=== PATIENT | male | born 1945 | race Caucasian/White ===

== ENCOUNTER → 2018-03-16 14:08 | Outpatient (REF) | payer MEDICARE, MEDICAID, SELFPAY ==
[2018-03-16 20:36] LABS: Abs Immature Grans 0.02 k/cumm (0.0-0.09); Absolute Basophil Count 0.02 k/cumm (0.0-0.2); Absolute Eosinophil Count 0.28 k/cumm (0.0-0.7); Absolute Lymphocyte Count 2.43 k/cumm (1.2-3.4); Absolute Monocyte Count 0.88 k/cumm (0.11-0.7); Absolute Neutrophil Count 4.85 k/cumm (1.2-6.7); Basophils % 0.2; Eosinophils % 3.3; HCT 40.8 % (40.0-50.0); HGB 13.4 g/dL (13.5-17.5); Immature Grans % 0.2; Lymphocytes % 28.7; Mean Corp. HGB Concentration 32.8 g/dL (32.0-36.0); Mean Corpuscular Hemoglobin 30.2 pg (27.0-33.0); Mean Corpuscular Volume 92.1 fL (80-95); Mean Platelet Volume 10.5 fL (8.0-11.0); Monocytes % 10.4; Neutrophils % 57.2; Platelet Count 178 x1000/uL (130-400); RBC 4.43 m/cumm (4.50-6.00); RBC Distribution Width 13.7 % (11.8-14.1); White Blood Cell Count 8.48 k/cumm (4.4-10.8)
[2018-03-16 20:41] LABS: Anion Gap 7.9 mmol/L (3-11); BUN 19 mg/dL (7-18); CO2 28.1 mmol/L (21.0-32.0); CREATININE 0.93 mg/dL (0.70-1.30); Calcium 8.6 mg/dL (8.5-10.1); Chloride 103 mmol/L (98-107); Glucose 176 mg/dL (70-100); Potassium 4.7 mmol/L (3.5-5.1); Sodium 139 mmol/L (136-145)
[2018-03-16 21:13] LABS: Hemoglobin A1C 7.6 % (4.5-6.2)
== END ==
LOC: NCHCN 14:08
PROVIDERS: PCP Nurse Practitioner Family; Visit Provider Physician Assistant Medical
DX: E11.9 Type 2 diabetes mellitus without complications (principal); I48.91 Unspecified atrial fibrillation; I10 Essential (primary) hypertension; R25.2 Cramp and spasm; E66.01 Morbid (severe) obesity due to excess calories
CPT/HCPCS: 80048; 83036; 85025

== ENCOUNTER 2018-03-19 06:58 | Emergency (ER) | payer MEDICARE, MEDICAID, SELFPAY ==
[2018-03-19] VITALS (90 sets, daily range): BP systolic 102–176; BP diastolic 51–106; PULSE 55–72; RESP 13–25; TEMP 36.7–36.9; O2SAT 83–98
--- NOTE | 2018-03-19 07:12 | ED.GENADUL ---
Disposition Disposition: STILL A PATIENT Condition: Stable Medical Decision Making - EKG Data -: EKG Interpreted by Me EKG shows normal: sinus rhythm, axis, intervals Rate: normal Interpretation: no acute changes - Radiology Data Radiology results: pending - Medical Decision Making 72-year-old male with history of hypertension, hyperlipidemia, diabetes who is presenting with back pain, chest pressure, shortness of breath. Differential includes ACS, PE, dissection though less likely because of the localized back pain. He has taken full dose aspirin at home. He did take nitroglycerin with some relief at home. His EKG is sinus rhythm at a rate of 63. There are no acute ST changes noted. IV established and LR started. Will try some nitroglycerin again here. Will check laboratory studies including troponin. CT scan of the chest ordered to evaluate for dissection and PE. He has no abdominal pain or low back pain; it is all centralized between the shoulder blades. Case will be signed out to oncoming physician, Dr. Almonte. History of Present Illness - General Chief complaint: Chest Pain Stated complaint: SOB ,SHOULDER BLADE Time Seen by Provider: 03/19/18 07:07 Source: patient, RN notes reviewed, old records reviewed Mode of arrival: ambulatory Limitations: no limitations - History of Present Illness Initial comments: Patient presents to the ED with complaints of back pain, chest pain, shortness of breath. Patient was awake when he noticed back pain in the center of his scapula that he states felt like somebody hit him with a ball-peen hammer. Subsequently developed chest pressure and shortness of breath. [place] that his arms were heavy and somewhat painful bilaterally. No radiation of discomfort into the neck or jaw. [place] a little warm all over and a little weak. Has no nausea or vomiting. He did take a nitroglycerin which seemed to help but then the symptoms started to come back. He also took full dose aspirin at home. The back pain does not go up and down his back; it is fairly localized between the scapula. The chest pain is more of a pressure feeling. Shortness of breath has not really resolved. He subsequently came in for evaluation. He does have a history of atrial fibrillation but is not on blood thinners because of hematuria. He has a history of catheterization in the distant past which did not show blockage but did show vasospasm. He is a former smoker stopping many years ago. He does have history of diabetes, high cholesterol, hypertension. He did have an echo earlier this year with an EF of 50-60%. - Related Data Atorvastatin [Lipitor] 40 mg PO DAILY 09/05/15 Furosemide [Lasix] 20 mg PO DAILY 09/05/15 MetFORMIN CR [Glucophage Xr] 750 mg PO BID 09/05/15 Sennosides/Docusate Sodium [Senokot-S Tablet] 1 tab PO BID 11/25/16 Acetaminophen/Diphenhydramine [Acetaminophen Pm Geltab] 1 each PO HS PRN PRN 08/19/17 Acetaminophen [Pain Relief] 1,000 mg PO Q4H PRN PRN #0 08/20/17 Allopurinol 100 mg PO BID #0 08/20/17 Gabapentin 300 mg PO BID #0 08/20/17 Metoprolol Succinate [Toprol Xl] 25 mg PO DAILY #30 tab.er.24h 08/20/17 Nitroglycerin [Nitrostat] 0.4 mg SL Q5 MIN PRN X3 PRN #100 tab 08/20/17 Aspirin 325 mg PO DAILY AM 08/25/17 Ibuprofen 800 mg PO PRN PRN 08/25/17 Allergies Allergy/AdvReac Type Severity Reaction Status Date / Time No Known Allergies Allergy Unverified 03/19/18 07:11 Review of Systems Constitutional: denies: chills, diaphoresis, fever Eyes: denies: eye pain, vision change ENT: denies: ear pain, throat pain, congestion Respiratory: shortness of breath. denies: cough Cardiovascular: chest pain. denies: palpitations, syncope Gastrointestinal: denies: abdominal pain, nausea, vomiting, diarrhea Genitourinary: denies: dysuria Musculoskeletal: back pain Skin: denies: rash Neurological: denies: headache, weakness, numbness Past Medical History - Past Medical History Medical history: AFIB, CAD, cancer (bladder), diabetes, GERD, hyperlipidemia, hypertension migraines, ANIVAL Surgical history: cancer surgery, herniorraphy, other (B TKR) - Social History Smoking status: former smoker Alcohol use: none Drug use: none General Exam - General Limitations: no limitations General appearance: alert, in no apparent distress, obese - Head Head exam: Present: atraumatic, normocephalic - Eye Eye exam: Present: normal apperance - Neck Neck exam: Present: normal inspection, full ROM - Respiratory Respiratory exam: Present: normal lung sounds bilaterally. Absent: respiratory distress, chest wall tenderness - Cardiovascular Cardiovascular Exam: Present: regular rate, normal rhythm, normal heart sounds, other (distal pulses in tact) - GI/Abdominal GI/Abdominal exam: Present: soft. Absent: distended, tenderness, guarding - Extremities Exam Extremities exam: Present: pedal edema (baseline/chronic). Absent: calf tenderness - Back Exam Back exam: Absent: tenderness, vertebral tenderness - Neurological Exam Neurological exam: Present: alert, oriented X3, CN II-XII intact - Psychiatric Psychiatric exam: Present: normal affect, normal mood - Skin Skin exam: Present: warm, dry, intact Course Vital Signs - 24 hr 08/25/18 07:05 Temperature 98.1 F Pulse 64 Respiratory 23 Rate Blood Pressure 132/67 Pulse Oximetry 97
[2018-03-19] MEDS: Lactated Ringers 500 ML IV (07:27)
[2018-03-19 07:33] LABS: Abs Immature Grans 0.02 k/cumm (0.0-0.09); Absolute Basophil Count 0.02 k/cumm (0.0-0.2); Absolute Eosinophil Count 0.21 k/cumm (0.0-0.7); Absolute Monocyte Count 0.76 k/cumm (0.11-0.7); Absolute Neutrophil Count 5.27 k/cumm (1.2-6.7); Basophils % 0.3; Eosinophils % 2.6; HCT 39.9 % (40.0-50.0); Immature Grans % 0.3; Lymphocytes % 21.3; Mean Corp. HGB Concentration 32.6 g/dL (32.0-36.0); Mean Corpuscular Volume 91.9 fL (80-95); Mean Platelet Volume 9.9 fL (8.0-11.0); Monocytes % 9.5; Platelet Count 166 x1000/uL (130-400); RBC 4.34 m/cumm (4.50-6.00); RBC Distribution Width 13.8 % (11.8-14.1); White Blood Cell Count 7.98 k/cumm (4.4-10.8)
[2018-03-19 07:48] LABS: Prothrombin Time 9.7 sec (9.3-10.8)
[2018-03-19 07:49] LABS: ALT 31 U/L (12-78); AST 17 U/L (15-37); Albumin 3.4 g/dL (3.4-5.0); Alkaline Phosphatase 145 U/L (46-116); Anion Gap 5.6 mmol/L (3-11); BUN 16 mg/dL (7-18); Bilirubin, Total 0.8 mg/dL (0.2-1.0); CO2 28.4 mmol/L (21.0-32.0); CREATININE 0.81 mg/dL (0.70-1.30); Calcium 8.6 mg/dL (8.5-10.1); Chloride 103 mmol/L (98-107); Glucose 236 mg/dL (70-100); Magnesium 1.6 mg/dL (1.8-2.4); Potassium 4.2 mmol/L (3.5-5.1); Sodium 137 mmol/L (136-145); Total Protein 7.1 g/dL (6.4-8.2); Troponin I < 0.02 ng/mL (0.00-0.06)
--- NOTE | 2018-03-19 08:30 | DI.RPTCT_ITS ---
SYMPTOM/DIAGNOSIS: CHEST AND BACK PAIN, ? PE OR DISSECTION CTA OF THORAX: CT angiography was performed with multi slice acquisition and multi planar and 3D reconstruction. Routine CTA of the chest was performed following the uneventful administration of intravenous contrast material. No priors for comparison. Comparison chest xray is 11/21/15. There is no evidence of a pulmonary embolus. The thoracic aorta is intact. There is mild atherosclerosis but no evidence of thoracic aortic dissection or aneurysm. Heart size is within normal limits. No pericardial effusion is seen. No evidence of right ventricular dysfunction are present. No significant mediastinal, hilar or axillary adenopathy is present. No pleural effusion is seen. There may be a tiny right pleural effusion. The lungs show dependent infiltrates. These may represent atelectasis. Pneumonia cannot be excluded. No focal consolidating infiltrates are seen. No pulmonary nodules are present. Upper abdominal images appear to show tiny hyperdensities in the dependent portion of the gallbladder. This may represent gallstones. Degenerative changes are seen in the spine. There is a sclerotic focus seen in the left anterior third rib. This is present on prior chest xrays and is most consistent with a benign bone island. IMPRESSION: 1. No evidence of a pulmonary embolus, thoracic aortic dissection or aneurysm. 2. Dependent infiltrates in the lungs which may represent atelectasis. Pneumonia cannot be excluded. 3. Findings which may represent stones within the gallbladder.
[2018-03-19] MEDS: Omnipaque 350 MG/ML 100 ML BTL IJ (08:35)
--- NOTE | 2018-03-19 08:52 | DI.VRAD_ITS ---
EXAM: CT Angiography Chest With Intravenous Contrast EXAM DATE/TIME: 03/19/2018 8:02 AM CLINICAL HISTORY: 72 years old, male; Signs and symptoms; Other: Chest pain/back pain; R/O dissection, R/O pe TECHNIQUE: Axial computed tomographic angiography images of the chest with intravenous contrast using CT angiography protocol. Coronal and sagittal reformatted images were created and reviewed. MIP reconstructed images were created and reviewed. CONTRAST: 100 ml of Omnipaque 350 administered intravenously. COMPARISON: CR - CHEST 2 VIEWS PA,LAT 08/25/2017 3:05 PM FINDINGS: Pulmonary arteries: No evidence of pulmonary embolus to the segmental level. Aorta: No aneurysm of the ascending aorta. No dissection of the aorta. Lungs: Mild opacities in both lower lobes may represent atelectasis or pneumonia. Pleural space: There may be small bilateral pleural effusions.. Heart: Normal. No cardiomegaly. No pericardial effusion. Bones/joints: 1 cm sclerotic density noted in the left anterior third rib , compatible with bone island (enostosis) in patient without history of neoplastic disease.. Additional sclerotic densities in the thoracic vertebral bodies Nuclear medicine bone scan may be useful for further evaluation if clinically indicated. Soft tissues: Unremarkable. Lymph nodes: Unremarkable. No enlarged lymph nodes. Gallbladder and bile ducts: There may be gallstones in the gallbladder. IMPRESSION: 1. No evidence of pulmonary embolus to the segmental level. 2. No aneurysm of the ascending aorta. 3. No dissection of the aorta. 4. There may be small bilateral pleural effusions.. 5. Mild opacities in both lower lobes may represent atelectasis or pneumonia. 6. There may be gallstones in the gallbladder. Dictated and Authenticated by: Clare Nicholson MD. Ordering:ROGELIO UMAÑA MD
--- NOTE | 2018-03-19 09:34 | ED.FU ---
Disposition Disposition: STILL A PATIENT Condition: Stable Medical Decision Making - Lab Data Laboratory Tests 03/19/18 03/19/18 03/19/18 07:15 07:15 07:15 WBC 7.98 RBC 4.34 L Hgb 13.0 L Hct 39.9 L MCV 91.9 MCH 30.0 MCHC 32.6 RDW 13.8 Plt Count 166 MPV 9.9 Immature Gran % 0.3 Neutrophils % 66.0 Lymphocytes % 21.3 Monocytes % 9.5 Eosinophils % 2.6 Basophils % 0.3 Absolute Neutrophils 5.27 Absolute Lymphocytes 1.70 Absolute Monocytes 0.76 H Absolute Eosinophils 0.21 Absolute Basophils 0.02 PT 9.7 INR 1.0 APTT 22.0 Sodium 137 Potassium 4.2 Chloride 103 Carbon Dioxide 28.4 Anion Gap 5.6 BUN 16 Creatinine 0.81 Estimated GFR/1.73 m2 >= 60.00 Glucose 236 H Calcium 8.6 Magnesium 1.6 L Total Bilirubin 0.8 AST 17 ALT 31 Alkaline Phosphatase 145 H Troponin I < 0.02 Total Protein 7.1 Albumin 3.4 Care Signed Out By:: Darian - Vital Signs Recent Vitals - 8H: Vital Signs - 8 hr 03/19/18 03/19/18 03/19/18 06:59 07:00 07:01 Temperature Pulse 61 Respiratory 17 14 20 Rate Blood Pressure 140/67 Pulse Oximetry 97 97 97 03/19/18 03/19/18 03/19/18 07:02 07:05 07:10 Temperature 36.7 C Pulse 62 64 Respiratory 20 23 20 Rate Blood Pressure 132/67 132/67 Pulse Oximetry 97 97 96 03/19/18 03/19/18 03/19/18 07:15 07:17 07:20 Temperature Pulse 61 Respiratory 23 21 17 Rate Blood Pressure 110/61 Pulse Oximetry 97 94 L 03/19/18 03/19/18 03/19/18 07:30 07:31 07:38 Temperature Pulse 61 61 Respiratory 19 14 19 Rate Blood Pressure 119/69 104/60 Pulse Oximetry 92 L 96 93 L 03/19/18 03/19/18 03/19/18 07:40 07:42 07:46 Temperature Pulse 66 60 Respiratory 16 15 18 Rate Blood Pressure 102/51 106/59 Pulse Oximetry 90 L 91 L 03/19/18 03/19/18 03/19/18 07:50 08:00 08:01 Temperature Pulse 55 L Respiratory 17 15 16 Rate Blood Pressure 109/64 Pulse Oximetry 95 93 L 94 L 03/19/18 03/19/18 03/19/18 08:29 08:30 08:32 Temperature Pulse 56 L Respiratory 20 18 15 Rate Blood Pressure 116/66 Pulse Oximetry 96 96 03/19/18 03/19/18 03/19/18 08:40 08:47 08:50 Temperature Pulse 56 L Respiratory 20 17 15 Rate Blood Pressure 108/57 Pulse Oximetry 97 96 96 03/19/18 03/19/18 03/19/18 09:00 09:01 09:10 Temperature Pulse 59 L Respiratory 22 18 16 Rate Blood Pressure 106/68 Pulse Oximetry 97 98 96 03/19/18 03/19/18 09:16 09:20 Temperature Pulse 56 L Respiratory 17 16 Rate Blood Pressure 128/74 Pulse Oximetry 97 96 - Continuation of Care Continuation of Care Plan: Patient's CT Angio results have returned from virtual radiology and show no evidence of aortic dissection pulmonary embolism or aortic aneurysm. There may be small bilateral pleural effusions over the superior very benign. Mild opacities in both lower lobes that may represent atelectasis or pneumonia. May be gallstones in the gallbladder. Patient's initial troponin is negative. Because of the patient's cardiac risk factors of hypertension, high cholesterol, distant tobacco use, obesity, family history of cardiac disease, and diabetes I feel that at the very least she requires serial troponins. Currently the hospital is full, we will get his second troponin reevaluate for potential placement options. 11:12 AM EKG Rate 56, NJ 200, QTc 413, QRS 112, sinus bradycardia, no ST elevations or depressions, inverted T-wave in lead III. Q-wave in lead III and small Q-wave in aVF. 11:40 AM Patient serial troponins are negative, EKGs are consistently normal. I did discuss the case with Dr. Ferreira the hospitalist for potential observation versus discharge. We reviewed the patient's [facility] lab work, and procedures, and on 12/09/2017 which was 3 months ago the patient had a negative stress test results are as follows: No ischemia or scar. Left ventricular function is normal. With a recent negative stress test, 2 negative serial troponins we will get one additional troponin. We did get the patient up and ambulate him around the department multiple times, he developed no chest pain shortness of breath or arm pain. I had a long discussion with the hospitalist, patient, and myself regarding potential discharge with close follow-up on Wednesday, potential outpatient stress test, cardiology follow-up at his primary [facility] at [facility], versus admission, through shared decision making process of reviewing all the risks and benefits, the patient has elected for discharge home. I had an extremely long and thorough discussion with the patient and his family at bedside regarding red flags for which to return including any repeat of his symptoms, worsening pain, or other factors including diaphoresis arm pain neck pain the patient understands. Patient does have home nitroglycerin. Upon review of the patient's previous discharge instructions and his home medications he already is on a statin medication and beta-ana rosa. With a negative stress test just a few months ago, negative cardiac catheterization, and history of Prinzmetal's angina, the patient may benefit from calcium channel blockers and however he has been on these before and did not tolerate them well secondary to edema. We will maintain his current beta-ana rosa regimen. We will repeat troponin for the third stroke, and if this is normal, will maintain the plan the patient will be discharged home with close follow-up. 4:04 PM The patient's third troponin has returned normal. EKG continues to remain normal. The patient continues to remain chest pain-free, arm pain or neck pain free. Remainder of his workup has been benign. Patient's EKG is unchanged. I feel that it is appropriate after discussion with the patient, and the remainder of the medical staff to discharge the patient with close cardiac follow-up. As discussed previously we had a long discussion regarding red flags for which to immediately return the patient understands. He will follow outpatient with his [facility], a stress test will be scheduled, and he will return if he has any worsening or return of his symptoms. I have extensively reviewed the treatment plan and discharge instructions with the patient and their family. I have addressed all patient concerns at this time. The patient and family was made aware of what symptoms to monitor for that would warrant a return to the emergency department. Discussed the plan with the patient and family, they demonstrate verbal understanding and agreement with our assessment and plan at this time. EKG 15: 17 Rate 66, NJ 188, QTc 430, QRS 114, sinus rhythm, no ST elevations or depressions, no significant T-wave inversions. Q waves noted in lead III and a single inverted T-wave in lead III..
--- NOTE | 2018-03-19 09:37 | ED.FU_ITS ---
Disposition Disposition: STILL A PATIENT Condition: Stable Medical Decision Making - Lab Data Laboratory Tests 03/19/18 03/19/18 03/19/18 07:15 07:15 07:15 WBC 7.98 RBC 4.34 L Hgb 13.0 L Hct 39.9 L MCV 91.9 MCH 30.0 MCHC 32.6 RDW 13.8 Plt Count 166 MPV 9.9 Immature Gran % 0.3 Neutrophils % 66.0 Lymphocytes % 21.3 Monocytes % 9.5 Eosinophils % 2.6 Basophils % 0.3 Absolute Neutrophils 5.27 Absolute Lymphocytes 1.70 Absolute Monocytes 0.76 H Absolute Eosinophils 0.21 Absolute Basophils 0.02 PT 9.7 INR 1.0 APTT 22.0 Sodium 137 Potassium 4.2 Chloride 103 Carbon Dioxide 28.4 Anion Gap 5.6 BUN 16 Creatinine 0.81 Estimated GFR/1.73 m2 >= 60.00 Glucose 236 H Calcium 8.6 Magnesium 1.6 L Total Bilirubin 0.8 AST 17 ALT 31 Alkaline Phosphatase 145 H Troponin I < 0.02 Total Protein 7.1 Albumin 3.4 Care Signed Out By:: Darian - Vital Signs Recent Vitals - 8H: Vital Signs - 8 hr 03/19/18 03/19/18 03/19/18 06:59 07:00 07:01 Temperature Pulse 61 Respiratory 17 14 20 Rate Blood Pressure 140/67 Pulse Oximetry 97 97 97 03/19/18 03/19/18 03/19/18 07:02 07:05 07:10 Temperature 36.7 C Pulse 62 64 Respiratory 20 23 20 Rate Blood Pressure 132/67 132/67 Pulse Oximetry 97 97 96 03/19/18 03/19/18 03/19/18 07:15 07:17 07:20 Temperature Pulse 61 Respiratory 23 21 17 Rate Blood Pressure 110/61 Pulse Oximetry 97 94 L 03/19/18 03/19/18 03/19/18 07:30 07:31 07:38 Temperature Pulse 61 61 Respiratory 19 14 19 Rate Blood Pressure 119/69 104/60 Pulse Oximetry 92 L 96 93 L 03/19/18 03/19/18 03/19/18 07:40 07:42 07:46 Temperature Pulse 66 60 Respiratory 16 15 18 Rate Blood Pressure 102/51 106/59 Pulse Oximetry 90 L 91 L 03/19/18 03/19/18 03/19/18 07:50 08:00 08:01 Temperature Pulse 55 L Respiratory 17 15 16 Rate Blood Pressure 109/64 Pulse Oximetry 95 93 L 94 L 03/19/18 03/19/18 03/19/18 08:29 08:30 08:32 Temperature Pulse 56 L Respiratory 20 18 15 Rate Blood Pressure 116/66 Pulse Oximetry 96 96 03/19/18 03/19/18 03/19/18 08:40 08:47 08:50 Temperature Pulse 56 L Respiratory 20 17 15 Rate Blood Pressure 108/57 Pulse Oximetry 97 96 96 03/19/18 03/19/18 03/19/18 09:00 09:01 09:10 Temperature Pulse 59 L Respiratory 22 18 16 Rate Blood Pressure 106/68 Pulse Oximetry 97 98 96 03/19/18 03/19/18 09:16 09:20 Temperature Pulse 56 L Respiratory 17 16 Rate Blood Pressure 128/74 Pulse Oximetry 97 96 - Continuation of Care Continuation of Care Plan: Patient's CT Angio results have returned from virtual radiology and show no evidence of aortic dissection pulmonary embolism or aortic aneurysm. There may be small bilateral pleural effusions over the superior very benign. Mild opacities in both lower lobes that may represent atelectasis or pneumonia. May be gallstones in the gallbladder. Patient's initial troponin is negative. Because of the patient's cardiac risk factors of hypertension, high cholesterol , distant tobacco use, obesity, family history of cardiac disease, and diabetes I feel that at the very least she requires serial troponins. Currently the hospital is full, we will get his second troponin reevaluate for potential placement options. 11:12 AM EKG Rate 56, ID 200, QTc 413, QRS 112, sinus bradycardia, no ST elevations or depressions, inverted T-wave in lead III. Q-wave in lead III and small Q-wave in aVF. 11:40 AM Patient serial troponins are negative, EKGs are consistently normal. I did discuss the case with Dr. Ferreira the hospitalist for potential observation versus discharge. We reviewed the patient's [facility] lab work, and procedures , and on 12/09/2017 which was 3 months ago the patient had a negative stress test results are as follows: No ischemia or scar. Left ventricular function is normal. With a recent negative stress test, 2 negative serial troponins we will get one additional troponin. We did get the patient up and ambulate him around the department multiple times, he developed no chest pain shortness of breath or arm pain. I had a long discussion with the hospitalist, patient, and myself regarding potential discharge with close follow-up on Wednesday, potential outpatient stress test, cardiology follow-up at his primary [employer] at [facility], versus admission, through shared decision making process of reviewing all the risks and benefits, the patient has elected for discharge home. I had an extremely long and thorough discussion with the patient and his family at bedside regarding red flags for which to return including any repeat of his symptoms, worsening pain, or other factors including diaphoresis arm pain neck pain the patient understands. Patient does have home nitroglycerin. Upon review of the patient's previous discharge instructions and his home medications he already is on a statin medication and beta-ana rosa. With a negative stress test just a few months ago, negative cardiac catheterization, and history of Prinzmetal's angina, the patient may benefit from calcium channel blockers and however he has been on these before and did not tolerate them well secondary to edema. We will maintain his current beta-ana rosa regimen. We will repeat troponin for the third stroke, and if this is normal, will maintain the plan the patient will be discharged home with close follow-up. 4:04 PM The patient's third troponin has returned normal. EKG continues to remain normal. The patient continues to remain chest pain-free, arm pain or neck pain free. Remainder of his workup has been benign. Patient's EKG is unchanged. I feel that it is appropriate after discussion with the patient, and the remainder of the medical staff to discharge the patient with close cardiac follow-up. As discussed previously we had a long discussion regarding red flags for which to immediately return the patient understands. He will follow outpatient with his [employer], a stress test will be scheduled, and he will return if he has any worsening or return of his symptoms. I have extensively reviewed the treatment plan and discharge instructions with the patient and their family. I have addressed all patient concerns at this time. The patient and family was made aware of what symptoms to monitor for that would warrant a return to the emergency department. Discussed the plan with the patient and family, they demonstrate verbal understanding and agreement with our assessment and plan at this time. EKG 15: 17 Rate 66, ID 188, QTc 430, QRS 114, sinus rhythm, no ST elevations or depressions , no significant T-wave inversions. Q waves noted in lead III and a single inverted T-wave in lead III..
[2018-03-19 11:21] LABS: Troponin I < 0.02 ng/mL (0.00-0.06)
--- NOTE | 2018-03-19 12:36 | NUR.NOTE ---
Nursing Note: Patient ambulated for several minutes. O2 saturation between 95-98% HR 78-82. Pt did not complain of any chest pain, sob, dizziness, or any other symptoms. J Gage, DO aware.
[2018-03-19 15:59] LABS: Troponin I < 0.02 ng/mL (0.00-0.06)
== END 2018-03-19 16:20 | disposition home or self-care (01) ==
PROVIDERS: Emergency Medicine; Emergency Provider Student in an Organized Health Care Education/Training Program; PCP Nurse Practitioner Family
DX: R07.9 Chest pain, unspecified (principal); M54.6 Pain in thoracic spine; R06.02 Shortness of breath; I10 Essential (primary) hypertension; E11.9 Type 2 diabetes mellitus without complications; Z79.84 Long term (current) use of oral hypoglycemic drugs; I48.91 Unspecified atrial fibrillation; I25.10 Atherosclerotic heart disease of native coronary artery without angina pectoris
CPT/HCPCS: 71275; 93005; 96360; 96361; 99285 ×2; 36415; 80053; 83735; 84484; 85025; 85610; 85730; 93010; J3490

== ENCOUNTER 2018-06-20 09:44 | Outpatient (REF) | payer MEDICARE, SELFPAY ==
[2018-06-20 21:29] LABS: Anion Gap 10.3 mmol/L (3-11); BUN 28 mg/dL (7-18); Bilirubin Negative (Negative); Blood Trace-lysed (Negative); CO2 24.7 mmol/L (21.0-32.0); CREATININE 0.86 mg/dL (0.70-1.30); Calcium 8.9 mg/dL (8.5-10.1); Chloride 103 mmol/L (98-107); Clarity Clear; Glucose 202 mg/dL (70-100); Glucose 250 mg/dL (Negative); Ketones Negative (Negative); LDL CHOLESTEROL 76 mg/dL (<100); Leukocyte Esterase Negative (Negative); Magnesium 1.7 mg/dL (1.8-2.4); Nitrite Negative (Negative); Potassium 4.6 mmol/L (3.5-5.1); Sodium 138 mmol/L (136-145); Specific Gravity 1.025 (1.005-1.025); Urobilinogen 0.2 EU/dL (Up TO 0.2); pH 5.5 (5-8)
[2018-06-20 21:32] LABS: Abs Immature Grans 0.02 k/cumm (0.0-0.09); Absolute Basophil Count 0.04 k/cumm (0.0-0.2); Absolute Eosinophil Count 0.22 k/cumm (0.0-0.7); Absolute Lymphocyte Count 2.22 k/cumm (1.2-3.4); Absolute Monocyte Count 0.76 k/cumm (0.11-0.7); Absolute Neutrophil Count 4.57 k/cumm (1.2-6.7); Basophils % 0.5; Eosinophils % 2.8; HCT 40.9 % (40.0-50.0); HGB 13.5 g/dL (13.5-17.5); Immature Grans % 0.3; Lymphocytes % 28.4; Mean Corpuscular Hemoglobin 30.2 pg (27.0-33.0); Mean Corpuscular Volume 91.5 fL (80-95); Mean Platelet Volume 10.9 fL (8.0-11.0); Monocytes % 9.7; Neutrophils % 58.3; Platelet Count 180 x1000/uL (130-400); RBC 4.47 m/cumm (4.50-6.00); RBC Distribution Width 13.5 % (11.8-14.1); White Blood Cell Count 7.83 k/cumm (4.4-10.8)
[2018-06-20 21:58] LABS: Epithelial Cells Negative HPF (Negative); RBC 0-2 (0-2); WBC Negative HPF (0-5)
[2018-06-20 21:59] LABS: Bacteria Rare HPF (Negative); C & S Indicated? No; Casts Negative LPF (Negative); Crystals Negative HPF (Negative); Mucus Trace (Negative); Other Cells Negative (Negative)
[2018-06-20 22:37] LABS: HDL Cholesterol 54 mg/dL (40-60)
[2018-06-20 22:56] LABS: Creatine Kinase 43 U/L (39-308)
== END 2018-06-20 10:04 ==
LOC: NCHCN 09:44
PROVIDERS: PCP Nurse Practitioner Family; Visit Provider Nurse Practitioner Family
DX: R25.2 Cramp and spasm (principal); I48.91 Unspecified atrial fibrillation; E11.9 Type 2 diabetes mellitus without complications; I10 Essential (primary) hypertension; E78.5 Hyperlipidemia, unspecified; R31.0 Gross hematuria; M75.100 Unspecified rotator cuff tear or rupture of unspecified shoulder, not specified as traumatic
CPT/HCPCS: 80048; 82550; 83721; 81003; 81015; 83718; 83735; 85025

== ENCOUNTER 2018-06-28 00:52 | Outpatient (CLI) | payer MEDICARE, SELFPAY ==
--- NOTE | 2018-07-07 14:27 | DIABASSESS_ITS ---
Date of service: 07/07/18 Time of Service: 14:04 Diabetes Note NOTE: DESCRIPTION/ASSESSMENT: Kelvin Mejía presents for diabetes support focused on medical nutrition therapy. He was last seen 2014. He has had a recent increase in A1c to 9.6. He manages diabetes with Metformin 1000mg twice daily. Kelvin tests his blood sugar fasting 161-206 over past week. He eats 2 egs and phipps for breakfast; snacks on fruit at lunch, meat, canned or frozen vegetables and potato or sweet potato for suppler. He does love to make donuts and pie and tries to give it away. Kelvin voices understanding of foods that raise his blood sugar. Kelvin has back and knee pain which makes walking a challenge, although he does walk on his road. Kelvin denies stress and he has a friend and grandchildren for company and support. He has many stories about horses, hunting and tractors which he enjoys remembering and passing on his knowledge and expertise to his grandchildren. INTERVENTION: Reviewed basics of diabetes food guide with focus on ways to increase the resistant starch in the foods that he wants to eat. Discussed portions. Discussed blood sugar goal of 130 range and encouraged him to think about what might be causing hyperglycemia including pain, infection, food and physical activity. Discussed physical activity and ways to walk 10 minutes daily and he feels he can do this. PLAN: Kelvin agrees to: Cool starches before eating; cut his portions of starch Walk 10+ minutes every day outside as possible Increase vegetable portions and participate in [employer]. Time Spent in Nutritional Counseling and Treatment: 65 minutes face to face
== END 2018-06-28 01:12 ==
PROVIDERS: PCP Nurse Practitioner Family; Visit Provider Dietitian, Registered
DX: E11.9 Type 2 diabetes mellitus without complications (principal); Z71.3 Dietary counseling and surveillance
CPT/HCPCS: 97802

== ENCOUNTER 2018-08-06 08:07 | Emergency (ER) | payer MEDICARE, SELFPAY ==
[2018-08-06] VITALS (90 sets, daily range): BP systolic 110–181; BP diastolic 73–112; PULSE 61–74; RESP 8–23; TEMP 36.7; O2SAT 90–100
--- NOTE | 2018-08-06 08:24 | DI.RAD_ITS ---
SYMPTOM/DIAGNOSIS: CHEST PAIN, R/O ACUTE DISEASE PA AND LATERAL CHEST: Comparison is made with 25 Aug 2017. The exam is limited by poor pulmonary inflation. The heart appears enlarged. The aorta is tortuous. No focal infiltrate or effusion is seen. IMPRESSION: Limited exam. No acute abnormality is identified.
--- NOTE | 2018-08-06 08:27 | ED.GENADUL_ITS ---
Discharge Plan Disposition Patient Disposition: [facility] Condition: Stable Discharge Details Chief Complaint: Chest Pain Clinical Impression: Chest pain, rule out acute myocardial infarction Primary Care Provider: Merna Chino ED Provider: Carley Gama Home Meds and New Rx's Prescriptions: No Action atorvastatin [Lipitor] 40 MG tablet 40 mg PO DAILY RF: 0 furosemide 20 MG tablet 20 mg PO DAILY RF: 0 metformin 750 MG tablet extended release 24 hr 1,000 mg PO BID RF: 0 sennosides-docusate sodium [Senokot-S] 1 EACH tablet 1 tab PO BID RF: 0 ibuprofen 800 MG tablet 800 mg PO PRN PRNRF: 0 aspirin 325 MG tablet 325 mg PO DAILY AM RF: 0 diphenhydramine-acetaminophen [Acetaminophen PM] 1 EACH tablet 1 ea PO HS PRN PRN (Reason: Sleep) RF: 0 nitroglycerin [Nitrostat] 0.4 MG tablet, sublingual 0.4 mg Sublingual Q5 MIN PRN X3 PRNQty: 100 RF: 0 allopurinol 100 MG tablet 100 mg PO BID Qty: 0 RF: 0 acetaminophen [Pain Relief] 500 MG tablet 1,000 mg PO Q4H PRN PRNQty: 0 RF: 0 gabapentin 300 MG capsule 300 mg PO BID Qty: 0 RF: 0 diltiazem HCl 240 mg Capsule,Extended Release 24 Hr 240 mg PO DAILY RF: 0 finasteride 5 mg Tablet 5 mg PO DAILY RF: 0 Metoprolol Succinate [Toprol Xl] 25 MG Tab.Er.24h 50 mg PO DAILY RF: 0 pantoprazole [Protonix] 40 mg Tablet,Delayed Release (Dr/Ec) 40 mg PO DAILY RF: 0 Discharge Data Discharge Date/Time-TO BE ENTERED AT DEPARTURE: 08/06/18 16:49 Medical Decision Making 72-year-old male with history of paroyxsmal atrial fibrillation, coronary artery disease, diabetes, hypertension, high cholesterol, GERD and history of bladder cancer with chest pain and pain between scapula since 3am. EKG notes a rate of 70, sinus, no acute ST elevation or depression. Review of [facility] records note that patient was seen at [facility] yesterday for cardiac CT. Physician notes from Dr. Lizette Jason administrative tech on 07/13/18 noted that patient was having a cardiac CT done to evaluate for consideration for blood thinners versus a watchman procedure. He had been taking Eliquis but this was stopped due to recent hematuria. He had a nuclear stress test in November 2017 which was negative and he had an echocardiogram in October 2017 which noted an EF of 76%. 1000 --labs and imaging reviewed. Normal white blood cell count. Glucose 220. Magnesium 1.7. Troponin negative. Chest x-ray negative. Mediastinum and noted to be stable. Patient complained of return of chest and back pain. Nitropaste ordered. 1015 --discussed with [facility] cardiology. Presentation can be likely consistent with angina versus coronary spasm. Recommend removing Nitropaste, to assess patient's chest pain and give sublingual nitro if needed. Noted patient to be on diltiazem last month, which does not appear patients with this today. Also recommend checking upper extremity and lower extremity blood pressures. Recommends patient be admitted for chest pain rule out with serial troponins. Discussed that there are no beds available here, they are only excepting emergent transfers but will place patient on their list if potential discharges. 1055 --left arm BP 132/86, right arm BP 150/76, left leg BP 157/93. 1230 --discussed with [facility] Sandee Augustin nurse practitioner - accepts patient for transfer. 1310 --[facility] called to state they have a bed available for this patient. As patient is followed at [facility], will transfer patient to [facility] instead of [facility]. [facility] notified. Medical Records Medical records reviewed: Yes I reviewed the patient's medical records. Imaging Data Radiologic Study: Radiologist's impression: XR Chest, 2 Views EXAM DATE/TIME: 08/06/2018 8:26 AM CLINICAL HISTORY: 72 years old, male; Pain; Chest pain; Type not specified; Patient HX: Rule out acute process; Additional info: Concern about widened mediastinum TECHNIQUE: XR of the chest, 2 views. COMPARISON: CR CHEST 2 VIEWS PA,LAT 08/25/2017 3:05 PM FINDINGS: Lungs: Unremarkable. No consolidation. Pleural space: Unremarkable. No pleural effusion. No pneumothorax. Heart/Mediastinum: Mediastinum stable from previous examination. If there is concern for aortic pathology, recommend enhanced CT examination. Vasculature: Aortic ectasia. Bones/joints: Unremarkable. IMPRESSION: Mediastinum stable from previous examination. If there is concern for aortic pathology, recommend enhanced CT examination. Lab Data Lab results reviewed: Yes I reviewed the patient's lab results. Laboratory Tests Range/Units 08/06/18 08/06/18 08/06/18 08:20 08:20 11:54 WBC (4.4-10.8) k/cumm 7.38 RBC (4.50-6.00) m/cumm 4.30 L Hgb (13.5-17.5) g/dL 13.2 L Hct (40.0-50.0) % 39.7 L MCV (80-95) fL 92.3 MCH (27.0-33.0) pg 30.7 MCHC (32.0-36.0) g/dL 33.2 RDW (11.8-14.1) % 13.2 Plt Count (130-400) x1000/uL 166 MPV (8.0-11.0) fL 10.0 Immature Gran % 0.1 Neutrophils % 57.8 Lymphocytes % 28.2 Monocytes % 9.6 Eosinophils % 3.9 Basophils % 0.4 Absolute Neutrophils (1.2-6.7) k/cumm 4.26 Absolute Lymphocytes (1.2-3.4) k/cumm 2.08 Absolute Monocytes (0.11-0.7) k/cumm 0.71 H Absolute Eosinophils (0.0-0.7) k/cumm 0.29 Absolute Basophils (0.0-0.2) k/cumm 0.03 Sodium (136-145) mmol/L 140 Potassium (3.5-5.1) mmol/L 4.5 Chloride (98-107) mmol/L 102 Carbon Dioxide (21.0-32.0) mmol/L 28.0 Anion Gap (3-11) mmol/L 10.0 BUN (7-18) mg/dL 24 H Creatinine (0.70-1.30) mg/dL 1.03 Estimated GFR/1.73 m2 (mL/min/1.73m2) >= 60.00 Glucose (70-100) mg/dL 220 H Calcium (8.5-10.1) mg/dL 8.7 Magnesium (1.8-2.4) mg/dL 1.7 L Total Bilirubin (0.2-1.0) mg/dL 0.4 AST (15-37) U/L 18 ALT (12-78) U/L 36 Alkaline Phosphatase (46-116) U/L 140 H Troponin I (0.00-0.06) ng/mL < 0.02 < 0.02 Total Protein (6.4-8.2) g/dL 7.0 Albumin (3.4-5.0) g/dL 3.4 Range/Units 08/06/18 16:30 WBC (4.4-10.8) k/cumm RBC (4.50-6.00) m/cumm Hgb (13.5-17.5) g/dL Hct (40.0-50.0) % MCV (80-95) fL MCH (27.0-33.0) pg MCHC (32.0-36.0) g/dL RDW (11.8-14.1) % Plt Count (130-400) x1000/uL MPV (8.0-11.0) fL Immature Gran % Neutrophils % Lymphocytes % Monocytes % Eosinophils % Basophils % Absolute Neutrophils (1.2-6.7) k/cumm Absolute Lymphocytes (1.2-3.4) k/cumm Absolute Monocytes (0.11-0.7) k/cumm Absolute Eosinophils (0.0-0.7) k/cumm Absolute Basophils (0.0-0.2) k/cumm Sodium (136-145) mmol/L Potassium (3.5-5.1) mmol/L Chloride (98-107) mmol/L Carbon Dioxide (21.0-32.0) mmol/L Anion Gap (3-11) mmol/L BUN (7-18) mg/dL Creatinine (0.70-1.30) mg/dL Estimated GFR/1.73 m2 (mL/min/1.73m2) Glucose (70-100) mg/dL Calcium (8.5-10.1) mg/dL Magnesium (1.8-2.4) mg/dL Total Bilirubin (0.2-1.0) mg/dL AST (15-37) U/L ALT (12-78) U/L Alkaline Phosphatase (46-116) U/L Troponin I (0.00-0.06) ng/mL < 0.02 Total Protein (6.4-8.2) g/dL Albumin (3.4-5.0) g/dL ECG Data Attestation: I personally reviewed and interpreted this ECG (s) as follows: Interpretation: 08: Rate of 70, sinus, no acute ST elevation or depression, QTC 427, QRS 110 HPI General Mode of arrival: ambulatory . Date/Time Provider Initiated Documentation: 08/06/18 08:17 . Limitations to Documentation: no limitations . Information obtained by: patient . HPI Narrative: Patient is a 72-year-old male with a history of diabetes, coronary artery disease, atrial fibrillation, GERD, hypertension, hyperlipidemia, bladder answer and obstructive sleep apnea who presents to the ED with complaint of chest pain and back pain since 3 AM this morning. Patient states he felt fatigued with leg cramps last night prior to bed but had no chest or back pain. Patient states he had difficulty sleeping due to his leg cramps and awoke to take Tylenol and developed substernal pressure-like chest pain and mid back pain between his scapula while laying in bed. He denies any other radiation of pain. He also admits to feeling unsteady and short of breath at times. Patient states he took 3 nitro with some relief after the second and third nitro. Patient states the chest pain and back pain resolved while here in the ED. Patient states he has had this intermittent chest and back pain for the past several months for which she has occasionally taken nitro with relief, but was told by his PCP and administrative tech to go to the emergency department if he does not have relief of his pain with nitro. Patient states he was seen at [facility] yesterday for scheduled imaging for issues related to my heart . Patient denies any fever, cough, vomiting, diarrhea, recent hospital admission. Patient states he received a flu shot this year. Patient states he did not take his regular medications at this morning. Patient states he otherwise has been eating and drinking normally patient states his glucose yesterday was 181. Related Data Home Medications Medication Instructions Recorded Confirmed atorvastatin [Lipitor] 40 mg PO DAILY 09/05/15 08/06/18 furosemide 20 mg PO DAILY 09/05/15 08/06/18 metformin 1,000 mg PO BID 09/05/15 08/06/18 sennosides-docusate sodium 1 tab PO BID 05/03/17 01/12/19 [Senokot-S] diphenhydramine-acetaminophen 1 ea PO HS PRN PRN 08/19/17 08/06/18 [Acetaminophen PM] acetaminophen [Pain Relief] 1,000 mg PO Q4H PRN PRN #0 08/20/17 08/06/18 allopurinol 100 mg PO BID #0 08/20/17 08/06/18 gabapentin 300 mg PO BID #0 08/20/17 08/06/18 nitroglycerin [Nitrostat] 0.4 mg SUBLINGUAL Q5 MIN PRN X3 08/20/17 08/06/18 PRN #100 tab aspirin 325 mg PO DAILY AM 08/25/17 08/06/18 ibuprofen 800 mg PO PRN PRN 08/25/17 08/06/18 Metoprolol Succinate [Toprol Xl] 50 mg PO DAILY 08/06/18 08/06/18 diltiazem HCl 240 mg PO DAILY 08/06/18 08/06/18 finasteride 5 mg PO DAILY 08/06/18 08/06/18 pantoprazole [Protonix] 40 mg PO DAILY 08/06/18 08/06/18 Previous Rx's Medication Instructions Recorded acetaminophen [Pain Relief] 1,000 mg PO Q4H PRN PRN #0 08/20/17 allopurinol 100 mg PO BID #0 08/20/17 gabapentin 300 mg PO BID #0 08/20/17 nitroglycerin [Nitrostat] 0.4 mg SUBLINGUAL Q5 MIN PRN X3 08/20/17 PRN #100 tab Allergies Allergy/AdvReac Type Severity Reaction Status Date / Time No Known Allergies Allergy Unverified 08/06/18 08:17 General Stated Complaint: Chest Pain JACQUELINE: 2 Review of Systems Review of Systems All systems reviewed & are unremarkable except as noted in HPI and below Constitutional Reports as per HPI, Denies chills and Denies fever(s) Eyes Denies blurry vision ENT Reports dizziness, Denies sore throat and Denies throat swelling Cardiovascular Reports chest pain and Reports dyspnea Respiratory Reports dyspnea Gastrointestinal Denies abdominal pain, Denies diarrhea and Denies vomiting Genitourinary Denies hematuria and Denies dysuria Musculoskeletal Reports back pain and Denies numbness Integumentary/Breasts Denies lesions and Denies rash Neurologic Reports dizziness and Denies numbness Allergic/Immunologic Denies throat swelling [facility] Medical History Bladder cancer (Acute) Hyperlipemia (Acute) Atrial fibrillation (Chronic) Coronary artery disease (Chronic) Diabetes (Chronic) GERD (gastroesophageal reflux disease) (Chronic) HTN (hypertension) (Chronic) Migraine (Chronic) Obstructive sleep apnea (Chronic) Surgical History History of bladder surgery (Acute) History of hernia repair (Chronic) History of knee replacement (Chronic) Social History Smoking/Tobacco Use Status: Former Tobacco Use alcohol intake: former substance use type: does not use Exam Const General: cooperative, healthy appearing and no acute distress HENMT Head: normal to inspection Face and sinus: normal facial exam Eyes General: appearance normal, both eyes and all related structures Neck Neck: normal visual inspection Chest Chest: normal inspection of the chest and no tenderness Resp Effort & Inspection: normal respiratory effort and able to speak in complete sentences Auscultation: clear to auscultation bilaterally Cardio Rate: regular rate Rhythm: regular rhythm GI Inspection: normal to inspection and obesity Palpation: soft, not firm, not rigid and nontender Auscultation: normal bowel sounds Back/Spine/Pelvis Back: no CVA tenderness Thoracic/Lumbar Spine: thoracic and lumbar spine normal to inspection Skin General skin exam: no rashes or lesions noted Neuro General: alert, awake and oriented x3 Cognition: normal cognition Speech: speech normal Motor: muscle tone normal throughout Sensory Exam: no sensory deficits noted Extrem General: normal to inspection, full ROM, normal capillary refill, no calf tenderness bilaterally and edema Laterality: right (1+, chronic) Psych Appearance: grossly normal Mental Status: mental status grossly normal Speech and Movement: speech and movement normal Affect: normal affect Course Vital Signs Temperature 98.1 F 08/06/18 08:13 Pulse 71 08/06/18 08:13 Respiratory Rate 18 08/06/18 08:13 Blood Pressure 136/76 08/06/18 08:13 Pulse Oximetry 96 08/06/18 08:13 Temperature 98.1 F 08/06/18 08:13 Temperature Source Skin 08/06/18 08:13 Pulse 71 08/06/18 08:13 Respiratory Rate 18 08/06/18 08:13 Respiratory Effort 08/06/18 08:13 Blood Pressure 136/76 08/06/18 08:13 Blood Pressure Position Supine 08/06/18 08:13 Pulse Oximetry 96 08/06/18 08:13 Oxygen Delivery Method Room Air 08/06/18 08:13 Oxygen Flow Rate 0 08/06/18 08:13 Pain Level 3 08/06/18 08:13
[2018-08-06 08:33] LABS: Abs Immature Grans 0.01 k/cumm (0.0-0.09); Absolute Basophil Count 0.03 k/cumm (0.0-0.2); Absolute Eosinophil Count 0.29 k/cumm (0.0-0.7); Absolute Lymphocyte Count 2.08 k/cumm (1.2-3.4); Absolute Monocyte Count 0.71 k/cumm (0.11-0.7); Absolute Neutrophil Count 4.26 k/cumm (1.2-6.7); Basophils % 0.4; Eosinophils % 3.9; HCT 39.7 % (40.0-50.0); HGB 13.2 g/dL (13.5-17.5); Immature Grans % 0.1; Lymphocytes % 28.2; Mean Corp. HGB Concentration 33.2 g/dL (32.0-36.0); Mean Corpuscular Hemoglobin 30.7 pg (27.0-33.0); Mean Corpuscular Volume 92.3 fL (80-95); Monocytes % 9.6; Neutrophils % 57.8; Platelet Count 166 x1000/uL (130-400); RBC Distribution Width 13.2 % (11.8-14.1); White Blood Cell Count 7.38 k/cumm (4.4-10.8)
[2018-08-06 08:48] LABS: ALT 36 U/L (12-78); AST 18 U/L (15-37); Albumin 3.4 g/dL (3.4-5.0); Alkaline Phosphatase 140 U/L (46-116); BUN 24 mg/dL (7-18); Bilirubin, Total 0.4 mg/dL (0.2-1.0); CREATININE 1.03 mg/dL (0.70-1.30); Calcium 8.7 mg/dL (8.5-10.1); Chloride 102 mmol/L (98-107); Glucose 220 mg/dL (70-100); Magnesium 1.7 mg/dL (1.8-2.4); Potassium 4.5 mmol/L (3.5-5.1); Sodium 140 mmol/L (136-145)
[2018-08-06 08:50] LABS: Troponin I < 0.02 ng/mL (0.00-0.06)
[2018-08-06] MEDS: MAGNESIUM SULFATE 1 GM/100 ML BAG IVPB (09:18)
--- NOTE | 2018-08-06 10:01 | DI.VRAD_ITS ---
EXAM: XR Chest, 2 Views EXAM DATE/TIME: 08/06/2018 8:26 AM CLINICAL HISTORY: 72 years old, male; Pain; Chest pain; Type not specified; Patient HX: Rule out acute process; Additional info: Concern about widened mediastinum TECHNIQUE: XR of the chest, 2 views. COMPARISON: CR CHEST 2 VIEWS PA,LAT 08/25/2017 3:05 PM FINDINGS: Lungs: Unremarkable. No consolidation. Pleural space: Unremarkable. No pleural effusion. No pneumothorax. Heart/Mediastinum: Mediastinum stable from previous examination. If there is concern for aortic pathology, recommend enhanced CT examination. Vasculature: Aortic ectasia. Bones/joints: Unremarkable. IMPRESSION: Mediastinum stable from previous examination. If there is concern for aortic pathology, recommend enhanced CT examination. Dictated and Authenticated by: Keila Lewis MD. Ordering:NOHEMY Howe MD
[2018-08-06 12:13] LABS: Troponin I < 0.02 ng/mL (0.00-0.06)
[2018-08-06] MEDS: Aspirin 325 MG TAB PO (13:17)
--- NOTE | 2018-08-06 13:49 | NUR.NOTE ---
1030 BP a 132/86- L arm, 157/93- L thigh, 150/76- RA. Nursing Note:
[2018-08-06 16:55] LABS: Troponin I < 0.02 ng/mL (0.00-0.06)
== END 2018-08-06 16:49 | disposition short-term general hospital (02) ==
PROVIDERS: Emergency Provider Physician Assistant; PCP Nurse Practitioner Family
DX: R07.9 Chest pain, unspecified (principal); E83.42 Hypomagnesemia; M54.6 Pain in thoracic spine; I48.91 Unspecified atrial fibrillation; I25.10 Atherosclerotic heart disease of native coronary artery without angina pectoris; E11.9 Type 2 diabetes mellitus without complications; Z79.84 Long term (current) use of oral hypoglycemic drugs; I10 Essential (primary) hypertension
CPT/HCPCS: 36415; 80053; 93005; 96365; 99285; 71046; 83735; 84484; 85025; 93010; J3475

== ENCOUNTER 2018-12-21 20:58 | Outpatient (REF) | payer MEDICARE, SELFPAY ==
[2018-12-21 20:43] LABS: Anion Gap 8.2 mmol/L (3-11); BUN 23 mg/dL (7-18); CO2 28.8 mmol/L (21.0-32.0); CREATININE 0.87 mg/dL (0.70-1.30); Calcium 8.9 mg/dL (8.5-10.1); Chloride 101 mmol/L (98-107); Glucose 158 mg/dL (70-100); Potassium 4.8 mmol/L (3.5-5.1); Sodium 138 mmol/L (136-145)
== END 2018-12-21 21:18 ==
LOC: NCHCN 20:58
PROVIDERS: PCP Nurse Practitioner Family; Visit Provider Nurse Practitioner Family
DX: I10 Essential (primary) hypertension (principal)
CPT/HCPCS: 80048

== ENCOUNTER 2019-04-27 22:43 | Outpatient (REF) | payer MEDICARE, SELFPAY ==
[2019-04-27 22:27] LABS: Uric Acid 6.3 mg/dL (3.5-7.2)
== END 2019-04-27 23:03 ==
LOC: NCHCN 22:43
PROVIDERS: PCP Nurse Practitioner Family; Visit Provider Nurse Practitioner Family
DX: E11.40 Type 2 diabetes mellitus with diabetic neuropathy, unspecified (principal); R60.9 Edema, unspecified
CPT/HCPCS: 84550

== ENCOUNTER 2019-09-15 10:44 | Outpatient (REF) | payer OTHER, SELFPAY ==
[2019-09-15 18:58] LABS: Anion Gap 11.7 mmol/L (3-11); BUN 30 mg/dL (7-18); CO2 28.3 mmol/L (21.0-32.0); CREATININE 1.28 mg/dL (0.70-1.30); Calcium 8.9 mg/dL (8.5-10.1); Chloride 97 mmol/L (98-107); Estimated GFR 54.94 (mL/min/1.73m2); Glucose 191 mg/dL (74-106); Potassium 4.5 mmol/L (3.5-5.1); Sodium 137 mmol/L (136-145)
== END 2019-09-15 11:04 ==
LOC: LBN 10:44
PROVIDERS: PCP Nurse Practitioner Family; Visit Provider Nurse Practitioner Family
DX: I48.91 Unspecified atrial fibrillation (principal); I50.33 Acute on chronic diastolic (congestive) heart failure
CPT/HCPCS: 80048

== ENCOUNTER 2019-09-21 09:44 | Outpatient (REF) | payer OTHER, SELFPAY ==
[2019-09-21 20:06] LABS: Anion Gap 10.4 mmol/L (3-11); BUN 44 mg/dL (7-18); CO2 28.6 mmol/L (21.0-32.0); CREATININE 1.69 mg/dL (0.70-1.30); Calcium 8.4 mg/dL (8.5-10.1); Chloride 99 mmol/L (98-107); Estimated GFR 39.87 (mL/min/1.73m2); Glucose 223 mg/dL (74-106); NT-proBNP 833 pg/mL (<300); Potassium 4.2 mmol/L (3.5-5.1); Sodium 138 mmol/L (136-145)
== END 2019-09-21 10:04 ==
LOC: NCHCN 09:44
PROVIDERS: PCP Nurse Practitioner Family; Visit Provider Physician Assistant Medical
DX: I50.9 Heart failure, unspecified (principal)
CPT/HCPCS: 80048; 83880

== ENCOUNTER 2019-09-28 10:08 | Outpatient (REF) | payer OTHER, SELFPAY ==
[2019-09-28 19:43] LABS: BUN 31 mg/dL (7-18); CREATININE 1.32 mg/dL (0.70-1.30); Calcium 8.7 mg/dL (8.5-10.1); Chloride 102 mmol/L (98-107); Estimated GFR 53.02 (mL/min/1.73m2); Glucose 183 mg/dL (74-106); NT-proBNP 1444 pg/mL (<300); Potassium 5.2 mmol/L (3.5-5.1); Sodium 141 mmol/L (136-145)
== END 2019-09-28 10:28 ==
LOC: NCHCN 10:08
PROVIDERS: Physician Assistant Medical; PCP Nurse Practitioner Family; Visit Provider Nurse Practitioner Family
DX: I50.9 Heart failure, unspecified (principal)
CPT/HCPCS: 80048; 83880

== ENCOUNTER 2019-10-02 15:54 | Outpatient (REF) | payer OTHER, SELFPAY ==
[2019-10-02 19:39] LABS: Anion Gap 11.2 mmol/L (3-11); BUN 37 mg/dL (7-18); CO2 26.8 mmol/L (21.0-32.0); Calcium 8.4 mg/dL (8.5-10.1); Chloride 100 mmol/L (98-107); Estimated GFR 49.54 (mL/min/1.73m2); Glucose 203 mg/dL (74-106); NT-proBNP 782 pg/mL (<300); Potassium 4.3 mmol/L (3.5-5.1); Sodium 138 mmol/L (136-145)
== END 2019-10-02 16:14 ==
LOC: NCHCN 15:54
PROVIDERS: PCP Nurse Practitioner Family; Visit Provider Nurse Practitioner Family
DX: I50.9 Heart failure, unspecified (principal); R60.9 Edema, unspecified; I48.91 Unspecified atrial fibrillation; E66.01 Morbid (severe) obesity due to excess calories
CPT/HCPCS: 80048; 83880

== ENCOUNTER 2019-10-03 08:35 | Outpatient (CLI) | payer OTHER, SELFPAY | END 2019-10-03 08:55 | PROVIDERS: PCP Nurse Practitioner Family; Visit Provider Internal Medicine Cardiovascular Disease | DX: I25.10 Atherosclerotic heart disease of native coronary artery without angina pectoris (principal); I48.91 Unspecified atrial fibrillation; I10 Essential (primary) hypertension; E11.9 Type 2 diabetes mellitus without complications; Z79.4 Long term (current) use of insulin | CPT/HCPCS: 99204; 99215; 93005; 93010 ==

== ENCOUNTER 2019-11-16 09:46 | Outpatient (REF) | payer OTHER, SELFPAY ==
[2019-11-16 19:20] LABS: Anion Gap 8.4 mmol/L (3-11); BUN 26 mg/dL (7-18); CO2 29.6 mmol/L (21.0-32.0); CREATININE 1.22 mg/dL (0.70-1.30); Calcium 8.9 mg/dL (8.5-10.1); Chloride 100 mmol/L (98-107); Estimated GFR 58.07 (mL/min/1.73m2); Glucose 172 mg/dL (74-106); NT-proBNP 479 pg/mL (<300); Potassium 4.6 mmol/L (3.5-5.1); Sodium 138 mmol/L (136-145)
== END 2019-11-16 10:06 ==
LOC: NCHCN 09:46
PROVIDERS: PCP Nurse Practitioner Family; Visit Provider Nurse Practitioner Family
DX: I50.9 Heart failure, unspecified (principal); I48.91 Unspecified atrial fibrillation
CPT/HCPCS: 80048; 83880

== ENCOUNTER 2020-01-01 11:00 | Outpatient (REF) | payer OTHER, SELFPAY ==
[2020-01-01 19:39] LABS: Abs Immature Grans 0.03 k/cumm (0.0-0.09); Absolute Basophil Count 0.01 k/cumm (0.0-0.2); Absolute Eosinophil Count 0.36 k/cumm (0.0-0.7); Absolute Lymphocyte Count 1.67 k/cumm (1.2-3.4); Absolute Monocyte Count 0.71 k/cumm (0.11-0.7); Absolute Neutrophil Count 4.47 k/cumm (1.2-6.7); Basophils % 0.1; HCT 36.6 % (40.0-50.0); HGB 11.7 g/dL (13.5-17.5); Immature Grans % 0.4 %; Mean Corpuscular Hemoglobin 30.3 pg (27.0-33.0); Mean Corpuscular Volume 94.8 fL (80-95); Mean Platelet Volume 10.8 fL (8.0-11.0); Monocytes % 9.8; Neutrophils % 61.7; Platelet Count 201 x1000/uL (130-400); RBC 3.86 m/cumm (4.50-6.00); RBC Distribution Width 15.3 % (11.8-14.1); White Blood Cell Count 7.25 k/cumm (4.4-10.8)
[2020-01-01 19:42] LABS: Bacteria Few HPF (Negative); Casts Negative LPF (Negative); Crystals Negative HPF (Negative); Epithelial Cells Negative HPF (Negative); Mucus Negative (Negative); Other Cells Few Renal (Negative); RBC 20-50 HPF (0-2)
[2020-01-01 19:43] LABS: C & S Indicated? C&S Done As Ordered
[2020-01-01 19:48] LABS: BUN 22 mg/dL (7-18); CREATININE 1.37 mg/dL (0.70-1.30); Calcium 8.8 mg/dL (8.5-10.1); Chloride 103 mmol/L (98-107); Estimated GFR 50.66 (mL/min/1.73m2); Glucose 188 mg/dL (74-106); HDL Cholesterol 40 mg/dL (40-60); LDL CHOLESTEROL 59 mg/dL (<100); Potassium 4.8 mmol/L (3.5-5.1); Sodium 141 mmol/L (136-145)
[2020-01-01 20:07] LABS: Uric Acid 5.2 mg/dL (3.5-7.2)
== END 2020-01-01 11:20 ==
LOC: NCHCN 11:00
PROVIDERS: PCP Nurse Practitioner Family; Visit Provider Nurse Practitioner Family
DX: I10 Essential (primary) hypertension (principal); I25.10 Atherosclerotic heart disease of native coronary artery without angina pectoris; M54.9 Dorsalgia, unspecified; E78.5 Hyperlipidemia, unspecified; M10.9 Gout, unspecified
CPT/HCPCS: 80048; 83721; 81015; 83718; 84550; 85025; 87086

== ENCOUNTER → 2020-04-08 10:26 | Outpatient (BNVA) | payer OTHER, SELFPAY | PROVIDERS: PCP Nurse Practitioner Family; Referring Provider Nurse Practitioner Family; Visit Provider Internal Medicine Cardiovascular Disease | DX: I48.91 Unspecified atrial fibrillation (principal); I25.10 Atherosclerotic heart disease of native coronary artery without angina pectoris; E11.9 Type 2 diabetes mellitus without complications; I50.9 Heart failure, unspecified; I11.0 Hypertensive heart disease with heart failure; Z79.4 Long term (current) use of insulin | CPT/HCPCS: 99214 ==

== ENCOUNTER 2020-04-29 18:17 | Outpatient (REF) | payer OTHER, SELFPAY ==
[2020-04-29 20:12] LABS: Anion Gap 8.3 mmol/L (3-11); BUN 42 mg/dL (7-18); CO2 28.7 mmol/L (21.0-32.0); CREATININE 1.67 mg/dL (0.70-1.30); Calcium 8.8 mg/dL (8.5-10.1); Chloride 100 mmol/L (98-107); Estimated GFR 40.31 (mL/min/1.73m2); Glucose 198 mg/dL (74-106); Potassium 4.6 mmol/L (3.5-5.1); Sodium 137 mmol/L (136-145)
== END 2020-04-29 18:37 ==
LOC: NCHCN 18:17
PROVIDERS: PCP Nurse Practitioner Family; Visit Provider Nurse Practitioner Family
DX: I10 Essential (primary) hypertension (principal); E11.9 Type 2 diabetes mellitus without complications; R60.0 Localized edema; I50.9 Heart failure, unspecified; M48.00 Spinal stenosis, site unspecified
CPT/HCPCS: 80048

== ENCOUNTER 2020-06-12 10:56 | Outpatient (REF) | payer OTHER, SELFPAY ==
[2020-06-12 20:33] LABS: Calculated LDL 76 mg/dL (<100); Cholesterol 164 mg/dL (<200); HDL Cholesterol 43 mg/dL (40-60); Triglyceride 225 mg/dL (<150)
== END 2020-06-12 11:16 ==
LOC: NCHCN 10:56
PROVIDERS: PCP Nurse Practitioner Family; Visit Provider Nurse Practitioner Family
DX: E78.5 Hyperlipidemia, unspecified (principal)
CPT/HCPCS: 80061

== ENCOUNTER 2020-09-16 14:36 | Outpatient (REF) | payer OTHER, SELFPAY ==
[2020-09-16 15:27] LABS: HCT 36.7 % (40.0-50.0); HGB 11.8 g/dL (13.5-17.5); MCH 31.1 pg (27.0-33.0); MCHC 32.2 % (32.0-36.0); MCV 96.6 fL (80-95); MPV 10.5 fL (8.0-11.0); Platelet Count 202 10^3/uL (130-400); RDW 14.6 % (11.8-14.1); RDW-SD 51.9 fL; WBC 7.95 10^3/uL (4.4-10.8)
[2020-09-16 15:29] LABS: Anion Gap 9.8 mmol/L (3-11); BUN 33 mg/dL (7-18); CO2 27.2 mmol/L (21.0-32.0); CREATININE 1.5 mg/dL (0.70-1.30); Calcium 8.7 mg/dL (8.5-10.1); Chloride 102 mmol/L (98-107); Estimated GFR 45.62 (mL/min/1.73m2); Glucose 192 mg/dL (74-106); Potassium 4.5 mmol/L (3.5-5.1); Sodium 139 mmol/L (136-145)
[2020-09-16 16:05] LABS: Hemoglobin A1C 8.1 % (<5.7)
== END 2020-09-16 14:37 | disposition home or self-care (01) ==
LOC: NCHCN 14:36
PROVIDERS: PCP Nurse Practitioner Family; Visit Provider Nurse Practitioner Family
DX: N28.89 Other specified disorders of kidney and ureter (principal); R89.8 Other abnormal findings in specimens from other organs, systems and tissues; R10.9 Unspecified abdominal pain; E11.9 Type 2 diabetes mellitus without complications
CPT/HCPCS: 80048; 85027; 83036

== ENCOUNTER 2020-10-03 09:09 | Outpatient (REF) | payer OTHER, SELFPAY ==
[2020-10-03 16:35] LABS: Iron 54 ug/dL (65-175); Total Iron Binding Capacity 307 ug/dL (250-450); Transferrin Sat 18 % (20-55)
[2020-10-03 17:02] LABS: Ferritin 65 ng/mL (26-388); Folate 15.8 ng/mL (8.6-20.0); Vitamin B12 995 pg/mL (193-986)
== END 2020-10-03 09:10 | disposition home or self-care (01) ==
LOC: NCHCN 09:09
PROVIDERS: PCP Nurse Practitioner Family; Visit Provider Nurse Practitioner Family
DX: R53.83 Other fatigue (principal); I48.91 Unspecified atrial fibrillation; I50.9 Heart failure, unspecified; E66.09 Other obesity due to excess calories
CPT/HCPCS: 82306; 82607; 82728; 82746; 83540; 83550

== ENCOUNTER → 2020-10-14 09:19 | Outpatient (BNVA) | payer OTHER, SELFPAY | PROVIDERS: PCP Nurse Practitioner Family; Referring Provider Nurse Practitioner Family; Visit Provider Internal Medicine Cardiovascular Disease | DX: I48.0 Paroxysmal atrial fibrillation (principal); I25.10 Atherosclerotic heart disease of native coronary artery without angina pectoris; I11.0 Hypertensive heart disease with heart failure; E11.9 Type 2 diabetes mellitus without complications; I50.9 Heart failure, unspecified; G47.33 Obstructive sleep apnea (adult) (pediatric) | CPT/HCPCS: 99214 ==

== ENCOUNTER 2020-10-31 13:29 | Outpatient (CLI) | payer OTHER, SELFPAY ==
--- NOTE | 2020-10-31 11:15 | DI.RAD_ITS ---
EXAM: XR KNEE LT 3V AP,LAT,ERICK CLINICAL HISTORY: BILAT KNEE PAIN. TECHNIQUE: 2D digital imaging was performed. COMPARISON: CR XR KNEE RT 3V AP,LAT,ERICK from 10/31/2020 FINDINGS: BONES: Total in the prosthesis. No acute fracture is present. No bony destructive lesion is seen. JOINTS: The knee is normally aligned. No joint effusion is seen. Patella not optimally profiled. SOFT TISSUE: Small calcification in the suprapatellar region. IMPRESSION: Unremarkable knee prosthesis. DATA REPOSITORY: RADIATION DOSE DELIVERED:
--- NOTE | 2020-10-31 11:15 | DI.RAD_ITS ---
EXAM: XR KNEE RT 3V AP,LAT,ERICK CLINICAL HISTORY: BILAT KNEE PAIN. TECHNIQUE: 2D digital imaging was performed. COMPARISON: No exams were available for comparison FINDINGS: BONES: There is a total knee prosthesis. There is a long stem tibial component. There are no surrou nding bony lucencies. No acute fracture is present. No bony destructive lesion is seen. JOINTS: The knee is normally aligned. No joint effusion is seen. The patella femoral joint is not wel l profiled. SOFT TISSUE: Normal. IMPRESSION: Total knee prosthesis. No acute abnormality. DATA REPOSITORY: RADIATION DOSE DELIVERED:
--- NOTE | 2020-10-31 11:15 | DI.RAD_ITS ---
EXAM: XR PELVIS AP CLINICAL HISTORY: BILAT KNEE PAIN. TECHNIQUE: 2D digital imaging was performed. COMPARISON: No exams were available for comparison FINDINGS: BONES: No acute fracture is present. No bony destructive lesion is seen. Mild enthesophytes are seen at the greater trochanters. JOINTS: No dislocation present. There is mild right hip joint space narrowing. There is moderate lef t hip joint space narrowing. There is mild acetabular spurring. SOFT TISSUE: A right ureteral stent is seen with pigtail projecting in the right side of the bladder. IMPRESSION: [id number] degenerative changes of the hip joints, left greater than right. DATA REPOSITORY: RADIATION DOSE DELIVERED:
== END 2020-10-31 13:30 | disposition home or self-care (01) ==
LOC: DIORS 13:30
PROVIDERS: PCP Nurse Practitioner Family; Referring Provider Nurse Practitioner Family; Visit Provider Student in an Organized Health Care Education/Training Program
DX: M16.0 Bilateral primary osteoarthritis of hip (principal); M25.561 Pain in right knee; M25.562 Pain in left knee; Z96.653 Presence of artificial knee joint, bilateral; M70.62 Trochanteric bursitis, left hip; M70.61 Trochanteric bursitis, right hip; R53.1 Weakness; Z85.51 Personal history of malignant neoplasm of bladder
CPT/HCPCS: 73562; 99214; 72170

== ENCOUNTER → 2020-11-14 11:24 | Outpatient (BNVA) | payer OTHER, SELFPAY | PROVIDERS: PCP Nurse Practitioner Family; Referring Provider Nurse Practitioner Family; Visit Provider Student in an Organized Health Care Education/Training Program | DX: M48.062 Spinal stenosis, lumbar region with neurogenic claudication (principal); Z96.653 Presence of artificial knee joint, bilateral ==

== ENCOUNTER 2020-12-04 08:50 | Outpatient (REF) | payer OTHER, SELFPAY ==
[2020-12-05 15:41] LABS: COVID-19 RT-PCR UVMMC Result Negative (Negative)
== END 2020-12-04 08:51 | disposition home or self-care (01) ==
LOC: NCHCN 08:50
PROVIDERS: PCP Nurse Practitioner Family; Visit Provider Nurse Practitioner Family
DX: Z20.822 Contact with and (suspected) exposure to COVID-19 (principal); Z01.818 Encounter for other preprocedural examination
CPT/HCPCS: U0003

== ENCOUNTER 2020-12-09 15:46 | Outpatient (REF) | payer OTHER, SELFPAY ==
[2020-12-10 13:25] LABS: COVID-19 RT-PCR UVMMC Result Negative (Negative)
== END 2020-12-09 15:47 | disposition home or self-care (01) ==
LOC: NCHCN 15:46
PROVIDERS: PCP Nurse Practitioner Family; Visit Provider Nurse Practitioner Family
DX: Z20.822 Contact with and (suspected) exposure to COVID-19 (principal); Z01.818 Encounter for other preprocedural examination
CPT/HCPCS: U0003

== ENCOUNTER 2021-01-02 15:34 | Outpatient (REF) | payer OTHER, SELFPAY ==
[2021-01-02 19:42] LABS: Anion Gap 9.6 mmol/L (3-11); BUN 56 mg/dL (7-18); CO2 27.4 mmol/L (21.0-32.0); Calcium 8.9 mg/dL (8.5-10.1); Chloride 101 mmol/L (98-107); Estimated GFR 15.57 (mL/min/1.73m2); Glucose 147 mg/dL (74-106); Potassium 5.6 mmol/L (3.5-5.1); Sodium 138 mmol/L (136-145)
[2021-01-02 19:50] LABS: CREATININE 3.8 mg/dL (0.70-1.30)
== END 2021-01-02 15:35 | disposition home or self-care (01) ==
LOC: NCHCN 15:34
PROVIDERS: PCP Nurse Practitioner Family; Visit Provider Family Medicine
DX: I95.1 Orthostatic hypotension (principal); R42 Dizziness and giddiness
CPT/HCPCS: 80048

== ENCOUNTER 2021-01-08 16:44 | Outpatient (REF) | payer OTHER, SELFPAY ==
[2021-01-08 14:07] LABS: BUN 27 mg/dL (7-18); CREATININE 2.1 mg/dL (0.70-1.30); Calcium 8.9 mg/dL (8.5-10.1); Chloride 105 mmol/L (98-107); Estimated GFR 30.86 (mL/min/1.73m2); Glucose 186 mg/dL (74-106); Potassium 5.2 mmol/L (3.5-5.1); Sodium 139 mmol/L (136-145)
== END 2021-01-08 16:45 | disposition home or self-care (01) ==
LOC: NCHCN 16:44
PROVIDERS: PCP Nurse Practitioner Family; Visit Provider Nurse Practitioner Family
DX: E87.5 Hyperkalemia (principal); N17.8 Other acute kidney failure
CPT/HCPCS: 80048

== ENCOUNTER 2021-02-05 10:09 | Outpatient (REF) | payer OTHER, SELFPAY ==
[2021-02-05 14:52] LABS: HCT 33.5 % (40.0-50.0); HGB 10.4 g/dL (13.5-17.5); MCH 29.1 pg (27.0-33.0); MCV 93.8 fL (80-95); MPV 10.2 fL (8.0-11.0); Platelet Count 228 10^3/uL (130-400); RBC 3.57 10^6/uL (4.36-5.78); RDW-SD 48.3 fL; WBC 6.55 10^3/uL (4.4-10.8)
[2021-02-05 14:54] LABS: Anion Gap 9.3 mmol/L (3-11); BUN 30 mg/dL (7-18); CO2 27.7 mmol/L (21.0-32.0); Calcium 8.8 mg/dL (8.5-10.1); Chloride 102 mmol/L (98-107); Estimated GFR 32.65 (mL/min/1.73m2); Glucose 195 mg/dL (74-106); Sodium 139 mmol/L (136-145)
== END 2021-02-05 10:10 | disposition home or self-care (01) ==
LOC: NCHCN 10:09
PROVIDERS: PCP Nurse Practitioner Family; Visit Provider Nurse Practitioner Family
DX: D64.9 Anemia, unspecified (principal); I48.91 Unspecified atrial fibrillation; I10 Essential (primary) hypertension
CPT/HCPCS: 80048; 85027

== ENCOUNTER 2021-03-10 11:54 | Outpatient (REF) | payer OTHER, SELFPAY ==
[2021-03-10 15:29] LABS: Anion Gap 6.7 mmol/L (3-11); BUN 33 mg/dL (7-18); CO2 28.3 mmol/L (21.0-32.0); CREATININE 1.7 mg/dL (0.70-1.30); Calcium 8.8 mg/dL (8.5-10.1); Chloride 105 mmol/L (98-107); Estimated GFR 39.38 (mL/min/1.73m2); Glucose 193 mg/dL (74-106); Potassium 5.3 mmol/L (3.5-5.1); Sodium 140 mmol/L (136-145)
[2021-03-10 15:33] LABS: Bacteria Rare HPF (Negative); C & S Indicated? C&S Done As Ordered; Casts Negative LPF (Negative); Crystals Negative HPF (Negative); Epithelial Cells Few HPF (Negative); Mucus Negative (Negative)
== END 2021-03-10 11:55 | disposition home or self-care (01) ==
LOC: NCHCN 11:54
PROVIDERS: PCP Nurse Practitioner Family; Visit Provider Nurse Practitioner Family
DX: R30.0 Dysuria (principal); I10 Essential (primary) hypertension
CPT/HCPCS: 80048; 81015; 87086

== ENCOUNTER 2021-03-14 14:29 | Outpatient (REF) | payer OTHER, SELFPAY ==
[2021-03-14 20:11] LABS: Bilirubin Negative (Negative); Blood Negative (Negative); Clarity Clear (Clear); Glucose Negative (Negative); Ketones Negative (Negative); Leukocyte Esterase Negative (Negative); Nitrite Negative (Negative); Urobilinogen 0.2 EU/dL (Up TO 0.2)
== END 2021-03-14 14:30 | disposition home or self-care (01) ==
LOC: NCHCN 14:29
PROVIDERS: PCP Nurse Practitioner Family; Visit Provider Nurse Practitioner Family
DX: R30.0 Dysuria (principal)
CPT/HCPCS: 81003

== ENCOUNTER → 2021-04-07 08:57 | Outpatient (BNVA) | payer OTHER, SELFPAY | PROVIDERS: PCP Nurse Practitioner Family; Referring Provider Nurse Practitioner Family; Visit Provider Internal Medicine Cardiovascular Disease | DX: I48.91 Unspecified atrial fibrillation (principal); I10 Essential (primary) hypertension; I25.10 Atherosclerotic heart disease of native coronary artery without angina pectoris; E11.9 Type 2 diabetes mellitus without complications; Z98.890 Other specified postprocedural states | CPT/HCPCS: 99213 ==

== ENCOUNTER 2021-06-09 12:01 | Emergency (ER) | payer MEDICARE, SELFPAY ==
--- NOTE | 2021-06-09 12:30 | DI.RAD_ITS ---
Exam(s) XR PORTABLE CHEST AP EXAM: XR PORTABLE CHEST AP CLINICAL HISTORY: Covid positive, productive cough, SOB. TECHNIQUE: 2D digital imaging was performed. COMPARISON: CR XR CHEST 2V PA LATERAL from 08/06/2018 FINDINGS: Chest leads in place.. Heart size is upper normal. The mediastinum is not widened. There is infiltrate in the left lower l obe mild increased markings in the right lung base also. No large pleural effusions evident. No pneumothorax. IMPRESSION: Left lower lobe infiltrate. Milder right lung base infiltrate. DATA REPOSITORY: RADIATION DOSE DELIVERED: All CT scans at this facility use at least one of these dose optimization techniques: automated exposure control; mA and/or kV adjustment per patient size (includes targeted e xams where dose is matched to clinical indication); or iterative reconstruction.
--- NOTE | 2021-06-09 12:30 | RT.EKG_ITS ---
APPROVED REPORT Exam: Resting ECG Reason for Exam: sob Patient Location: E HR:75 bpm ECG Measurements Heart Rate 75 AXIS [place] 66 P -84 QRSd 164 QRS 110 QT 447 T -55 QTc 499 Conclusion Sinus or ectopic atrial rhythm...P axis (-45,135) Nonspecific intraventricular conduction delay...QRSd >115mS, not LBBB/RBBB ST elevation secondary to IVCD...Multiple VCG criteria I have reviewed and interpreted ECG and agree with software generated interpretation.
--- NOTE | 2021-06-09 12:46 | ED.GENADUL_ITS ---
Discharge Plan Disposition Patient Disposition: HOME Condition: Stable Discharge Details Clinical Impression: Pneumonia due to COVID-19 virus Primary Care Provider: Lizett Sanchez ED Provider: Padmini Jules Home Meds and New Rx's Prescriptions: New doxycycline hyclate 100 mg capsule 100 mg PO BID 10 Days Qty: 20 RF: 0 prednisone 20 mg tablet 60 mg PO DAILY 5 Days Qty: 15 RF: 0 No Action magnesium oxide 250 mg magnesium tablet 250 mg PO TID RF: 0 indomethacin 50 mg capsule 50 mg PO BID PRNRF: 0 allopurinol 100 mg tablet 200 mg PO BID Qty: 0 RF: 0 tramadol 50 mg tablet 50 mg PO Q8H PRN (Reason: pain) Qty: 21 RF: 0 diclofenac sodium 1 % gel 2 gm TP QID RF: 0 pantoprazole 20 mg tablet,delayed release (DR/EC) 20 mg PO DAILY RF: 0 amiodarone 200 mg tablet 200 mg PO DAILY RF: 0 metoprolol succinate [Toprol XL] 25 mg tablet extended release 24 hr 25 mg PO DAILY RF: 0 aspirin [Adult Aspirin Regimen] 81 mg tablet,delayed release (DR/EC) 81 mg PO DAILY RF: 0 Basaglar KwikPen U-100 Insulin 100 unit/mL (3 mL) insulin pen 32 unit SC QHS RF: 0 ferrous sulfate 325 mg (65 mg iron) tablet 325 mg PO DAILY RF: 0 cholecalciferol (vitamin D3) 25 mcg (1,000 unit) tablet 25 mcg PO DAILY RF: 0 triamcinolone acetonide 0.1 % cream 1 applic topical BID PRNRF: 0 furosemide 40 mg tablet 40 mg PO DAILY RF: 0 tamsulosin 0.4 mg capsule 0.4 mg PO DAILY RF: 0 polyethylene glycol 3350 17 gram/dose powder 8.5 g PO DAILY PRNRF: 0 atorvastatin [Lipitor] 40 MG tablet 40 mg PO DAILY RF: 0 sennosides-docusate sodium [Senokot-S] 1 EACH tablet 1 tab PO BID RF: 0 ibuprofen 800 MG tablet 800 mg PO PRN PRNRF: 0 diphenhydramine-acetaminophen [Acetaminophen PM] 1 EACH tablet 1 ea PO HS PRN PRN (Reason: Sleep) RF: 0 nitroglycerin [Nitrostat] 0.4 MG tablet, sublingual 0.4 mg Sublingual Q5 MIN PRN X3 PRNQty: 100 RF: 0 acetaminophen [Pain Relief (acetaminophen)] 500 MG tablet 1,000 mg PO Q4H PRN PRNQty: 0 RF: 0 finasteride 5 mg Tablet 5 mg PO DAILY RF: 0 Discharge Instructions Instructions: Droplet Precautions (ED), Pneumonia (ED), COVID-19 (Coronavirus Disease 2019) (ED) Additional Instructions: Please take the medications as directed. Start the antibiotic and steroid tomorrow. Use the albuterol 1 or 2 puffs every 4 hours as needed for wheezing and shortness of breath. Take zinc and vitamin D supplement. Use the pulse oximeter and return to the emergency department if consistent readings of less than 90% and or worsening symptom. Follow up with primary care provider in 3-5 days. Return to ED sooner if any worsening or concerns. Increase oral fluids. Please take Tylenol or Ibuprofen with food every 4-6 hours as needed for pain and swelling. Speak with your primary care provider about setting up for the antibody infusion in the infusion center. Please be aware that at this time I was not able to rule out a pulmonary embolism or blood clot in your lung. Please return to the emergency room for any fast heart rate, chest pain, worsening shortness of breath or any other above-mentioned concerns. Referrals: Lizett Sanchez [Primary Care Provider] - 3 days Discharge Data Discharge Date/Time-TO BE ENTERED AT DEPARTURE: 06/09/21 17:57 Medical Decision Making 75 year old male with a PMHx of DM, CAD, HTN, Hyperlipidemia, Renal Insufficien cy, GERD, Obesity, Obstructive Sleep Apnea presents to the ED after being referred here from his PCP after a positive Covid test today. He reports increased SOB, green, yellow productive cough, and pain across his back and down bilateral shoulders which began this am. He reports taking his am daily medications today.He took a 81 mg ASA this am. He denies any N/V/D. Temp, 99.1 upon arrival. 92%RA. Expiratory scattered wheezes noted throughout. He is vaccinated, last vaccination was in August. He reports his girlfriend who has been staying with him from [facility] has Covid and has been sick x 1 week. Covid work up ordered, D-dimer elevated at 773, WBC 13.63, Lactate 1.5, BUN 33, Cr 2.0, CRP 1.24, Pro- calcitonin less than 0.1. PCXR shows Bilateral lobe infiltrate Exam(s) XR PORTABLE CHEST AP EXAM: XR PORTABLE CHEST AP CLINICAL HISTORY: Covid positive, productive cough, SOB. TECHNIQUE: 2D digital imaging was performed. COMPARISON: CR XR CHEST 2V PA LATERAL from 08/06/2018 FINDINGS: Chest leads in place.. Heart size is upper normal. The mediastinum is not widened. There is infiltrate in the left lower lobe mild increased markings in the right lung base also. No large pleural effusions evident. No pneumothorax. IMPRESSION: Left lower lobe infiltrate. Milder right lung base infiltrate. CTA chest ordered due to age adjusted D-dimer being slightly elevated. 1620: Patient re-evaluation: Patient reports improvement in symptoms and improvement in SOB. He has largely maintained O2 sat from 88-92% on RA. I did discuss options between admission versus discharge home. At this time patient rather be discharged home pending CT chest to rule out PE. 1623: Spoke with DI and patient is very hesitant to recieve IV dye due to only having one kidney. patient returns to dept and I will speak with him again. Doxycycline 100 mg IV ordered. Plan will be to discharge patient on doxycycline, give albuterol inhaler, and prednisone 5 day stint and close follow-up with PCP regarding MAB infusion and further treatment. Patient was given Pulse oximeter to use at home with instructions which were reviewed with him. Instructed to return if consistent readings of less than 90%, chest pain, fast heart rate or worsening. I did discuss that we are unable to rule out PE at this time. HPI General Mode of arrival: ambulatory . Date/Time Provider Initiated Documentation: 06/09/21 12:10 . Limitations to Documentation: no limitations . Information obtained by: patient and old records reviewed . HPI Narrative: 75 year old male with a PMHx of DM, CAD, HTN, Hyperlipidemia, Renal Insufficiency, GERD, Obesity, Obstructive Sleep Apnea presents to the ED after being referred here from his PCP after a positive Covid test today. He reports increased SOB, green, yellow productive cough, and pain across his back and down bilateral shoulders which began this am. He reports taking his am daily medications today.He took a 81 mg ASA this am. He denies any N/V/D. Temp, 99.1 upon arrival. 92%RA. Expiratory scattered wheezes noted throughout. He is vaccinated, last vaccination was in August. He reports his girlfriend who has been staying with him from [facility] has Covid and has been sick x 1 week. Related Data Home Medications Medication Instructions Recorded Confirmed atorvastatin [Lipitor] 40 mg PO DAILY 09/05/15 06/09/21 sennosides-docusate sodium 1 tab PO BID 11/25/16 06/09/21 [Senokot-S] diphenhydramine-acetaminophen 1 ea PO HS PRN PRN 08/19/17 06/09/21 [Acetaminophen PM] acetaminophen [Pain Relief 1,000 mg PO Q4H PRN PRN #0 08/20/17 06/09/21 (acetaminophen)] nitroglycerin [Nitrostat] 0.4 mg SUBLINGUAL Q5 MIN PRN X3 08/20/17 06/09/21 PRN #100 tab ibuprofen 800 mg PO PRN PRN 08/25/17 06/09/21 finasteride 5 mg PO DAILY 08/06/18 06/09/21 diclofenac sodium 1 % topical gel 2 gm TP QID 09/27/19 06/09/21 pantoprazole 20 mg tablet,delayed 20 mg PO DAILY 09/27/19 06/09/21 release amiodarone 200 mg tablet 200 mg PO DAILY tab 10/03/19 06/09/21 indomethacin 50 mg capsule 50 mg PO BID PRN 10/03/19 06/09/21 magnesium oxide 250 mg PO TID tab 10/03/19 06/09/21 metoprolol succinate 25 mg 25 mg PO DAILY tab 10/03/19 06/09/21 tablet,extended release 24 hr tramadol 50 mg tablet 50 mg PO Q8H PRN #21 tab 10/31/20 06/09/21 aspirin 81 mg tablet,delayed 81 mg PO DAILY 11/13/20 06/09/21 release cholecalciferol (vitamin D3) 25 25 mcg PO DAILY 11/13/20 06/09/21 mcg (1,000 unit) tablet ferrous sulfate 325 mg (65 mg 325 mg PO DAILY 11/13/20 06/09/21 iron) tablet insulin glargine 100 unit/mL (3 32 unit SC QHS ml 04/21/21 11/15/21 mL) subcutaneous pen allopurinol 100 mg tablet 200 mg PO BID #0 tab 04/08/21 06/09/21 furosemide 40 mg tablet 40 mg PO DAILY tab 04/30/21 06/09/21 tamsulosin 0.4 mg capsule 0.4 mg PO DAILY 04/30/21 06/09/21 triamcinolone acetonide 0.1 % 1 applic TOPICAL BID PRN 04/30/21 06/09/21 topical cream polyethylene glycol 3350 17 8.5 g PO DAILY PRN 05/05/21 06/09/21 gram/dose oral powder doxycycline hyclate 100 mg PO BID 10 Days #20 cap 06/09/21 prednisone 60 mg PO DAILY 5 Days #15 tab 06/09/21 Previous Rx's Medication Instructions Recorded acetaminophen [Pain Relief 1,000 mg PO Q4H PRN PRN #0 08/20/17 (acetaminophen)] nitroglycerin [Nitrostat] 0.4 mg SUBLINGUAL Q5 MIN PRN X3 08/20/17 PRN #100 tab tramadol 50 mg tablet 50 mg PO Q8H PRN #21 tab 10/31/20 allopurinol 100 mg tablet 200 mg PO BID #0 tab 04/08/21 doxycycline hyclate 100 mg PO BID 10 Days #20 cap 06/09/21 prednisone 60 mg PO DAILY 5 Days #15 tab 06/09/21 Allergies Allergy/AdvReac Type Severity Reaction Status Date / Time meperidine [From Demerol] Allergy pedal edema Verified 06/09/21 13:27 General JACQUELINE: 2 Review of Systems All systems reviewed & are unremarkable except as noted in HPI and below Constitutional Constitutional: Reports as per HPI, Reports chills, Reports fatigue, Reports fever(s) and Denies headache(s) ENT Ears, Nose, Mouth, and Throat: Denies dizziness and Denies headache(s) Cardiovascular Cardiovascular: Reports as per HPI, Denies chest pain, Denies syncope, Denies rapid heart rate, Denies pedal edema, Denies leg edema, Reports radiating jaw, neck or arm pain (Back and bilateral arm), Denies palpitations, Reports dyspnea and Reports dyspnea on exertion Respiratory Respiratory: Reports as per HPI, Reports change in phlegm color, Reports chest congestion, Reports cough, Denies hemoptysis, Reports excessive phlegm production, Reports dyspnea and Reports dyspnea on exertion Comments: Recently tested positive for Covid Gastrointestinal Gastrointestinal: Denies abdominal pain, Denies hematochezia, Denies diarrhea, Denies nausea and Denies vomiting Genitourinary Genitourinary: Denies oliguria, Denies difficulty urinating and Denies dysuria Neurologic Neurologic: Denies confusion, Denies dizziness, Denies syncope, Denies headache(s), Denies lack of coordination, Denies restless legs and Denies seizure-like activity Psychiatric Psychiatric: Denies confusion Endocrine Endocrine: Reports fatigue and Denies palpitations [facility] Active Problem List Lumbar spinal stenosis (Acute) Trochanteric bursitis, right hip (Acute) Trochanteric bursitis, left hip (Acute) History of total bilateral knee replacement (Acute) Coronary artery disease (Chronic) Atrial fibrillation (Chronic) Medical History Bladder cancer Diabetes DJD (degenerative joint disease) GERD (gastroesophageal reflux disease) HTN (hypertension) Hyperlipemia Migraine Nephrolithiasis Obstructive sleep apnea Prinzmetal variant angina Rotator cuff impingement syndrome of left shoulder Shortness of breath Surgical History History of bladder surgery History of hernia repair History of knee replacement Social History Smoking/Tobacco Use Status: Former Tobacco Use Quit Date: 07/26/84 Tobacco: How many years used: 25 Smoking risk assessment performed?: Yes Alcohol Intake: former Drug use: Never Substance use type: does not use What type of physical activity do you participate in: none Do you feel safe at home: Yes Do you feel safe in your relationship?: Yes Exam Narrative Exam Narrative: Constitutional: Alert and oriented x3. Appears stated age. obese body habitus. Head: Normocephalic, no trauma. Eyes: Pupils PERRL, Red reflex noted, EOM's intact. Eyelids symmetrical without lesions, discharge, or swelling. ENT: Bilateral TM's WNL, External ear normal to inspection, no mastoid TTP, swelling, or erythema, Nasal turbinates WNL, no nasal discharge. Normal dentition, Posterior pharynx WNL, no exudate. Chest: RRR, Normal S1, S2, distal pulses intact. Resp: Bilateral expiratory wheezes scattered throughout all lung cagle. Abdomen: Soft, non-distended, Normoactive bowel sounds all 4 quads. Musculoskeletal: Normal gait, 5/5 strength to all four extremities. Skin: No suspicious rashes or lesions. Capillary refill less than 2 sec. Neurologic: Cranial nerves II-XII intact. Alert and oriented x 3. Motor: No deficits noted. Sensory: Intact bilaterally all 4 extremities. Reflexes: DTR's intact bilaterally.. Hematologic/Lymphatic: No ecchymosis, no lymphadenopathy.
[2021-06-09] MEDS: Lactated Ringers 500 ML IV (13:06)
[2021-06-09 13:09] LABS: Lactate 1.5 mmol/L (0.6-1.4)
[2021-06-09 13:10] LABS: Abs Immature Grans 0.04 10^3/uL (0.0-0.06); Absolute Basophil Count 0.03 10^3/uL (0.0-0.2); Absolute Eosinophil Count 0.16 10^3/uL (0.0-0.7); Absolute Lymphocyte Count 1.34 10^3/uL (1.2-3.4); Absolute Monocyte Count 1.06 10^3/uL (0.1-0.8); Basophils % 0.2; Eosinophils % 1.2; HCT 45.3 % (40.0-50.0); HGB 14.4 g/dL (13.5-17.5); Immature Grans % 0.3; Lymphocytes % 9.8; MCH 27.9 pg (27.0-33.0); MCHC 31.8 % (32.0-36.0); MCV 87.6 fL (80-95); MPV 9.6 fL (8.0-11.0); Monocytes % 7.8; Neutrophils % 80.7; Nucleated RBC 0 %; Platelet Count 146 10^3/uL (130-400); RBC 5.17 10^6/uL (4.36-5.78); RDW 14.3 % (11.8-14.1); RDW-SD 46.1 fL; WBC 13.63 10^3/uL (4.4-10.8)
[2021-06-09] MEDS: Acetaminophen 325 MG TAB 650 MG PO (13:12)
[2021-06-09] MEDS: Aspirin 81 MG CHEW 243 MG CH (13:14)
[2021-06-09] MEDS: Albuterol HFA 8 GM 60 PUFF INH IH (13:16)
[2021-06-09 13:17] VITALS: BP 158/74; PULSE 74; RESP 25; TEMP 37.3; O2SAT 92
[2021-06-09 13:40] LABS: ALT 31 U/L (16-63); AST 21 U/L (15-37); Alkaline Phosphatase 194 U/L (46-116); Anion Gap 9.1 mmol/L (3-11); BUN 33 mg/dL (7-18); Bilirubin, Total 0.8 mg/dL (0.2-1.0); C-Reactive Protein 1.24 mg/dL (0.0-0.3); CO2 31.9 mmol/L (21.0-32.0); Calcium 8.9 mg/dL (8.5-10.1); Chloride 103 mmol/L (98-107); Estimated GFR 32.65 (mL/min/1.73m2); Glucose 152 mg/dL (74-106); LDH 156 U/L (85-227); NT-proBNP 233 pg/mL (<300); Potassium 4.4 mmol/L (3.5-5.1); Sodium 144 mmol/L (136-145); Total Protein 8.6 g/dL (6.4-8.2); Troponin I < 0.05 ng/mL (<0.06)
[2021-06-09 14:01] LABS: Ferritin 120 ng/mL (26-388)
[2021-06-09 14:04] LABS: D-Dimer 773 ng/mlFEU (<500)
[2021-06-09 14:05] LABS: Procalcitonin < 0.1 ng/mL
--- NOTE | 2021-06-09 16:00 | RT.EKG_ITS ---
APPROVED REPORT Exam: Resting ECG Reason for Exam: repeat ekg Patient Location: E HR:72 bpm ECG Measurements Heart Rate 72 AXIS PA 86 P 0 QRSd 164 QRS -10 QT 458 T 119 QTc 502 Conclusion Sinus rhythm...normal P axis, V-rate 60- 99 Left bundle branch block...QRSd>120, broad/notched R ST elevation secondary to IVCD...Multiple VCG criteria No significant change
[2021-06-09] MEDS: predniSONE 20 MG TAB 60 MG PO (16:57)
[2021-06-09 16:59] LABS: Troponin I < 0.05 ng/mL (<0.06)
[2021-06-09] MEDS: DOXYCYCLINE 100 MG in Normal Saline 100 ML IVPB (17:00)
[2021-06-09 17:59] VITALS: BP 164/81; PULSE 73; RESP 19; TEMP 36.9; O2SAT 90
[2021-06-10 11:48] LABS: Magnesium 2.1 mg/dL (1.8-2.4)
== END 2021-06-09 17:57 | disposition home or self-care (01) ==
PROVIDERS: Emergency Provider Registered Nurse Emergency; PCP Nurse Practitioner Family
DX: U07.1 COVID-19 (principal); J12.82 Pneumonia due to coronavirus disease 2019; Z87.891 Personal history of nicotine dependence; R06.02 Shortness of breath; R05.8 Other specified cough; M54.9 Dorsalgia, unspecified; R79.1 Abnormal coagulation profile; E11.9 Type 2 diabetes mellitus without complications
CPT/HCPCS: 36410; 36415; 80053; 84145; 87040; 93005; 96361; 96365; 99284; 71045; 82728; 83605; 83615; 83735; 83880; 84484; 85025; 85379; 86140; 93010; J7512

== ENCOUNTER 2021-06-11 01:46 | Outpatient (CLI) | payer MEDICARE, SELFPAY ==
[2021-06-11 09:00] VITALS: BP 134/68; PULSE 92; TEMP 36.6; O2SAT 96
[2021-06-11 09:30] VITALS: BP 131/67; PULSE 57; TEMP 36.3; O2SAT 91
[2021-06-11 09:54] VITALS: BP 123/70; PULSE 59; RESP 20; TEMP 36.3; O2SAT 93
[2021-06-11 10:53] VITALS: BP 145/74; PULSE 57; RESP 20; TEMP 36.3; O2SAT 95
[2021-06-11 11:57] VITALS: BP 134/68; PULSE 92; TEMP 36.6; O2SAT 96
== END 2021-06-11 01:47 | disposition home or self-care (01) ==
LOC: INF 01:46
PROVIDERS: PCP Nurse Practitioner Family; Visit Provider Family Medicine
DX: U07.1 COVID-19 (principal)
CPT/HCPCS: 96365

== ENCOUNTER 2021-08-12 15:21 | Outpatient (REF) | payer MEDICARE, SELFPAY ==
[2021-08-12 13:57] LABS: ALT 27 U/L (16-63); AST 14 U/L (15-37); Albumin 3.6 g/dL (3.4-5.0); Alkaline Phosphatase 175 U/L (46-116); Anion Gap 11.3 mmol/L (3-11); BUN 36 mg/dL (7-18); Bilirubin, Total 0.8 mg/dL (0.2-1.0); CO2 25.7 mmol/L (21.0-32.0); Calcium 8.4 mg/dL (8.5-10.1); Calculated LDL 63 mg/dL (<100); Chloride 99 mmol/L (98-107); Cholesterol 182 mg/dL (<200); Estimated GFR 32.65 (mL/min/1.73m2); Glucose 274 mg/dL (74-106); HDL Cholesterol 41 mg/dL (40-60); Hemoglobin A1C 8.1 % (<5.7); Sodium 136 mmol/L (136-145); Total Protein 7.1 g/dL (6.4-8.2); Triglyceride 393 mg/dL (<150)
== END 2021-08-12 15:22 | disposition home or self-care (01) ==
LOC: NCHCN 15:21
PROVIDERS: PCP Nurse Practitioner Family; Visit Provider Nurse Practitioner Family
DX: E78.5 Hyperlipidemia, unspecified (principal); E11.9 Type 2 diabetes mellitus without complications; I10 Essential (primary) hypertension
CPT/HCPCS: 80053; 80061; 83036

== ENCOUNTER → 2021-10-03 08:38 | Outpatient (BNVA) | payer MEDICARE, SELFPAY | PROVIDERS: PCP Nurse Practitioner Family; Visit Provider Internal Medicine Cardiovascular Disease | DX: I48.91 Unspecified atrial fibrillation (principal); I25.10 Atherosclerotic heart disease of native coronary artery without angina pectoris; I10 Essential (primary) hypertension; G47.33 Obstructive sleep apnea (adult) (pediatric) | CPT/HCPCS: 99214; 99213 ==

== ENCOUNTER 2021-10-09 18:16 | Outpatient (REF) | payer MEDICARE, SELFPAY ==
[2021-10-09 13:39] LABS: Anion Gap 9.2 mmol/L (3-11); BUN 41 mg/dL (7-18); CO2 25.8 mmol/L (21.0-32.0); Calcium 8.7 mg/dL (8.5-10.1); Chloride 105 mmol/L (98-107); Estimated GFR 32.65 (mL/min/1.73m2); Glucose 170 mg/dL (74-106); Potassium 4.8 mmol/L (3.5-5.1); Sodium 140 mmol/L (136-145)
[2021-10-16 08:37] LABS: O-desmethyltramadol 28719 ng/mL (Cutoff:25); Tramadol 24549 ng/mL (Cutoff:25)
== END 2021-10-09 18:17 | disposition home or self-care (01) ==
LOC: NCHCN 18:16
PROVIDERS: PCP Nurse Practitioner Family; Visit Provider Nurse Practitioner Family
DX: M54.9 Dorsalgia, unspecified (principal); N28.9 Disorder of kidney and ureter, unspecified
CPT/HCPCS: 80048; 80373

== ENCOUNTER 2022-01-13 08:34 | Emergency (ER) | payer MEDICARE, SELFPAY ==
[2022-01-13 08:49] VITALS: BP 138/92; PULSE 65; RESP 20; TEMP 36.7; O2SAT 95
--- NOTE | 2022-01-13 09:30 | DI.RAD_ITS ---
Exam(s) XR HAND LT COMPLETE EXAM: XR HAND LT COMPLETE CLINICAL HISTORY: fall onto L hand, lacerations 2nd/3rd MCP. TECHNIQUE: 2D digital imaging was performed. Three views. COMPARISON: No exams were available for comparison FINDINGS: BONES: No acute fracture is present. No bony destructive lesion is seen. JOINTS: No dislocation present. Mild degenerative changes. SOFT TISSUE: Normal. No foreign body. IMPRESSION: Unremarkable radiographs of the left hand. DATA REPOSITORY: RADIATION DOSE DELIVERED:
--- NOTE | 2022-01-13 09:30 | DI.CT_ITS ---
Exam(s) CT HEAD CERV SPINE FACIAL WO EXAM: CT HEAD CERV SPINE FACIAL WO CLINICAL HISTORY: s/p head injury. TECHNIQUE: Imaging Protocol: Axial computed tomography images with coronal and sagittal reformatted images were created and reviewed COMPARISON: CT ABD PELVIS WO CONTRAST from 03/12/2010 FINDINGS: CT Head: Ventricles and Extra axial spaces: Normal in size and morphology for the patient's age. Hemorrhage: None. Cerebral parenchyma: Normal. Midline shift: None. Brainstem/Cerebellum: Normal. Calvarium: Normal. Visualized Paranasal sinuses/Mastoids: Mucous retention cyst floor right maxillary sinus. Minimal mu cosal thickening frontal and ethmoid sinuses. Soft Tissues: Unremarkable. CT Face: Facial Bones: Slight deformity of the nasal bones, acute versus old fracture.. Sinuses and Mastoids: Mucous retention floor of right maxillary sinus. Minimal ethmoid and frontal mucosal thickening. Globes, extraocular muscles, optic nerves and retrobulbar fat: Normal. Upper aerodigestive tract: Normal. Mandible and bilateral temporomandibular joints: Normal. Soft tissues: Normal. CT Cervical Spine: Bones: No acute fracture or subluxation. Degenerative disc changes greatest at C5-6. Facet degenera tive changes. Soft Tissues: Unremarkable. Lung Apices: Clear. IMPRESSION: 1. No acute intracranial process. 2. No acute fracture or subluxation in the cervical spine. 3. Question acute versus old nasal fracture. No other acute facial fracture. RADIATION DOSE DELIVERED: 2,610.23mGy.cm Total DLP DATA REPOSITORY: All CT scans at this facility are submitted to the National Radiology Data Registry (NRDR) Dose Index Registry (DIR) with the [employer] ([employer]). RADIATION OPTIMIZATION: All CT scans at this facility use at least one of these dose optimization te chniques: automated exposure control; mA and/or kV adjustment per patient size (includes targeted exa ms where dose is matched to clinical indication); or iterative reconstruction.
--- NOTE | 2022-01-13 09:30 | DI.RAD_ITS ---
Exam(s) XR KNEE RT 3V AP,LAT,ERICK EXAM: XR KNEE RT 3V AP,LAT,ERICK CLINICAL HISTORY: fall onto R knee, r/o fx. TECHNIQUE: 2D digital imaging was performed. Three views. COMPARISON: CR XR KNEE LT 3V AP,LAT,ERICK from 10/31/2020 FINDINGS: BONES: A total knee prosthesis is in place. No acute fracture is present. No bony destructive lesion is seen. JOINTS: The knee is normally aligned. No joint effusion is seen. SOFT TISSUE: Normal. IMPRESSION: No acute abnormality. DATA REPOSITORY: RADIATION DOSE DELIVERED:
--- NOTE | 2022-01-13 09:43 | ED.GENADUL_ITS ---
Discharge Plan Disposition Patient Disposition: HOME Condition: Stable Discharge Details Clinical Impression: Fall at home, Face lacerations, Laceration of left hand, Contusion of right knee Primary Care Provider: Lizett Sanchez ED Provider: Carley Gama Home Meds and New Rx's Prescriptions: New cephalexin 500 mg capsule 500 mg PO TID 5 Days Qty: 15 0RF Continued magnesium oxide 250 mg magnesium tablet 250 mg PO TID indomethacin 50 mg capsule 50 mg PO BID PRN tramadol 50 mg tablet 50 mg PO Q8H PRN (Reason: pain) Qty: 21 0RF diclofenac sodium 1 % gel 2 gm TP QID pantoprazole 20 mg tablet,delayed release (DR/EC) 20 mg PO DAILY amiodarone 200 mg tablet 200 mg PO DAILY metoprolol succinate [Toprol XL] 25 mg tablet extended release 24 hr 25 mg PO DAILY insulin glargine [Basaglar KwikPen U-100 Insulin] 100 unit/mL (3 mL) insulin pen 38 unit SC QHS ferrous sulfate 325 mg (65 mg iron) tablet 325 mg PO DAILY cholecalciferol (vitamin D3) 25 mcg (1,000 unit) tablet 25 mcg PO DAILY triamcinolone acetonide 0.1 % cream 1 applic topical BID PRN furosemide 40 mg tablet 40 mg PO DAILY tamsulosin 0.4 mg capsule 0.4 mg PO DAILY polyethylene glycol 3350 17 gram/dose powder 8.5 g PO DAILY PRN atorvastatin [Lipitor] 40 MG tablet 40 mg PO DAILY sennosides-docusate sodium [Senokot-S] 1 EACH tablet 1 tab PO BID ibuprofen 800 MG tablet 800 mg PO PRN PRN nitroglycerin [Nitrostat] 0.4 MG tablet, sublingual 0.4 mg Sublingual Q5 MIN PRN X3 PRNQty: 100 0RF finasteride 5 mg Tablet 5 mg PO DAILY Discharge Instructions Instructions: Laceration (ED), Contusion in Adults (ED), Facial Laceration (ED) Additional Instructions: Your imaging is reassuring and shows no evidence of acute concerning or significant findings. Keep wounds clean and dry. You can apply topical antibiotic ointment if you notice any redness, pain or swelling around wound sites. Cover wound with bandage if risk of contamination and at bedtime. Otherwise you can keep the wound open to air for short periods to allow edges to dry and heal. Return to the emergency department in 7 days for suture removal. Return immediately to the emergency department if you develop any worsening or new concerning symptoms. Discharge Data Discharge Date/Time-TO BE ENTERED AT DEPARTURE: 01/13/22 12:57 Discharge Physician: Carley Gama Medical Decision Making 76-year-old male with a history of obesity, hypertension, hyperlipidemia, diabetes, GERD, atrial fibrillation, bilateral knee replacements with right knee revision in 2016 presents with facial lacerations, left hand lacerations and right knee pain after fall into a pile of metal junk prior to arrival. Tetanus up-to-date 2019. He states he has a history of chronic balance issues and states this is no different than usual. He denies syncope. Do not feel indication for lab work or EKG related to fall. He has facial lacerations and left palmar hand lacerations. There is pain with range of motion of his left knee but no obvious evidence of trauma or laxity. Will refer for CT head, facial bones and cervical spine imaging due to complaint of neck pain to rule out fracture or intracranial injury. Will obtain a left hand x-ray to rule out fracture or foreign body and obtain a right knee x-ray to assess hardware and rule out fracture. Imaging reviewed and negative for acute findings. He had an acute versus old n keanu fracture. He has no acute injury to this area and denies any tenderness or pain. 6 nylon 5-0 sutures placed in L hand 2nd MCP laceration and 3 nylon 5-0 sutures placed to left hand third MCP laceration. 5 nylon 6-0 sutures placed to face. No other suture placement indicated as other wounds appear superficial. To cover prophylactically for hand infection and an additional protection with lip laceration, will treat with Keflex. Advised to return in 7 days for suture removal. Medical Records Medical records reviewed: Yes I reviewed the patient's medical records. Imaging Data Radiologic Study: Radiologist's impression: ?CT HEAD CERV SPINE ? FACIAL WO CLINICAL HISTORY: ? s/p head injury. ? TECHNIQUE:? Imaging Protocol: Axial computed tomography images with coronal and sagittal reformatted images were created and reviewed COMPARISON:? CT ABD ? PELVIS WO CONTRAST from 03/12/2010 FINDINGS: CT Head: Ventricles and Extra axial spaces: Normal in size and morphology for the patient's age. Hemorrhage: None. Cerebral parenchyma: Normal. Midline shift: None. Brainstem/Cerebellum: Normal. Calvarium: Normal. Visualized Paranasal sinuses/Mastoids: Mucous retention cyst floor right maxillary sinus.? Minimal mucosal thickening frontal and ethmoid sinuses. Soft Tissues: Unremarkable. CT Face: Facial Bones: Slight deformity of the nasal bones, acute versus old fracture..? Sinuses and Mastoids:? Mucous retention floor of right maxillary sinus.? Minimal ethmoid and frontal mucosal thickening.? Globes, extraocular muscles, optic nerves and retrobulbar fat:? Normal. Upper aerodigestive tract: Normal. Mandible and bilateral temporomandibular joints:? Normal. Soft tissues: Normal. CT Cervical Spine: Bones: No acute fracture or subluxation.? Degenerative disc changes greatest at C5-6.? Facet degenerative changes.? Soft Tissues: Unremarkable. Lung Apices: Clear. IMPRESSION: 1. No acute intracranial process. 2. No acute fracture or subluxation in the cervical spine. 3. Question acute versus old nasal fracture.? No other acute facial fracture. XR HAND LT COMPLETE CLINICAL HISTORY: ? fall onto L hand, lacerations 2nd/3rd MCP.? TECHNIQUE:? 2D digital imaging was performed.? Three views. COMPARISON:? No exams were available for comparison FINDINGS: BONES: No acute fracture is present. No bony destructive lesion is seen. JOINTS: No dislocation present. Mild degenerative changes. SOFT TISSUE: Normal. No foreign body. IMPRESSION: Unremarkable radiographs of the left hand. XR KNEE RT 3V AP,LAT,ERICK CLINICAL HISTORY: ? fall onto R knee, r/o fx.? TECHNIQUE:? 2D digital imaging was performed.? Three views. COMPARISON:? CR XR KNEE LT 3V AP,LAT,ERICK from 10/31/2020 FINDINGS: BONES: A total knee prosthesis is in place.? No acute fracture is present. No bony destructive lesion is seen. JOINTS: The knee is normally aligned. No joint effusion is seen. SOFT TISSUE: Normal. IMPRESSION: No acute abnormality.? HPI General Mode of arrival: ambulatory . Date/Time Provider Initiated Documentation: 01/13/22 09:03 . Limitations to Documentation: no limitations . Information obtained by: patient . HPI Narrative: Patient is a 76-year-old male with a history of obesity, hypertension, hyperlipidemia, diabetes, gerd, atrial fibrillation, bilateral knee replacements with history of right knee revision in 2016 presents with facial lacerations, hand laceration and right knee pain status post fall prior to arrival. Patient states he was walking outside and lost his balance when he fell into a pile of metal junk and scratched his face, left hand and hit his right knee. He states he has a history of balance issues and states this is no different than his usual. He denies any dizziness, chest pain, shortness of breath or loss of consciousness. Patient states he hit the metal junk but did not fall completely and was able to catch himself and get up and ambulate. He denies any bony pain in his left hand. He is having knee pain with ambulation. He also admits to neck pain with movement of his head. He denies any chest pain, abdominal pain, back pain or other extremity pain or Related Data Home Medications Medication Instructions Recorded Confirmed atorvastatin 40 mg tablet (Lipitor) 40 mg PO DAILY 09/05/15 01/13/22 sennosides 8.6 mg-docusate sodium 1 tab PO BID 11/25/16 01/13/22 50 mg tablet (Senokot-S) nitroglycerin 0.4 mg sublingual 0.4 mg sublingual Q5 MIN PRN X3 08/20/17 01/13/22 tablet (Nitrostat) PRN #100 tabs ibuprofen 800 mg tablet 800 mg PO PRN PRN 08/25/17 01/13/22 finasteride 5 mg tablet 5 mg PO DAILY 08/06/18 01/13/22 diclofenac sodium 1 % topical gel 2 gm topical QID 09/27/19 01/13/22 pantoprazole 20 mg tablet,delayed 20 mg PO DAILY 09/27/19 01/13/22 release amiodarone 200 mg tablet 200 mg PO DAILY 10/03/19 01/13/22 indomethacin 50 mg capsule 50 mg PO BID PRN 10/03/19 01/13/22 magnesium oxide 250 mg PO TID 10/03/19 01/13/22 metoprolol succinate 25 mg 25 mg PO DAILY 10/03/19 01/13/22 tablet,extended release 24 hr (Toprol XL) tramadol 50 mg tablet 50 mg PO Q8H PRN pain #21 tabs 10/31/20 01/13/22 cholecalciferol (vitamin D3) 25 25 mcg PO DAILY 11/13/20 01/13/22 mcg (1,000 unit) tablet ferrous sulfate 325 mg (65 mg 325 mg PO DAILY 11/13/20 01/13/22 iron) tablet insulin glargine 100 unit/mL (3 38 unit subcut QHS 11/13/20 10/03/21 mL) subcutaneous pen (Basaglar KwikPen U-100 Insulin) furosemide 40 mg tablet 40 mg PO DAILY 04/30/21 01/13/22 tamsulosin 0.4 mg capsule 0.4 mg PO DAILY 04/30/21 01/13/22 triamcinolone acetonide 0.1 % 1 applic topical BID PRN 04/30/21 01/13/22 topical cream polyethylene glycol 3350 17 8.5 g PO DAILY PRN 05/05/21 01/13/22 gram/dose oral powder cephalexin 500 mg capsule 500 mg PO TID 5 days #15 caps 01/13/22 Previous Rx's Medication Instructions Recorded nitroglycerin 0.4 mg sublingual 0.4 mg sublingual Q5 MIN PRN X3 08/20/17 tablet (Nitrostat) PRN #100 tabs tramadol 50 mg tablet 50 mg PO Q8H PRN pain #21 tabs 10/31/20 cephalexin 500 mg capsule 500 mg PO TID 5 days #15 caps 01/13/22 Allergies Allergy/AdvReac Type Severity Reaction Status Date / Time meperidine [From Demerol] Allergy pedal edema Verified 01/13/22 08:54 General Stated Complaint: Trauma JACQUELINE: 3 Review of Systems All systems reviewed & are unremarkable except as noted in HPI and below Constitutional Constitutional: Denies chills, Denies excessive sweating, Denies fatigue, Denies fever(s), Denies weakness and Denies weight loss Eyes Eyes: Reports system reviewed and no additional complaints, except as documented and Denies blurry vision ENT Ears, Nose, Mouth, and Throat: Denies vertigo, Denies dizziness, Denies otalgia, Denies nasal congestion, Denies sore throat and Denies throat swelling Cardiovascular Cardiovascular: Denies chest pain, Denies syncope, Denies rapid heart rate and Denies dyspnea Respiratory Respiratory: Denies chest congestion, Denies cough, Denies pain on inspiration and Denies dyspnea Gastrointestinal Gastrointestinal: Denies abdominal pain, Denies diarrhea and Denies vomiting Genitourinary Genitourinary: Denies hematuria, Denies dysuria and Denies flank pain Musculoskeletal Musculoskeletal: Denies back pain and Denies joint swelling Integumentary/Breasts Skin/Breast: Denies lesions and Denies rash Comments: facial and lip lacerations, L hand lacerations, R knee pain Neurologic Neurologic: Denies behavioral changes, Denies confusion, Denies vertigo, Denies dizziness, Denies syncope, Denies localized weakness and Denies weakness Psychiatric Psychiatric: Denies behavioral changes, Denies confusion and Denies depression Endocrine Endocrine: Denies excessive sweating and Denies fatigue Hematologic/Lymphatic Hematologic/Lymphatic: Denies easy bruising and Denies lymphadenopathy Allergic/Immunologic Allergic/Immunologic: Denies throat swelling PFSH All Active Problems (Updated 01/13/22 @ 12:30 by Carley Gama DO) Fall at home (Acute) Face lacerations (Acute) Laceration of left hand (Acute) Contusion of right knee (Acute) Pneumonia due to COVID-19 virus (Acute) Lumbar spinal stenosis (Acute) Trochanteric bursitis, right hip (Acute) Trochanteric bursitis, left hip (Acute) History of total bilateral knee replacement (Acute) Pt reports: Right TKA 2010 followed by revision 2015 [place] [facility] [place]ary artery disease (Chronic) Atrial fibrillation (Chronic) Medical History Bladder cancer Diabetes DJD (degenerative joint disease) GERD (gastroesophageal reflux disease) HTN (hypertension) Hyperlipemia Migraine Nephrolithiasis Obstructive sleep apnea Prinzmetal variant angina Rotator cuff impingement syndrome of left shoulder Shortness of breath Surgical History History of bladder surgery History of hernia repair History of knee replacement Social History Smoking/Tobacco Use Status: Former Tobacco Use Quit Date: 07/26/84 Tobacco: How many years used: 25 Smoking risk assessment performed?: Yes Alcohol Intake: former Drug use: Never Substance use type: does not use What type of physical activity do you participate in: none Do you feel safe at home: Yes Do you feel safe in your relationship?: Yes Exam Const General: cooperative Orientation: alert, awake and oriented x3 HENMT Head: normal to inspection Ears: hearing grossly normal bilaterally, external ears normal and TM's normal bilaterally General nose exam: external nose normal Face and sinus: normal facial exam Face images: 1. 2.5cm curved laceration through dermis inferior to lower lip. 2. 2cm superficial linear laceration. 3. 8cm superficial linear laceration on L facial cheek extending from nasolabial fold to temporal region. Mouth: oral mucosae normal Teeth and gingiva: edentulous Throat: posterior oropharynx normal Eyes General: appearance normal, both eyes and all related structures Eyelids: eyelids normal Pupils: PERRL EOM: EOM intact bilaterally Neck Neck: normal visual inspection Lymphatic: no lymphadenopathy noted Chest Chest: normal inspection of the chest Resp Effort & Inspection: normal respiratory effort and able to speak in complete sentences Cardio Rate: regular rate GI Inspection: normal to inspection Palpation: soft, not firm, no guarding, no hepatosplenomegaly, no masses and nontender Auscultation: normal bowel sounds Back/Spine/Pelvis Cervical Spine: pain with cervical ROM and No cervical spinal tenderness Thoracic/Lumbar Spine: thoracic and lumbar spine normal to inspection, No thoracic spinal tenderness and No lumbar spinal tenderness Skin General skin exam: no rashes or lesions noted Neuro General: patient alert and patient awake Cognition: normal cognition Speech: speech normal Gait: normal gait Motor: muscle tone normal throughout Sensory Exam: no sensory deficits noted Extrem Hand/finger images: 1. 3cm linear laceration through dermis. Bleeding controlled. 2. 2.5cm linear laceration through dermis. Bleeding controlled. Knee images: 1. Well healed surgical scar at site of knee replacement. No cellulitis, edema, erythema, ecchymoses. Other: Left upper extremity: No significant bony tenderness overlying left palmar laceration or remainder of left hand. No pain with range of motion to remainder of left upper extremity. Left lower extremity: Normal range of motion without pain. Right upper extremity: Normal range of motion without pain or evidence of trauma. Right lower extremity: Pain in right knee with range of motion. No obvious li gamentous laxity, deformity or evidence of trauma. Psych Appearance: grossly normal Mental Status: mental status grossly normal Speech and Movement: speech and movement normal Affect: normal affect Thought Process: normal Course Vital Signs Vital signs: Vital Signs Temperature 98.1 F 01/13/22 08:49 Pulse 65 01/13/22 08:49 Respiratory Rate 20 01/13/22 08:49 Blood Pressure 138/92 H 01/13/22 08:49 Pulse Oximetry 95 01/13/22 08:49 Temperature 98.1 F 01/13/22 08:49 Temperature Source Temporal Artery Scan 01/13/22 08:49 Pulse 65 01/13/22 08:49 Respiratory Rate 20 01/13/22 08:49 Respiratory Effort 01/13/22 09:06 Respiratory Depth Normal 01/13/22 09:06 Respiratory Pattern Normal 01/13/22 09:06 Blood Pressure 138/92 H 01/13/22 08:49 Blood Pressure Position Sitting 01/13/22 08:49 Pulse Oximetry 95 01/13/22 08:49 Oxygen Delivery Method Room Air 01/13/22 08:49 Oxygen Flow Rate 0 01/13/22 08:49 Pain Level 4 01/13/22 09:06 Procedures Laceration Laceration 1: Site: hand Side (If applicable): left Size (cm): 3 Description: linear Depth: simple, single layer Local Anesthetic: Lidocaine 1% Amount of anesthesia used (mL): 10 Pre-repair: wound explored and irrigated extensively Skin layer closed with: nylon Size (cm): 5-0 Number of sutures: 6 Technique: simple, interrupted Laceration 2: Site: hand Side (If applicable): left Size (cm): 2.5 Description: linear Depth: simple, single layer Local Anesthetic: Lidocaine 1% Amount of anesthesia used (mL): 6 Pre-repair: wound explored, irrigated extensively and deep structures intact Skin layer closed with: nylon Size (cm): 5-0 Number of sutures: 3 Technique: simple, interrupted Laceration 3: Site: lip Size (cm): 2.5 Description: linear (curved) Depth: simple, single layer Local Anesthetic: Lidocaine 1% Amount of anesthesia used (mL): 5 Pre-repair: wound explored, irrigated extensively and deep structures intact Skin layer closed with: nylon Size (cm): 6-0 Number of sutures: 5 Technique: simple, interrupted
[2022-01-13] MEDS: Lidocaine 1% Multi-Dose 20 ML VIAL ×2 (11:58)
[2022-01-13] MEDS: Cephalexin 500 MG CAP PO (12:42)
== END 2022-01-13 12:57 | disposition home or self-care (01) ==
PROVIDERS: Emergency Provider Physician Assistant; PCP Nurse Practitioner Family
DX: S01.511A Laceration without foreign body of lip, initial encounter (principal); S01.81XA Laceration without foreign body of other part of head, initial encounter; S01.412A Laceration without foreign body of left cheek and temporomandibular area, initial encounter; S61.412A Laceration without foreign body of left hand, initial encounter; S80.01XA Contusion of right knee, initial encounter; W18.39XA Other fall on same level, initial encounter; W26.8XXA Contact with other sharp object(s), not elsewhere classified, initial encounter
CPT/HCPCS: 12002; 12011; 73562; 99284; 70450; 70486; 72125; 73130; J3490

== ENCOUNTER 2022-01-20 14:34 | Emergency (ER) | payer MEDICARE, SELFPAY ==
[2022-01-20 14:36] VITALS: BP 161/80; PULSE 64; RESP 20; TEMP 36.6; O2SAT 94
--- NOTE | 2022-01-20 14:50 | W.ED.GENAD ---
Discharge Plan Disposition Patient Disposition: HOME Condition: Stable Discharge Details Clinical Impression: Visit for suture removal Primary Care Provider: Lizett Sanchez ED Provider: Padmini Jules Home Meds and New Rx's Prescriptions: Continued magnesium oxide 250 mg magnesium tablet 250 mg PO TID indomethacin 50 mg capsule 50 mg PO BID PRN tramadol 50 mg tablet 50 mg PO Q8H PRN (Reason: pain) Qty: 21 0RF diclofenac sodium 1 % gel 2 gm TP QID pantoprazole 20 mg tablet,delayed release (DR/EC) 20 mg PO DAILY amiodarone 200 mg tablet 200 mg PO DAILY metoprolol succinate [Toprol XL] 25 mg tablet extended release 24 hr 25 mg PO DAILY insulin glargine [Basaglar KwikPen U-100 Insulin] 100 unit/mL (3 mL) insulin pen 38 unit SC QHS ferrous sulfate 325 mg (65 mg iron) tablet 325 mg PO DAILY cholecalciferol (vitamin D3) 25 mcg (1,000 unit) tablet 25 mcg PO DAILY triamcinolone acetonide 0.1 % cream 1 applic topical BID PRN furosemide 40 mg tablet 40 mg PO DAILY tamsulosin 0.4 mg capsule 0.4 mg PO DAILY polyethylene glycol 3350 17 gram/dose powder 8.5 g PO DAILY PRN atorvastatin [Lipitor] 40 MG tablet 40 mg PO DAILY sennosides-docusate sodium [Senokot-S] 1 EACH tablet 1 tab PO BID ibuprofen 800 MG tablet 800 mg PO PRN PRN nitroglycerin [Nitrostat] 0.4 MG tablet, sublingual 0.4 mg Sublingual Q5 MIN PRN X3 PRNQty: 100 0RF finasteride 5 mg Tablet 5 mg PO DAILY Discharge Instructions Instructions: Stitches Removal (ED) Additional Instructions: Keep clean and dry. In the ED Band-Aid while working or outside. Follow up with primary care provider if needed. Return to ED sooner if any worsening or concerns. Increase oral fluids. Please take Tylenol with food every 4-6 hours as needed for pain and swelling. Referrals: Lizett Sanchez [Primary Care Provider] - Discharge Data Discharge Date/Time-TO BE ENTERED AT DEPARTURE: 01/20/22 15:01 Medical Decision Making Patient here for suture removal. Patient had 9 sutures placed to his left hand and 5 to his face after falling into metal junk. Wound is well approximated no surrounding erythema or signs of infection. Patient reports no problems. Patient was placed on antibiotics. Sutures removed by community health nurse staff in triage after my exam verbalized understanding. No dehiscence noted. Patient discharged home instructed on home care verbalized understanding. Medical Records Medical records reviewed: Yes I reviewed the patient's medical records. HPI General Mode of arrival: ambulatory. Date/Time Provider Initiated Documentation: 01/20/22 14:35. Limitations to Documentation: no limitations. Information obtained by: patient, RN notes reviewed and old records reviewed. HPI Narrative: 76-year-old male presents to the ER for suture removal. Patient was seen 7 days ago and had sutures placed to his left palmar surface of his hand and his lower lip chin area. He denies any problems at home. Denies any fever or chills. Patient was initially placed on antibiotic. Past medical history includes [id number] diabetes GERD, high cholesterol, hypertension, hyperlipidemia, migraine, obesity, obstructive sleep apnea and a history of bladder cancer. Related Data Home Medications Medication Instructions Recorded Confirmed atorvastatin 40 mg tablet (Lipitor) 40 mg PO DAILY 09/05/15 01/20/22 sennosides 8.6 mg-docusate sodium 1 tab PO BID 11/25/16 01/20/22 50 mg tablet (Senokot-S) nitroglycerin 0.4 mg sublingual 0.4 mg sublingual Q5 MIN PRN X3 08/20/17 01/20/22 tablet (Nitrostat) PRN #100 tabs ibuprofen 800 mg tablet 800 mg PO PRN PRN 08/25/17 01/20/22 finasteride 5 mg tablet 5 mg PO DAILY 08/06/18 01/20/22 diclofenac sodium 1 % topical gel 2 gm topical QID 09/27/19 01/20/22 pantoprazole 20 mg tablet,delayed 20 mg PO DAILY 09/27/19 01/20/22 release amiodarone 200 mg tablet 200 mg PO DAILY 10/03/19 01/20/22 indomethacin 50 mg capsule 50 mg PO BID PRN 10/03/19 01/20/22 magnesium oxide 250 mg PO TID 10/03/19 01/20/22 metoprolol succinate 25 mg 25 mg PO DAILY 10/03/19 01/20/22 tablet,extended release 24 hr (Toprol XL) tramadol 50 mg tablet 50 mg PO Q8H PRN pain #21 tabs 10/31/20 01/20/22 cholecalciferol (vitamin D3) 25 25 mcg PO DAILY 11/13/20 01/20/22 mcg (1,000 unit) tablet ferrous sulfate 325 mg (65 mg 325 mg PO DAILY 11/13/20 01/20/22 iron) tablet insulin glargine 100 unit/mL (3 38 unit subcut QHS 11/13/20 01/20/22 mL) subcutaneous pen (Basaglar KwikPen U-100 Insulin) furosemide 40 mg tablet 40 mg PO DAILY 04/30/21 01/20/22 tamsulosin 0.4 mg capsule 0.4 mg PO DAILY 04/30/21 01/20/22 triamcinolone acetonide 0.1 % 1 applic topical BID PRN 04/30/21 01/20/22 topical cream polyethylene glycol 3350 17 8.5 g PO DAILY PRN 05/05/21 01/20/22 gram/dose oral powder Previous Rx's Medication Instructions Recorded nitroglycerin 0.4 mg sublingual 0.4 mg sublingual Q5 MIN PRN X3 08/20/17 tablet (Nitrostat) PRN #100 tabs tramadol 50 mg tablet 50 mg PO Q8H PRN pain #21 tabs 10/31/20 Allergies Allergy/AdvReac Type Severity Reaction Status Date / Time meperidine [From Demerol] Allergy pedal edema Verified 01/20/22 14:39 General Stated Complaint: SutureRem JACQUELINE: 4 Review of Systems Integumentary/Breasts Skin/Breast: Reports wounds (Here for suture removal ) [facility] All Active Problems (Updated 01/20/22 @ 14:52 by Padmini Jules NP) Fall at home (Acute) Face lacerations (Acute) Laceration of left hand (Acute) Contusion of right knee (Acute) Visit for suture removal (Acute) Pneumonia due to COVID-19 virus (Acute) Lumbar spinal stenosis (Acute) Trochanteric bursitis, right hip (Acute) Trochanteric bursitis, left hip (Acute) History of total bilateral knee replacement (Acute) Pt reports: Right TKA 2010 followed by revision 2014 Left TKA 2015 [facility] [place] Coronary artery disease (Chronic) Atrial fibrillation (Chronic) Medical History Bladder cancer Diabetes DJD (degenerative joint disease) GERD (gastroesophageal reflux disease) HTN (hypertension) Hyperlipemia Migraine Nephrolithiasis Obstructive sleep apnea Prinzmetal variant angina Rotator cuff impingement syndrome of left shoulder Shortness of breath Surgical History History of bladder surgery History of hernia repair History of knee replacement Social History Smoking/Tobacco Use Status: Former Tobacco Use Quit Date: 07/26/84 Tobacco: How many years used: 25 Smoking risk assessment performed?: Yes Alcohol Intake: former Drug use: Never Substance use type: does not use What type of physical activity do you participate in: none Do you feel safe at home: Yes Do you feel safe in your relationship?: Yes Exam Narrative Exam Narrative: Repaired well approximated laceration noted to the palmar surface of the patient's left hand full range of motion to his left hand. No surrounding erythema or induration noted. Well approximated laceration noted to left lower lip and jaw area. Anterior chin. No surrounding erythema or induration. No signs of infection no drainage. Skin Wounds: wounds noted Course Vital Signs Vital signs: Vital Signs Temperature 36.6 C 01/20/22 14:36 Pulse 64 01/20/22 14:36 Respiratory Rate 20 01/20/22 14:36 Blood Pressure 161/80 H 01/20/22 14:36 Pulse Oximetry 94 01/20/22 14:36 Temperature 36.6 C 01/20/22 14:36 Temperature Source Temporal Artery Scan 01/20/22 14:36 Pulse 64 01/20/22 14:36 Respiratory Rate 20 01/20/22 14:36 Respiratory Effort 01/20/22 14:39 Blood Pressure 161/80 H 01/20/22 14:36 Blood Pressure Position Sitting 01/20/22 14:36 Pulse Oximetry 94 01/20/22 14:36 Oxygen Delivery Method Room Air 01/20/22 14:36 Oxygen Flow Rate 0 01/20/22 14:36 Pain Level 0 01/20/22 14:36
== END 2022-01-20 15:01 | disposition home or self-care (01) ==
PROVIDERS: Emergency Provider Registered Nurse Emergency; PCP Nurse Practitioner Family
DX: S61.412D Laceration without foreign body of left hand, subsequent encounter (principal); S01.81XD Laceration without foreign body of other part of head, subsequent encounter; X58.XXXD Exposure to other specified factors, subsequent encounter; Z48.02 Encounter for removal of sutures

== ENCOUNTER 2022-01-22 16:26 | Outpatient (REF) | payer MEDICARE, SELFPAY ==
[2022-01-22 15:41] LABS: Anion Gap 8.6 mmol/L (3-11); BUN 32 mg/dL (7-18); CO2 26.4 mmol/L (21.0-32.0); CREATININE 1.8 mg/dL (0.70-1.30); Calcium 8.9 mg/dL (8.5-10.1); Chloride 100 mmol/L (98-107); Estimated GFR 36.77 (mL/min/1.73m2); Glucose 217 mg/dL (74-106); Potassium 4.5 mmol/L (3.5-5.1); Sodium 135 mmol/L (136-145)
== END 2022-01-22 16:27 | disposition home or self-care (01) ==
LOC: NCHCN 16:26
PROVIDERS: PCP Nurse Practitioner Family; Visit Provider Nurse Practitioner Family
DX: E11.40 Type 2 diabetes mellitus with diabetic neuropathy, unspecified (principal); N28.9 Disorder of kidney and ureter, unspecified; I48.91 Unspecified atrial fibrillation
CPT/HCPCS: 80048; 83036

== ENCOUNTER 2022-03-24 18:41 | Outpatient (REF) | payer MEDICARE, SELFPAY ==
[2022-03-24 15:59] LABS: Anion Gap 8.4 mmol/L (3-11); BUN 29 mg/dL (7-18); CO2 23.6 mmol/L (21.0-32.0); CREATININE 1.7 mg/dL (0.70-1.30); Calcium 8.7 mg/dL (8.5-10.1); Chloride 106 mmol/L (98-107); Estimated GFR 41.01 (mL/min/1.73m2); Glucose 187 mg/dL (74-106); Potassium 4.9 mmol/L (3.5-5.1); Sodium 138 mmol/L (136-145)
== END 2022-03-24 18:42 | disposition home or self-care (01) ==
LOC: NCHCN 18:41
PROVIDERS: PCP Nurse Practitioner Family; Visit Provider Nurse Practitioner Family
DX: N28.9 Disorder of kidney and ureter, unspecified (principal)
CPT/HCPCS: 80048

== ENCOUNTER 2022-04-17 08:00 | Outpatient (CLI) | payer MEDICARE, SELFPAY | END 2022-04-17 08:01 | disposition home or self-care (01) | LOC: DI.CARD 08:07 | PROVIDERS: PCP Nurse Practitioner Family; Visit Provider Internal Medicine Cardiovascular Disease | DX: R69 Illness, unspecified (principal) | CPT/HCPCS: 93010 ==

== ENCOUNTER → 2022-04-21 10:29 | Outpatient (BNVA) | payer MEDICARE, SELFPAY | PROVIDERS: PCP Nurse Practitioner Family; Referring Provider Nurse Practitioner Family; Visit Provider Internal Medicine Cardiovascular Disease | DX: I48.0 Paroxysmal atrial fibrillation (principal); I44.7 Left bundle-branch block, unspecified; I25.10 Atherosclerotic heart disease of native coronary artery without angina pectoris; I10 Essential (primary) hypertension; G47.33 Obstructive sleep apnea (adult) (pediatric); Z51.81 Encounter for therapeutic drug level monitoring | CPT/HCPCS: 93005; 99214 ==

== ENCOUNTER 2022-04-21 10:49 | Outpatient (CLI) | payer MEDICARE, SELFPAY ==
--- NOTE | 2022-04-21 10:45 | RT.EKG_ITS ---
APPROVED REPORT Exam: Resting ECG Reason for Exam: monitoring QTc due to amiodarone Patient Location: O HR:62 bpm ECG Measurements Heart Rate 62 AXIS AZ [id number] P [id number] QRSd 159 QRS -9 QT 469 T 103 QTc 477 Conclusion Sinus rhythm Left bundle branch block...QRSd>120, broad/notched R
== END 2022-04-21 10:50 | disposition home or self-care (01) ==
LOC: DI.CARD 10:51
PROVIDERS: PCP Nurse Practitioner Family; Visit Provider Internal Medicine Cardiovascular Disease
DX: I25.10 Atherosclerotic heart disease of native coronary artery without angina pectoris (principal); I48.91 Unspecified atrial fibrillation; Z51.81 Encounter for therapeutic drug level monitoring
CPT/HCPCS: 93010

== ENCOUNTER 2022-04-23 03:37 | Outpatient (CLI) | payer MEDICARE, SELFPAY ==
--- NOTE | 2022-04-23 07:45 | DI.RAD_ITS ---
Exam(s) XR CHEST 2V PA LATERAL EXAM: XR CHEST 2V PA LATERAL CLINICAL HISTORY: Amiodarone therapy,cad,z51.81,i25.10,therapeutic drug monitoring TECHNIQUE: 2D digital imaging was performed of the chest. Two images were obtained. PA and lateral views were obtained. COMPARISON: CR XR CHEST 2V PA LATERAL from 08/06/2018 CR XR PORTABLE CHEST AP from 06/09/2021 FINDINGS: MEDIASTINUM: Normal. HEART: Normal. PULMONARY VASCULATURE: Normal. LUNGS: Clear. PLEURAL SPACE: No pleural effusion or pneumothorax. BONE:Within normal limits for the patient's age. OTHER FINDINGS:Normal. IMPRESSION: No acute pulmonary findings. DATA REPOSITORY: RADIATION DOSE DELIVERED:
== END 2022-04-23 03:57 ==
PROVIDERS: PCP Nurse Practitioner Family; Visit Provider Internal Medicine Cardiovascular Disease
DX: I25.10 Atherosclerotic heart disease of native coronary artery without angina pectoris (principal); Z51.81 Encounter for therapeutic drug level monitoring
CPT/HCPCS: 71046

== ENCOUNTER 2022-06-03 18:47 | Outpatient (REF) | payer MEDICARE, SELFPAY ==
[2022-06-03 15:51] LABS: Anion Gap 4.2 mmol/L (3-11); BUN 25 mg/dL (7-18); CO2 30.8 mmol/L (21.0-32.0); CREATININE 1.7 mg/dL (0.70-1.30); Chloride 103 mmol/L (98-107); Estimated GFR 41.01 (mL/min/1.73m2); Glucose 183 mg/dL (74-106); Potassium 4.6 mmol/L (3.5-5.1); Sodium 138 mmol/L (136-145); TSH 2.32 uIU/mL (0.36-3.74)
[2022-06-03 16:58] LABS: Hemoglobin A1C 7.6 % (<5.7)
[2022-06-10 16:07] LABS: O-desmethyltramadol 60620 ng/mL (Cutoff:25); Tramadol 45040 ng/mL (Cutoff:25)
== END 2022-06-03 18:48 | disposition home or self-care (01) ==
LOC: NCHCN 18:47
PROVIDERS: PCP Nurse Practitioner Family; Visit Provider Nurse Practitioner Family
DX: E11.9 Type 2 diabetes mellitus without complications (principal); R06.09 Other forms of dyspnea; G89.29 Other chronic pain; N28.9 Disorder of kidney and ureter, unspecified
CPT/HCPCS: 80048; 80373; 83036; 84443

== ENCOUNTER 2022-08-24 12:07 | Outpatient (REF) | payer MEDICARE, SELFPAY ==
[2022-08-24 17:02] LABS: ALT 25 U/L (16-63); AST 22 U/L (15-37); Albumin 3.8 g/dL (3.4-5.0); Alkaline Phosphatase 155 U/L (46-116); Anion Gap 9.5 mmol/L (3-11); BUN 28 mg/dL (7-18); Bilirubin, Total 1.1 mg/dL (0.2-1.0); CO2 26.5 mmol/L (21.0-32.0); CREATININE 1.8 mg/dL (0.70-1.30); Calcium 9.1 mg/dL (8.5-10.1); Chloride 105 mmol/L (98-107); Estimated GFR 38.29 (mL/min/1.73m2); Glucose 110 mg/dL (74-106); Magnesium 2.2 mg/dL (1.8-2.4); Potassium 4.5 mmol/L (3.5-5.1); Sodium 141 mmol/L (136-145); Total Protein 7.7 g/dL (6.4-8.2)
== END 2022-08-24 12:08 | disposition home or self-care (01) ==
LOC: NCHCN 12:07
PROVIDERS: PCP Nurse Practitioner Family; Visit Provider Family Medicine
DX: N18.32 Chronic kidney disease, stage 3b (principal); I50.9 Heart failure, unspecified; G89.29 Other chronic pain; Z79.891 Long term (current) use of opiate analgesic
CPT/HCPCS: 80053; 83735

== ENCOUNTER → 2022-10-19 10:10 | Outpatient (BNVA) | payer MEDICARE, SELFPAY | PROVIDERS: PCP Nurse Practitioner Family; Visit Provider Internal Medicine Cardiovascular Disease | DX: I48.0 Paroxysmal atrial fibrillation (principal) | CPT/HCPCS: 99213 ==

== ENCOUNTER 2022-10-20 13:11 | Outpatient (REF) | payer MEDICARE, SELFPAY ==
[2022-10-20 17:41] LABS: Anion Gap 9.9 mmol/L (3-11); BUN 29 mg/dL (7-18); CO2 24.1 mmol/L (21.0-32.0); CREATININE 1.7 mg/dL (0.70-1.30); Calcium 8.6 mg/dL (8.5-10.1); Chloride 107 mmol/L (98-107); Estimated GFR 41.01 (mL/min/1.73m2); Glucose 204 mg/dL (74-106); Potassium 4.6 mmol/L (3.5-5.1); Sodium 141 mmol/L (136-145)
== END 2022-10-20 13:12 | disposition home or self-care (01) ==
LOC: NCHCN 13:11
PROVIDERS: PCP Nurse Practitioner Family; Visit Provider Nurse Practitioner Family
DX: N28.9 Disorder of kidney and ureter, unspecified (principal)
CPT/HCPCS: 80048

== ENCOUNTER 2023-01-28 12:53 | Outpatient (REF) | payer MEDICARE, SELFPAY ==
[2023-01-28 17:56] LABS: Hemoglobin A1C 7.3 % (<5.7)
[2023-01-28 18:12] LABS: Anion Gap 9.7 mmol/L (3-11); BUN 25 mg/dL (7-18); CO2 25.3 mmol/L (21.0-32.0); CREATININE 1.6 mg/dL (0.70-1.30); Calcium 8.9 mg/dL (8.5-10.1); Chloride 106 mmol/L (98-107); Estimated GFR 43.83 (mL/min/1.73m2); Glucose 174 mg/dL (74-106); Sodium 141 mmol/L (136-145)
[2023-02-06 12:18] LABS: O-desmethyltramadol 1767 ng/mL (Cutoff:25); Tramadol 332 ng/mL (Cutoff:25)
== END 2023-01-28 12:54 | disposition home or self-care (01) ==
LOC: NCHCN 12:53
PROVIDERS: PCP Nurse Practitioner Family; Visit Provider Nurse Practitioner Family
DX: E11.9 Type 2 diabetes mellitus without complications (principal); G89.29 Other chronic pain; Z79.891 Long term (current) use of opiate analgesic; N18.32 Chronic kidney disease, stage 3b
CPT/HCPCS: 80048; 80373; 83036

== ENCOUNTER 2023-02-25 17:18 | Outpatient (REF) | payer MEDICARE, SELFPAY ==
[2023-02-25 16:47] LABS: HDL Cholesterol 42 mg/dL (40-60); LDL CHOLESTEROL 78 mg/dL (<100)
[2023-02-25 17:42] LABS: Creatine Kinase 89 U/L (39-308)
== END 2023-02-25 17:19 | disposition home or self-care (01) ==
LOC: NCHCN 17:18
PROVIDERS: PCP Nurse Practitioner Family; Visit Provider Nurse Practitioner Family
DX: E78.5 Hyperlipidemia, unspecified (principal)
CPT/HCPCS: 82550; 83721; 83718

== ENCOUNTER 2023-04-07 05:29 | Observation (INO) | payer MEDICARE, SELFPAY ==
[2023-04-07] VITALS (94 sets, daily range): BP systolic 99–170; BP diastolic 43–99; PULSE 53–100; RESP 11–27; TEMP 35.6–36.7; O2SAT 91–97
--- NOTE | 2023-04-07 05:15 | RT.EKG_ITS ---
APPROVED REPORT Exam: Resting ECG Reason for Exam: chest pain Patient Location: E HR:65 bpm ECG Measurements Heart Rate 65 AXIS MD 265 P 231 QRSd 170 QRS 184 QT 477 T 63 QTc 496 Conclusion Sinus or ectopic atrial rhythm...P axis (-45,135) Ventricular premature complex...V complex w/ short R-R interval Prolonged MD interval...MD >220, V-rate 50- 90 Consider dextrocardia...P, QRS axis rightward
--- NOTE | 2023-04-07 05:45 | DI.CT_ITS ---
Exam(s) CT THORAX ABD/PEL CTA EXAM: CT THORAX ABD/PEL CTA CLINICAL HISTORY: chest pain radiating to the abdomen?dissection. TECHNIQUE: Imaging Protocol: Axial computed tomography images with coronal and sagittal reformatted images were created and reviewed CONTRAST MATERIAL: Intravenous: Omnipaque 350 Contrast volume:100 ml Oral: None FINDINGS: CHEST: AORTA: No evidence of thoracic aortic aneurysm nor dissection. No pericardial effusion. Descending thoracic aorta upper normal diameter. No evidence of abdominal aortic aneurysm. No aneurysm of the iliac vessels and common femoral arteries. No intimal flaps evident. LUNGS: No confluent infiltrates nor pleural effusions. No pneumothorax.. MEDIASTINUM: There is no hilar nor mediastinal adenopathy. Visualized thyroid unremarkable.No evidenc e of mediastinal hematoma. CARDIAC: Heart size normal. Slight small pericardial effusion noted. Maximum thickness 8 millimeter s. OSSEOUS: No fractures. No significant osseous lesions. ABDOMEN: There is no evidence of abdominal aortic aneurysm nor dissection.There is no aneurysmal dilatation of the common iliac arteries.The celiac and superior mesenteric arteries are patent.Inferior mesenteric artery is patent. Left renal artery patent. No right renal artery evident. No right kidney eviden t. Surgically absent. There is no ascites. LIVER: Liver is hypodense implying steatosis. There no discrete focal hepatic lesions identified GALLBLADDER/BILIARY: , Either sludge or tiny gallstones. Gallbladder does not appear edematous. CBD is not dilated. PANCREAS: No evidence of pancreatic mass nor dilatation of the pancreatic duct. SPLEEN: Spleen is not enlarged. There are no intrasplenic lesions. Splenic and portal veins are gamble nt. ADRENALS: There is a nodule in the left adrenal gland which measures 1.5 x 1.3 cm. Appears unchanged from 2018 and probable adenoma. Opposite-right adrenal gland is surgically absent. KIDNEYS: Right kidney surgically absent. No abnormal tissue seen in the right renal fossa. There is a nonobstructive calculus in the lower pole of the left kidney evident which measures 8-9 mm. No ot her focal left kidney findings. No hydronephrosis. No hydroureter. No obvious abnormality in the n ondistended urinary bladder. ABDOMINAL AORTA: The abdominal aorta is not enlarged. LYMPH NODES: There is no retroperitoneal nor para-aortic adenopathy. No obvious mesenteric masses. ABDOMINAL WALL: There is a midline anterior abdominal wall hernia sac which measures 6 cm wide by 4 c m AP by 4 cm cephalocaudal. Contains part of a small-bowel loop which does not appear edematous. GI: There is an enlarged bowel loops in the central abdomen which exhibits diameter 4 cm and is part of small bowel. This is a site of enteroenteric anastomosis. Does not appear to be gross dilatation of the bowel above this level. No true bowel obstruction. There diverticuli in this sigmoid. No o bvious diverticulitis. PELVIS: LYMPH NODES: There is no intrapelvic nor inguinal adenopathy. GI: No evidence of appendicitis.No evidence of sigmoid diverticulitis. URINARY BLADDER: No calculi nor masses evident REPRODUCTIVE: Prostate size minimally prominent. Seminal vesicles unremarkable. OSSEOUS: No significant osseous lesions. IMPRESSION: 1. No evidence of aortic dissection, as per request. No evidence of aneurysm. 2. No acute intrathoracic findings. 3. Right kidney and adrenal gland are surgically absent. No abnormal tissue evident in the right cristin al fossa. 4. Left adrenal nodule which is probably an adenoma as it appears unchanged from 2018 on the lower mo st images of the chest CT scan at that time. 5. Solitary nonobstructive 8-9 mm calculus in the lower pole left kidney. No hydronephrosis. No ab normality in the urinary bladder. 6. Anterior abdominal wall hernia which contains nonobstructed and non edematous small bowel loops. There also appears to be an enteroenteric anastomosis in the midline abdomen. This appears somewhat dilated although there is no true bowel obstruction evident at this level. Bowel loops above this l evel are not dilated. Stomach is not distended. 7. No evidence of appendicitis nor diverticulitis. No ascites. RADIATION DOSE DELIVERED: 1,508.2mGy.cm Total DLP DATA REPOSITORY: All CT scans at this facility are submitted to the National Radiology Data Registry (NRDR) Dose Index Registry (DIR) with the [employer] (A[employer]). RADIATION OPTIMIZATION: All CT scans at this facility use at least one of these dose optimization te chniques: automated exposure control; mA and/or kV adjustment per patient size (includes targeted exa ms where dose is matched to clinical indication); or iterative reconstruction.
--- NOTE | 2023-04-07 05:45 | RT.EKG_ITS ---
APPROVED REPORT Exam: Resting ECG Reason for Exam: chest pain Patient Location: E HR:66 bpm ECG Measurements Heart Rate 66 AXIS FL 276 P -70 QRSd 167 QRS -14 QT 478 T 114 QTc 502 Conclusion Sinus or ectopic atrial rhythm...P axis (-45,135) Prolonged FL interval...FL >220, V-rate 50- 90 Left bundle branch block...QRSd>120, broad/notched R ST elevation secondary to IVCD...Multiple VCG criteria
--- NOTE | 2023-04-07 05:46 | W.ED.GENAD ---
Discharge Plan Discharge Details Chief Complaint: Chest Pain Clinical Impression: Chest pain, Epigastric pain Primary Care Provider: Lizett Sanchez ED Provider: Guille Burciaga Home Meds and New Rx's Prescriptions: No Action magnesium oxide 250 mg magnesium tablet 250 mg PO TID indomethacin 50 mg capsule 50 mg PO BID PRN tramadol 50 mg tablet 50 mg PO Q8H PRN (Reason: pain) Qty: 21 0RF diclofenac sodium 1 % gel 2 gm TP QID pantoprazole 20 mg tablet,delayed release (DR/EC) 20 mg PO DAILY amiodarone 200 mg tablet 200 mg PO DAILY ferrous sulfate 325 mg (65 mg iron) tablet 325 mg PO DAILY cholecalciferol (vitamin D3) 25 mcg (1,000 unit) tablet 25 mcg PO DAILY triamcinolone acetonide 0.1 % cream 1 applic topical BID PRN furosemide 40 mg tablet 40 mg PO DAILY tamsulosin 0.4 mg capsule 0.4 mg PO DAILY polyethylene glycol 3350 17 gram/dose powder 8.5 g PO DAILY PRN insulin glargine [Basaglar KwikPen U-100 Insulin] 100 unit/mL (3 mL) insulin pen 27 unit SC QHS atorvastatin [Lipitor] 40 MG tablet 40 mg PO DAILY sennosides-docusate sodium [Senokot-S] 1 EACH tablet 1 tab PO BID ibuprofen 800 MG tablet 800 mg PO PRN PRN nitroglycerin [Nitrostat] 0.4 MG tablet, sublingual 0.4 mg Sublingual Q5 MIN PRN X3 PRNQty: 100 0RF finasteride 5 mg Tablet 5 mg PO DAILY Medical Decision Making 77 yo male with hx of afib s/p watchmen procedure, htn, CAD per chart review but he denies having had a prior heart attack or stent/bypass, who comes in with ems with chest pressure. HE staes for the last 3 days when he exerts himself he gets chest pressure. It resolves when he sits and stops exerting himself. The pain intermittently radiates to the epigastric area. No vomiting, no diaphoresis, no dyspnea, denies fevers/chills. HE arrives stable, speaking clearly in no distress. Clear lung sounds, no murmurs, his abomen is tender in the ruq and epigastric area. EKG nondiagnostic, will proceed with cbc, cmp, troponin, lipase and given the tenderness in the abdomen with the chest pain obtain cta thorac/abd/pelvis to evaluate for dissection and possible gallbladder pathology. Pt stable, no chest pain or pressure currently, pt signed out to oncoming provider pending results of imaging and delta troponin, dispo Differential Diagnosis Differential Diagnosis: dissection, acs, esophageal spasm Medical Records Medical records reviewed: Yes I reviewed the patient's medical records. Lab Data Lab results reviewed: Yes I reviewed the patient's lab results. ECG Data Attestation: I personally reviewed and interpreted this ECG (s) as follows: Prior ECG tracings: available for review Interpretation: sinus rate of 65, lbbb no stemi 2nd ekg sins rate of 66 lbbb, no stemi I and AVR with different morphology due to first ekg having limb lead reversal HPI General Mode of arrival: EMS. Date/Time Provider Initiated Documentation: 04/07/23 05:30. Limitations to Documentation: no limitations. Information obtained by: patient. History of Present Illness 77 year old M presents to the emergency department with the chief complaint of chest pain, described as moderate, Patient started experiencing this day(s) (3) and it has been intermittent. Rest improves symptom(s), Movement worsens symptoms . Patient notes denies fever/chills and shortness of breath. Patient did receive the following treatments prior to arrival, none Related Data Home Medications Medication Instructions Recorded Confirmed atorvastatin 40 mg tablet (Lipitor) 40 mg PO DAILY 09/05/15 10/19/22 sennosides 8.6 mg-docusate sodium 1 tab PO BID 11/25/16 10/19/22 50 mg tablet (Senokot-S) nitroglycerin 0.4 mg sublingual 0.4 mg sublingual Q5 MIN PRN X3 08/20/17 10/19/22 tablet (Nitrostat) PRN #100 tabs ibuprofen 800 mg tablet 800 mg PO PRN PRN 08/25/17 10/19/22 finasteride 5 mg tablet 5 mg PO DAILY 08/06/18 10/19/22 diclofenac sodium 1 % topical gel 2 gm topical QID 09/27/19 10/19/22 pantoprazole 20 mg tablet,delayed 20 mg PO DAILY 09/27/19 10/19/22 release amiodarone 200 mg tablet 200 mg PO DAILY 10/03/19 10/19/22 indomethacin 50 mg capsule 50 mg PO BID PRN 10/03/19 10/19/22 magnesium oxide 250 mg PO TID 10/03/19 10/19/22 tramadol 50 mg tablet 50 mg PO Q8H PRN pain #21 tabs 10/31/20 10/19/22 cholecalciferol (vitamin D3) 25 25 mcg PO DAILY 11/13/20 10/19/22 mcg (1,000 unit) tablet ferrous sulfate 325 mg (65 mg 325 mg PO DAILY 11/13/20 10/19/22 iron) tablet furosemide 40 mg tablet 40 mg PO DAILY 04/30/21 10/19/22 tamsulosin 0.4 mg capsule 0.4 mg PO DAILY 04/30/21 10/19/22 triamcinolone acetonide 0.1 % 1 applic topical BID PRN 04/30/21 10/19/22 topical cream polyethylene glycol 3350 17 8.5 g PO DAILY PRN 05/05/21 10/19/22 gram/dose oral powder insulin glargine 100 unit/mL (3 27 unit subcut QHS 04/21/22 10/19/22 mL) subcutaneous pen (Basaglar KwikPen U-100 Insulin) Previous Rx's Medication Instructions Recorded nitroglycerin 0.4 mg sublingual 0.4 mg sublingual Q5 MIN PRN X3 08/20/17 tablet (Nitrostat) PRN #100 tabs tramadol 50 mg tablet 50 mg PO Q8H PRN pain #21 tabs 10/31/20 Allergies Allergy/AdvReac Type Severity Reaction Status Date / Time meperidine [From Demerol] Allergy pedal edema Verified 10/19/22 10:50 General Stated Complaint: Chest Pain JACQUELINE: 2 Review of Systems All systems reviewed & are unremarkable except as noted in HPI and below Constitutional Constitutional: Denies chills, Denies fever(s) and Denies weakness Cardiovascular Cardiovascular: Reports chest pain and Denies dyspnea Respiratory Respiratory: Denies cough and Denies dyspnea Gastrointestinal Gastrointestinal: Denies nausea and Denies vomiting Genitourinary Genitourinary: Denies dysuria Musculoskeletal Musculoskeletal: Denies joint swelling Integumentary/Breasts Skin/Breast: Denies rash Neurologic Neurologic: Denies weakness Psychiatric Psychiatric: Denies depression PFSH All Active Problems (Updated 04/07/23 @ 05:54 by Guille Burciaga MD) Chest pain (Acute) Epigastric pain (Acute) Therapeutic drug monitoring (Acute) Pneumonia due to COVID-19 virus (Acute) Lumbar spinal stenosis (Acute) Trochanteric bursitis, right hip (Acute) Trochanteric bursitis, left hip (Acute) History of total bilateral knee replacement (Acute) Pt reports: Right TKA 2010 followed by revision 2015 [place] [facility] [place]ary artery disease (Chronic) Atrial fibrillation (Chronic) Medical History Bladder cancer Diabetes DJD (degenerative joint disease) GERD (gastroesophageal reflux disease) HTN (hypertension) Hyperlipemia Migraine Nephrolithiasis Obstructive sleep apnea Prinzmetal variant angina Rotator cuff impingement syndrome of left shoulder Shortness of breath Surgical History History of bladder surgery History of hernia repair History of knee replacement Social History Smoking/Tobacco Use Status: Former Tobacco Use Quit Date: 07/26/84 Tobacco: How many years used: 25 Smoking risk assessment performed?: Yes Alcohol Intake: former Drug use: Never Substance use type: does not use What type of physical activity do you participate in: none Do you feel safe at home: Yes Do you feel safe in your relationship?: Yes Exam Const General: no acute distress Orientation: alert HENMT Head: normal to inspection Ears: external ears normal General nose exam: external nose normal Mouth: moist mucous membranes Eyes General: appearance normal, both eyes and all related structures Neck Neck: normal visual inspection Resp Effort & Inspection: normal respiratory effort and able to speak in complete sentences Auscultation: clear to auscultation bilaterally Cardio Jugular venous pressure: no JVD Rate: regular rate Heart Sounds: no murmurs GI Palpation: soft and tender Skin General skin exam: no rashes or lesions noted Neuro General: patient alert and patient oriented x3 Extrem General: normal to inspection Psych Mental Status: mental status grossly normal Course Vital Signs Vital signs: Vital Signs Temperature 36.7 C 04/07/23 05:29 Pulse 70 04/07/23 05:29 Respiratory Rate 19 04/07/23 05:29 Blood Pressure 160/65 H 04/07/23 05:29 Pulse Oximetry 94 04/07/23 05:29 Temperature 36.7 C 04/07/23 05:29 Temperature Source Oral 04/07/23 05:29 Pulse 70 04/07/23 05:29 Respiratory Rate 19 04/07/23 05:29 Respiratory Effort Normal 04/07/23 05:35 Respiratory Depth Normal 04/07/23 05:35 Respiratory Pattern Normal 04/07/23 05:35 Blood Pressure 160/65 H 04/07/23 05:29 Pulse Oximetry 94 04/07/23 05:29 Oxygen Delivery Method Room Air 04/07/23 05:29 Oxygen Flow Rate 0 04/07/23 05:29
[2023-04-07 05:48] LABS: Abs Immature Grans 0.03 10^3/uL (0.0-0.06); Absolute Basophil Count 0.04 10^3/uL (0.0-0.2); Absolute Eosinophil Count 0.19 10^3/uL (0.0-0.7); Absolute Lymphocyte Count 1.41 10^3/uL (1.2-3.4); Absolute Monocyte Count 0.77 10^3/uL (0.1-0.8); Absolute Neutrophil Count 6.05 10^3/uL (1.2-6.7); Basophils % 0.5; Eosinophils % 2.2; HCT 40.8 % (40.0-50.0); HGB 13.3 g/dL (13.5-17.5); Immature Grans % 0.4; Lymphocytes % 16.6; MCH 29.3 pg (27.0-33.0); MCHC 32.6 % (32.0-36.0); MCV 90 fL (80-95); MPV 9.7 fL (8.0-11.0); Monocytes % 9.1; Neutrophils % 71.2; Platelet Count 173 10^3/uL (130-400); RBC 4.54 10^6/uL (4.36-5.78); RDW 13.4 % (11.8-14.1); WBC 8.49 10^3/uL (4.4-10.8)
[2023-04-07 06:00] LABS: Lipase 58 U/L (16-77)
[2023-04-07 06:07] LABS: Prothrombin Time 9.9 sec (9.3-11.0)
[2023-04-07 06:09] LABS: ALT 22 U/L (16-63); AST 12 U/L (15-37); Albumin 3.3 g/dL (3.4-5.0); Alkaline Phosphatase 160 U/L (46-116); Anion Gap 10.2 mmol/L (3-11); BUN 39 mg/dL (7-18); CO2 26.8 mmol/L (21.0-32.0); CREATININE 1.8 mg/dL (0.70-1.30); Calcium 8.6 mg/dL (8.5-10.1); Chloride 99 mmol/L (98-107); Estimated GFR 38.05 (mL/min/1.73m2); Glucose 353 mg/dL (74-106); Potassium 4.4 mmol/L (3.5-5.1); Sodium 136 mmol/L (136-145); Total Protein 7.3 g/dL (6.4-8.2); Troponin I < 50 ng/L (<or=60)
[2023-04-07] MEDS: Omnipaque 350 MG/ML 100 ML BTL IJ (06:39)
[2023-04-07] MEDS: Normal Saline - Diluent 50 ML VIAL IJ (06:44)
--- NOTE | 2023-04-07 07:55 | DI.VRAD_ITS ---
PROCEDURE INFORMATION: Exam: CTA Chest With Contrast CTA Abdomen and Pelvis With Contrast Exam date and time: 04/07/2023 6:35 AM Age: 77 years old Clinical indication: Abdominal pain; Generalized; Prior surgery; Surgery date: 6+ months; Surgery type: Hernia repair, 1 kidney due to cancer; Patient HX: Chest pain radiating to back TECHNIQUE: Imaging protocol: Computed tomographic angiography of the chest with contrast. Exam focused on the arteries. Computed tomographic angiography of the abdomen and pelvis with contrast. Exam focused on the arteries. 3D rendering (Not supervised by radiologist): MIP and/or 3D reconstructed images were created by the technologist. Radiation optimization: All CT scans at this facility use at least one of these dose optimization techniques: automated exposure control; mA and/or kV adjustment per patient size (includes targeted exams where dose is matched to clinical indication); or iterative reconstruction. Contrast material: OMNIPAQUE 350; Contrast volume: 100 ml; Contrast route: INTRAVENOUS (IV); COMPARISON: Vascular^CTA CAP PE AORTA COMBO (Adult) 03/19/2018 8:17 AM FINDINGS: VASCULATURE: Pulmonary arteries: Normal caliber main pulmonary artery. Aorta: Normal in caliber, without aneurysm or dissection. Mild atherosclerotic vascular calcifications. Normal caliber abdominal aorta. Atherosclerotic mural calcification. Celiac trunk and mesenteric arteries: No occlusion or significant stenosis. Renal arteries: No occlusion or significant stenosis. Right iliac arteries: No occlusion or significant stenosis. Mild atherosclerotic calcifications. Left iliac arteries: No occlusion or significant stenosis. Mild atherosclerotic calcifications. CHEST: Lungs: There are mild dependent hypoventilatory changes bilaterally. The lungs are otherwise clear, without consolidation or mass. The trachea and central main airways are patent and normal in caliber. Pleural spaces: Unremarkable. No pneumothorax. No pleural effusion. Heart: Heart size is normal. There are mild coronary artery calcifications. Mitral annular calcification is also noted. There is a left atrial appendage closure device in place. There is no pericardial effusion. ABDOMEN AND PELVIS: Liver: Hepatic steatosis. The liver is enlarged, measuring 20.7 cm in sagittal length. Gallbladder and bile ducts: The gallbladder is nondilated. Cholelithiasis is noted. There is no intrahepatic or extrahepatic biliary ductal dilation. Pancreas: Unremarkable. Spleen: Unremarkable. The spleen is normal in size. Adrenal glands: The right adrenal gland is surgically absent. There is a 1.2 cm nodule in the left adrenal gland, partially imaged previously, likely an adenoma though formally indeterminate on the basis of this study. Kidneys and ureters: The right kidney is surgically absent. There is no left hydronephrosis or hydroureter. No suspicious mass is seen in the left kidney. There is a 9 mm nonobstructing calculus in the left lower pole. Stomach and bowel: The stomach is nondilated. The small and large bowel are normal in caliber. An enteroenteric anastomosis is noted in the central abdomen near midline. The sigmoid colon is high-riding and redundant. There is minimal colonic diverticulosis without evidence of diverticulitis. Appendix: A nondilated appendix is identified. Intraperitoneal space: No ascites, fluid collection, or pneumoperitoneum. Urinary bladder: Unremarkable. Reproductive: Mildly enlarged prostate gland. Lymph nodes: No pathologically enlarged lymph nodes. Bones/joints: Degenerative changes. Thoracic and lumbar vertebral bodies maintain normal height. No suspicious osseous lesions. Soft tissues: Small wide-mouthed umbilical hernia which contains fat and nonobstructed small bowel. IMPRESSION: 1. No acute abnormality in the chest, abdomen, or pelvis. No aortic dissection or aneurysm. 2. Several incidental/nonemergent findings are discussed in the body of report. Dictated and Authenticated by: Alejandra Cannon MD. Ordering:LYNETTE Han MD
[2023-04-07 09:05] LABS: Troponin I < 50 ng/L (<or=60)
--- NOTE | 2023-04-07 10:21 | ED.PROG_ITS ---
Date of service: 04/07/23 Time of Service: 10:21 Medical Decision Making Care was signed out by Dr. Burciaga, please see his documentation regarding initial ED presentation course. Plan at signout was to follow-up on CT, delta troponin, reassess patient for disposition. Labs reviewed and delta troponin negative. CTA of the thorax, abdomen and pelvis was interpreted by radiology: IMPRESSION: 1. No evidence of aortic dissection, as per request. No evidence of aneurysm. 2. No acute intrathoracic findings. 3. Right kidney and adrenal gland are surgically absent. No abnormal tissue evident in the right renal fossa. 4. Left adrenal nodule which is probably an adenoma as it appears unchanged from 2018 on the lower most images of the chest CT scan at that time. 5. Solitary nonobstructive 8-9 mm calculus in the lower pole left kidney. No hydronephrosis. No abnormality in the urinary bladder. 6. Anterior abdominal wall hernia which contains nonobstructed and non edematous small bowel loops. There also appears to be an enteroenteric anastomosis in the midline abdomen. This appears somewhat dilated although there is no true bowel obstruction evident at this level. Bowel loops above this level are not dilated. Stomach is not distended. 7. No evidence of appendicitis nor diverticulitis. No ascites. Patient was reassessed. He has had no chest pain here while at rest. He does note multiple episodes of exertional chest pain this morning. Patient is high risk by heart score. Plan to hospitalize for continued diagnostics including continued cardiac monitoring, trending troponin and to arrange for cardiac stress testing. Lab Data Lab results reviewed: Yes I reviewed the patient's lab results. Labs: Laboratory Tests Range/Units 04/07/23 04/07/23 04/07/23 05:35 05:35 05:35 WBC (4.4-10.8) 10^3/uL 8.49 RBC (4.36-5.78) 10^6/uL 4.54 Hgb (13.5-17.5) g/dL 13.3 L Hct (40.0-50.0) % 40.8 MCV (80-95) fL 90 MCH (27.0-33.0) pg 29.3 MCHC (32.0-36.0) % 32.6 RDW (11.8-14.1) % 13.4 Plt Count (130-400) 10^3/uL 173 MPV (8.0-11.0) fL 9.7 Immature Gran % 0.4 Neutrophils % 71.2 Lymphocytes % 16.6 Monocytes % 9.1 Eosinophils % 2.2 Basophils % 0.5 Nucleated RBC % (0.0-0.3) % 0.0 Absolute Neutrophils (1.2-6.7) 10^3/uL 6.05 Absolute Lymphocytes (1.2-3.4) 10^3/uL 1.41 Absolute Monocytes (0.1-0.8) 10^3/uL 0.77 Absolute Eosinophils (0.0-0.7) 10^3/uL 0.19 Absolute Basophils (0.0-0.2) 10^3/uL 0.04 PT (9.3-11.0) sec 9.9 INR (0.9-1.1) 1.0 APTT (21.5-31.9) sec 24.0 Sodium (136-145) mmol/L 136 Potassium (3.5-5.1) mmol/L 4.4 Chloride (98-107) mmol/L 99 Carbon Dioxide (21.0-32.0) mmol/L 26.8 Anion Gap (3-11) mmol/L 10.2 BUN (7-18) mg/dL 39 H Creatinine (0.70-1.30) mg/dL 1.8 H Est GFR (CKD-EPI 2020) (mL/min/1.73m2) 38.05 Glucose (74-106) mg/dL 353 H Calcium (8.5-10.1) mg/dL 8.6 Magnesium (1.8-2.4) mg/dL 2.0 Total Bilirubin (0.2-1.0) mg/dL 1.0 AST (15-37) U/L 12 L ALT (16-63) U/L 22 Alkaline Phosphatase (46-116) U/L 160 H Troponin I (<or=60) ng/L < 50 Total Protein (6.4-8.2) g/dL 7.3 Albumin (3.4-5.0) g/dL 3.3 L Lipase (16-77) U/L Range/Units 04/07/23 04/07/23 05:35 08:37 WBC (4.4-10.8) 10^3/uL RBC (4.36-5.78) 10^6/uL Hgb (13.5-17.5) g/dL Hct (40.0-50.0) % MCV (80-95) fL MCH (27.0-33.0) pg MCHC (32.0-36.0) % RDW (11.8-14.1) % Plt Count (130-400) 10^3/uL MPV (8.0-11.0) fL Immature Gran % Neutrophils % Lymphocytes % Monocytes % Eosinophils % Basophils % Nucleated RBC % (0.0-0.3) % Absolute Neutrophils (1.2-6.7) 10^3/uL Absolute Lymphocytes (1.2-3.4) 10^3/uL Absolute Monocytes (0.1-0.8) 10^3/uL Absolute Eosinophils (0.0-0.7) 10^3/uL Absolute Basophils (0.0-0.2) 10^3/uL PT (9.3-11.0) sec INR (0.9-1.1) APTT (21.5-31.9) sec Sodium (136-145) mmol/L Potassium (3.5-5.1) mmol/L Chloride (98-107) mmol/L Carbon Dioxide (21.0-32.0) mmol/L Anion Gap (3-11) mmol/L BUN (7-18) mg/dL Creatinine (0.70-1.30) mg/dL Est GFR (CKD-EPI 2020) (mL/min/1.73m2) Glucose (74-106) mg/dL Calcium (8.5-10.1) mg/dL Magnesium (1.8-2.4) mg/dL Total Bilirubin (0.2-1.0) mg/dL AST (15-37) U/L ALT (16-63) U/L Alkaline Phosphatase (46-116) U/L Troponin I (<or=60) ng/L < 50 Total Protein (6.4-8.2) g/dL Albumin (3.4-5.0) g/dL Lipase (16-77) U/L 58 Sign Out Sign Out Data: Sign Out Comment: extertional chest pressure for about 3 days, none at rest, first troponin negative, pending delta troponin and CTA report. Last updated by Guille Burciaga MD at 04/07/23 07:02 Discharge Plan Disposition Patient Disposition: Admit to [facility] Discharge Details Chief Complaint: Chest Pain Clinical Impression: Chest pain, Adrenal nodule, Kidney stone Primary Care Provider: Lizett Sanchez ED Provider: Pradeep Tavarez Home Meds and New Rx's Prescriptions: No Action magnesium oxide 250 mg magnesium tablet 250 mg PO TID indomethacin 50 mg capsule 50 mg PO BID PRN tramadol 50 mg tablet 50 mg PO Q8H PRN (Reason: pain) Qty: 21 0RF diclofenac sodium 1 % gel 2 gm TP QID pantoprazole 20 mg tablet,delayed release (DR/EC) 20 mg PO DAILY amiodarone 200 mg tablet 200 mg PO DAILY ferrous sulfate 325 mg (65 mg iron) tablet 325 mg PO DAILY cholecalciferol (vitamin D3) 25 mcg (1,000 unit) tablet 25 mcg PO DAILY triamcinolone acetonide 0.1 % cream 1 applic topical BID PRN furosemide 40 mg tablet 40 mg PO DAILY tamsulosin 0.4 mg capsule 0.4 mg PO DAILY polyethylene glycol 3350 17 gram/dose powder 8.5 g PO DAILY PRN insulin glargine [Basaglar KwikPen U-100 Insulin] 100 unit/mL (3 mL) insulin pen 27 unit SC QHS atorvastatin [Lipitor] 40 MG tablet 40 mg PO DAILY sennosides-docusate sodium [Senokot-S] 1 EACH tablet 1 tab PO BID ibuprofen 800 MG tablet 800 mg PO PRN PRN Patient Comments: patient states he only takes Tylenol nitroglycerin [Nitrostat] 0.4 MG tablet, sublingual 0.4 mg Sublingual Q5 MIN PRN X3 PRNQty: 100 0RF finasteride 5 mg Tablet 5 mg PO DAILY
[2023-04-07] MEDS: Enoxaparin 40 MG/0.4 ML SYR SC (14:11)
[2023-04-07 15:37] LABS: Troponin I < 50 ng/L (<or=60)
--- NOTE | 2023-04-07 15:39 | W.PM.HP.N ---
Date of service: 04/07/23 Time of Service: 18:39 Assessment and Plan Assessment and plan (1) Chest pain: Status: Acute Assessment and plan: Chest pain with exertion intermittant for 3d - no chest pain here Monitor trops - so far negative Echo Stress test in am NPO Telemetry IV saline lock NPO @ [place] Continue home meds Enoxaparin VTE prophylaxis Discussed with Dr Crowell (2) Coronary artery disease: Status: Chronic (3) Atrial fibrillation: Status: Chronic History of Present Illness History of Present Illness Chief Complaint: Chest pain Narrative: This is a 77 yo male with hx of afib s/p watchmen procedure, (no anticoagulation) htn, CAD per chart review but he denies having had a prior heart attack or stent/bypass, who presented to the [facility] ED via ems for evaluation of three days of chest pressure with exertion. It resolved when he sat down and stopped exerting himself. The pain intermittently radiated to the epigastric area. No vomiting, no diaphoresis, no dyspnea, denies fevers/chills. In the ED no chest pain, no shortness of breath, did complain of some abdominal pain and was tender in the ruq and epigastric area. EKG nondiagnostic. 77 yo male with hx of afib s/p watchmen procedure, htn, CAD per chart review but he denies having had a prior heart attack or stent/bypass, who comes in with ems with chest pressure. EKG nondiagnostic, labs unremarkable, except glucose 353, creatinine at baseline 1.8, troponin negative x 2. Patient remained chest pain free during ED stay. CTA of the chest: no acute abnormality in the chest, abdomen, or pelvis. No aortic dissection or aneurysm. Of note, several incidental/nonemergent findings are discussed in the body of report. Patient at high risk by heart score, admitted to the medical floor on telemetry for further testing and treatment. Patient is a full code. Review of Systems All systems reviewed & are unremarkable except as noted in HPI and below PFSH All Active Problems (Updated 04/07/23 @ 10:24 by Pradeep Tavarez MD) Chest pain (Acute) Adrenal nodule (Acute) Kidney stone (Chronic) Therapeutic drug monitoring (Acute) Pneumonia due to COVID-19 virus (Acute) Lumbar spinal stenosis (Acute) Trochanteric bursitis, right hip (Acute) Trochanteric bursitis, left hip (Acute) History of total bilateral knee replacement (Acute) Pt reports: Right TKA 2010 followed by revision 2015 [place] [facility] [place]ary artery disease (Chronic) Atrial fibrillation (Chronic) Medical History Bladder cancer Diabetes DJD (degenerative joint disease) GERD (gastroesophageal reflux disease) HTN (hypertension) Hyperlipemia Migraine Nephrolithiasis Obstructive sleep apnea Prinzmetal variant angina Rotator cuff impingement syndrome of left shoulder Shortness of breath Surgical History History of bladder surgery History of hernia repair History of knee replacement Social History Smoking/Tobacco Use Status: Former Tobacco Use Quit Date: 07/26/84 Tobacco: How many years used: 25 Smoking risk assessment performed?: Yes Alcohol Intake: former Drug use: Never Substance use type: does not use Housing: house What type of physical activity do you participate in: none Do you feel safe at home: Yes Do you feel safe in your relationship?: Yes Meds Allergies and Home Medications Allergies Allergy/AdvReac Type Severity Reaction Status Date / Time meperidine [From Demerol] Allergy pedal edema Verified 04/07/23 07:06 Home Medications Medication Instructions Recorded Confirmed Type atorvastatin 40 mg tablet (Lipitor) 40 mg PO DAILY 09/05/15 04/07/23 History sennosides 8.6 mg-docusate sodium 1 tab PO BID 11/25/16 04/07/23 History 50 mg tablet (Senokot-S) nitroglycerin 0.4 mg sublingual 0.4 mg sublingual Q5 MIN PRN X3 08/20/17 04/07/23 Rx tablet (Nitrostat) PRN #100 tabs ibuprofen 800 mg tablet 800 mg PO PRN PRN 08/25/17 10/19/22 History finasteride 5 mg tablet 5 mg PO DAILY 08/06/18 04/07/23 History diclofenac sodium 1 % topical gel 2 gm topical QID 09/27/19 04/07/23 History pantoprazole 20 mg tablet,delayed 20 mg PO DAILY 09/27/19 04/07/23 History release amiodarone 200 mg tablet 200 mg PO DAILY 10/03/19 04/07/23 History indomethacin 50 mg capsule 50 mg PO BID PRN 10/03/19 04/07/23 History magnesium oxide 250 mg PO TID 10/03/19 04/07/23 History tramadol 50 mg tablet 50 mg PO Q8H PRN pain #21 tabs 10/31/20 04/07/23 Rx cholecalciferol (vitamin D3) 25 25 mcg PO DAILY 11/13/20 04/07/23 History mcg (1,000 unit) tablet ferrous sulfate 325 mg (65 mg 325 mg PO DAILY 11/13/20 04/07/23 History iron) tablet furosemide 40 mg tablet 40 mg PO DAILY 04/30/21 04/07/23 History tamsulosin 0.4 mg capsule 0.4 mg PO DAILY 04/30/21 04/07/23 History triamcinolone acetonide 0.1 % 1 applic topical BID PRN 04/30/21 04/07/23 History topical cream polyethylene glycol 3350 17 8.5 g PO DAILY PRN 05/05/21 04/07/23 History gram/dose oral powder insulin glargine 100 unit/mL (3 27 unit subcut QHS 04/21/22 04/07/23 History mL) subcutaneous pen (Basaglar KwikPen U-100 Insulin) Exam Const General: no acute distress Orientation: alert [facility] Head: normal to inspection Ears: external ears normal General nose exam: external nose normal Mouth: moist mucous membranes Eyes General: appearance normal, both eyes and all related structures Neck Neck: normal visual inspection Resp Effort & Inspection: normal respiratory effort and able to speak in complete sentences Auscultation: clear to auscultation bilaterally Cardio Jugular venous pressure: no JVD Rate: regular rate Heart Sounds: no murmurs GI Palpation: soft and tender Skin General skin exam: no rashes or lesions noted Neuro General: patient alert and patient oriented x3 Extrem General: normal to inspection Psych Mental Status: mental status grossly normal Results Labs 04/07/23 05:35 04/07/23 05:35 Labs: Laboratory Results - last 24 hr 04/07/23 04/07/23 04/07/23 05:35 05:35 05:35 WBC 8.49 RBC 4.54 Hgb 13.3 L Hct 40.8 MCV 90 MCH 29.3 MCHC 32.6 RDW 13.4 Plt Count 173 MPV 9.7 Immature Gran % 0.4 Neutrophils % 71.2 Lymphocytes % 16.6 Monocytes % 9.1 Eosinophils % 2.2 Basophils % 0.5 Nucleated RBC % 0.0 Absolute Neutrophils 6.05 Absolute Lymphocytes 1.41 Absolute Monocytes 0.77 Absolute Eosinophils 0.19 Absolute Basophils 0.04 PT 9.9 INR 1.0 APTT 24.0 Sodium 136 Potassium 4.4 Chloride 99 Carbon Dioxide 26.8 Anion Gap 10.2 BUN 39 H Creatinine 1.8 H Est GFR (CKD-EPI 2020) 38.05 Glucose 353 H Calcium 8.6 Magnesium 2.0 Total Bilirubin 1.0 AST 12 L ALT 22 Alkaline Phosphatase 160 H Troponin I < 50 Total Protein 7.3 Albumin 3.3 L Lipase 04/07/23 04/07/23 04/07/23 05:35 08:37 15:13 WBC RBC Hgb Hct MCV MCH MCHC RDW Plt Count MPV Immature Gran % Neutrophils % Lymphocytes % Monocytes % Eosinophils % Basophils % Nucleated RBC % Absolute Neutrophils Absolute Lymphocytes Absolute Monocytes Absolute Eosinophils Absolute Basophils PT INR APTT Sodium Potassium Chloride Carbon Dioxide Anion Gap BUN Creatinine Est GFR (CKD-EPI 2020) Glucose Calcium Magnesium Total Bilirubin AST ALT Alkaline Phosphatase Troponin I < 50 < 50 Total Protein Albumin Lipase 58 Last Vital Signs Temp 35.6 C L 04/07/23 15:16 Pulse 56 L 04/07/23 15:16 Resp 18 04/07/23 15:16 BP 138/79 04/07/23 15:16 Pulse Ox 95 04/07/23 15:16 Time Spent Time spent with Patient: 40-54 minutes Time was spent: preparing to see the patient(eg.review tests), obtaining and/or reviewing separately otained hiistory, ordering medications,tests, procedures, referring, communicating with other health primary care sales representative, indepentently interpreting results, counseling the patient and care coordination
--- NOTE | 2023-04-07 16:30 | RESPIRATORY ---
RT seen pt. for hx. of sleep apnea. Pt. denies having breathing machine and having sleep apnea. Pt. states not using it since six years due to inalterability.
[2023-04-07] MEDS: Insulin Aspart 300 UNITS/3 ML PEN SC (17:09)
[2023-04-07] MEDS: Normal Saline Flush 10 ML SYR IVP (19:19)
[2023-04-07] MEDS: Magnesium Oxide 400 MG TAB 200 MG PO (19:20)
[2023-04-07] MEDS: Sennosides/Docusate Sodium TAB 1 TAB PO (19:20)
[2023-04-07] MEDS: Diclofenac 1% Gel 100 GM TUBE TP (19:21)
--- NOTE | 2023-04-07 19:29 | NUR.NOTE ---
Assessment note. Buprinorphine Patch on 15mg/hr pt has on his left lower rib cage anterior, reports he wants to change it tomorrow. when he goes home. still doing a work up. Nursing Note:
[2023-04-07] MEDS: Insulin Glargine 300 UNITS/3 ML PEN 27 UNITS SC (21:07)
[2023-04-07] MEDS: Acetaminophen 325 MG TAB PO (21:15)
--- NOTE | 2023-04-08 | DI.NM_ITS ---
APPROVED REPORT Exam: Pharmacologic Patient Location: In-Patient Room/Bed: Stress Nurse: Lizette Lewis RN Ordering Provider:SHELLIEOSMAN WATERS, Contact Number: [phone] BMI: 42.18 Baseline Rhythm: Sinus Bradycardia Comment: LBBB Indications: Chest pain Medical History Medical History: SOB, chest pain, adrenal nodule, COVID 19, prinzmetal varient angina, trochanteric b ursitis bilat hips, CAD, afib, hx of falls, diabetes, bladder CA, GERD, HTN, HLD, ANIVAL Cardiac Medications: Atorvastatin, amiodarone, vitamin D, iron, finasteride, furosemide, insulin aspa rt, lantus solostar, magnesium oxide, nitro, pantoprazole, tamsulosin, tramadol, indomethacin, Allergies: Meperidine Cardiac Risk Factors: CVD, HTN, diabetes, former smoker, obesity Previous Cardiac Procedures: None Pretest Chest Pain Characteristics: None Exercise History: Sedentary Physical Disabilities: Knees Lung Sounds: Clear to auscultation Heart Sounds: Bradycardia Stress Test Details Test: Pharmacologic stress testing performed using 0.4 mg of regadenoson per 5 mL given IV over 10 s econds. Reason for pharmacologic stress test: LBBB. Nuclear Acquisition: Rest Tc-99m/Stress Tc-99m 1 day Rest Isotope: Tc-99m Sestamibi. Dose: 15.4 Date: 04/08/2023 Injection Time: 1010 Stress Isotope: Tc-99m Sestamibi. Dose: 42.7 Date: 04/08/2023 Injection Time: 1200 HR Resting HR Supine: 51 bpm Max Heart Rate (APMHR): 142.079942 bpm Target HR (85% APMHR): 120.935194 bpm Max HR Achieved: 97 bpm % of APMHR: 68.31 Recovery HR: 62 bpm BP Resting BP Supine: 160/82 mmHg Max BP: 160/88 mmHg Recovery BP: 156/82 mmHg ECG Resting ECG: Sinus Bradycardia, LBBB Ectopy: None Stress ECG: Sinus Rhythm, LBBB ST Change: Nondiagnostic low heart rate Arrhythmia: None Recovery ECG: Sinus Rhythm, LBBB Recovery ST Change: Nondiagnostic low heart rate Recovery Arrhythmia: None Clinical Stress Symptoms: 4/10 chest pain Angina Score: Non-Limiting Rate Pressure Product: 48329 Stress ECG Conclusion 1. Resting electrocardiogram showed left bundle branch block, first-degree AV block 2. Patient underwent testing using pharmacologic stress with regadenoson 3. Electrocardiographic portion of the test was nondiagnostic 4. See MPI report Stress Test Summary STAGE HR BP SpO2 Symptoms NOTES Supine 51 160/82 94 1 min post Lexiscan injection 58 160/88 4/10 chest pain 3 min post Lexiscan injection 71 152/80 6 min post Lexiscan injection 62 156/84 Chest pain resolved MPI Conclusion Myocardial perfusion is normal. There is no ischemia or evidence of prior infarction Ejection fraction is 51% with normal wall motion Radiologist Interpretation Radiologist agrees with Clinical Nurse Occupational Medicine's Interpretation. Radiologist Interpretation by: Conchita Baldwin MD Interpretation Date/Time: 04/08/2023 17:48:30
--- NOTE | 2023-04-08 | DI.US_ITS ---
APPROVED REPORT EXAM: Comprehensive 2D, Doppler, and color-flow Echocardiogram Patient Location: In-Patient Room/Bed: [address] [employer] Analyst: Darby Keyes RDCS (AE) Indications: Chest pain Other Information Study Quality: Fair. Technically limited study due to body habitus. Conclusion Moderate concentric left ventricular hypertrophy. Ejection fraction is 55%. Wall motion is normal Normal right ventricular size and systolic function Both atria are normal in size Aortic valve is sclerotic and trileaflet without stenosis or regurgitation Mitral annular calcification, mild mitral regurgitation Normal tricuspid valve with mild regurgitation. Estimated right ventricular systolic pressure is 35 mmHg Borderline dilated ascending aorta, 3.52 cm Wall motion Left Ventricle The left ventricle is normal size. The left ventricular systolic function is normal. The left ventric ular ejection fraction is within the normal range. Moderate concentric left ventricular hypertrophy. There is normal LV segmental wall motion. There is no ventricular septal defect visualized. LVEF is 5 5%. Right Ventricle The right ventricle is normal size. The right ventricular systolic function is normal. Atria The left atrium size is normal. The right atrium size is normal. The interatrial septum is intact wit h no evidence for an atrial septal defect. Aortic Valve The Aortic valve is sclerotic. Aortic valve is trileaflet. There is no aortic valvular stenosis. No a ortic regurgitation is present. Mitral Valve There is mitral to moderate annular calcification. No evidence of mitral valve stenosis. Mild mitral regurgitation. Tricuspid Valve The tricuspid valve is normal in structure. There is no tricuspid valve stenosis. Mild tricuspid regu rgitation. The RVSP is 35.3 mmHg. Pulmonic Valve The pulmonary valve is normal in structure. There is no pulmonic valvular stenosis. There is no pulmo paula valvular regurgitation. Great Vessels The aortic root is normal in size. The ascending aorta is borderline dilated. Aortic arch is normal i n caliber. IVC is normal in size and collapses >50% with inspiration. Pericardium There is no pericardial effusion. 2D Dimensions IVSD d PLAX 1.41 cm M: 0.6-1.2 Ao Root d 2.96 cm M: 3.1 - 3.7 LVPW d PLAX 1.40 cm M: 0.6 - 1.2 Ao Asc Diam d 3.52 cm M: 2.6 - 3.4 LVID d PLAX 4.70 cm M: 4.2 - 5.8 LVDs 3.32 cm M: 2.5 - 4.0 LV EF Teichholz 56.3 % FS 29.41 % LV EDV (Teich) 102.6 mL LV ESV (Teich) 44.8 mL M-Mode TAPSE 2.85 cm (M/F) >1.7 Auto EF LV EDV A4C 197.4 mL LV EDV A2C 165.2 mL LV EDV BP 191.2 mL LV ESV A4C 89.8 mL LV ESV A2C 73.5 mL LV ESV BP 80.2 mL LVEF(%) A4C 54.5 % LVEF(%) A2C 55.5 % LVEF(%) BP 58.1 % LV SV A4C 107.6 ml LV SV A2C 91.7 ml LV SV BP 111.0 ml LV CO A4C 5.6 L/min LV CO A2C 4.7 L/min LV CO BP 5.1 L/min HR A4C 52.25 BPM HR A2C 50.69 BPM LV EDV Index (BP) LA Volume LA Length A4C 6.7 cm LA Length A2C 6.6 cm LA Area A4C s 28.89 cm2 LA Area A2C s 28.26 cm2 LA Vol A4C A-L 105.07 mL LA Vol A2C A-L 102.21 mL LA Vol Biplane A-L 104.5 mL LA Vol/BSA A4C A-L LA Vol/BSA A2C A-L LA Vol/BSA BP A-L 42.5 mL/m2 LA Vol A4C MOD 97.3 mL LA Vol A2C MOD 94.8 mL LA Vol BP MOD 96.7 mL RA Volume RA Area A4C 14.2 cm2 RA ESV A4C (A-L) 31.6mL RA Vol/BSA A4C A-L RA Length A4C 5.4 cm RA ESV A4C (MOD) 30.2mL LV Diastology MV E' medial 0.056 (>0.07 m/s) MV E Vmax 1.01 (0.4-1.3 m/s) MV E/E' MED 17.89 (<14) MV A Vmax 0.70 (0.4-1.3 m/s) MV E' lateral 0.061 (>0.1 m/s) E/A Ratio 1.4 MV E/E' LAT 16.63 (<14) MV E' Average 0.059 m/s MV E/E'(average) 17.24 Aortic Valve AoV Vmax 1.55 m/s LVOT Vmax 1.08 m/s AoV Peak Grad 9.7 mmHg LVOT Peak Grad 4.6 mmHg AoV Area (Vmax) 2.22 cm2 LVOT VTI 0.258 m AoV VTI 0.404 m LVOT Mean Grad 2.7 mmHg AoV Mean Gui. 1.07 m/s LVOT SV 82.47 mL AoV Mean Grad 5.3 mmHg LVOT Diam s 2.00 cm AoV Area (VTI) 2.04 cm2 Velocity Ratio 0.70 Mitral Valve MV DT 292 (160-240 msec) MV Vmax TIPS 1.07 m/s MV Mean Grad 1.7 (<2mmHg) MV VTI 0.501 m Pulmonary Valve PV Vmax 1.34 (0.5-1.5 m/s) RVOT Vmax 1.08 m/s PV Peak Grad 7.2 mmHg RVOT Peak Gr. 4.7 mmHg PV Mean Gui 0.80 m/s RVOT VTI 0.217 m PV Mean Grad 3.0 mmHg RVOT Mean Gr. 2.2 mmHg Tricuspid Valve RA Pressure 3.00 mmHg TR Vmax 2.84 m/s TV S' 0.12 m/s TR Peak Grad 32.3 mmHg RVSP (TR) 35.3 mmHg
[2023-04-08 03:16] VITALS: BP 150/82; PULSE 58; RESP 18; TEMP 35.6; O2SAT 95
[2023-04-08 07:15] VITALS: BP 126/80; PULSE 54; RESP 18; TEMP 36; O2SAT 94
[2023-04-08 09:15] LABS: Anion Gap 8.7 mmol/L (3-11); BUN 36 mg/dL (7-18); CO2 26.3 mmol/L (21.0-32.0); CREATININE 1.7 mg/dL (0.70-1.30); Chloride 102 mmol/L (98-107); Estimated GFR 40.75 (mL/min/1.73m2); Glucose 197 mg/dL (74-106); Magnesium 2.1 mg/dL (1.8-2.4); Potassium 4.4 mmol/L (3.5-5.1); Sodium 137 mmol/L (136-145)
--- NOTE | 2023-04-08 09:50 | NUR.NOTE ---
Pt refused medication prior to eating, stating it makes him nauseous. NPO since midnight. Requesting medication after eating breakfast. Nursing Note:
[2023-04-08 10:26] LABS: Abs Immature Grans 0.03 10^3/uL (0.0-0.06); Absolute Basophil Count 0.05 10^3/uL (0.0-0.2); Absolute Eosinophil Count 0.28 10^3/uL (0.0-0.7); Absolute Lymphocyte Count 1.45 10^3/uL (1.2-3.4); Absolute Monocyte Count 0.84 10^3/uL (0.1-0.8); Absolute Neutrophil Count 5.32 10^3/uL (1.2-6.7); Basophils % 0.6; Eosinophils % 3.5; HCT 39.7 % (40.0-50.0); HGB 13.2 g/dL (13.5-17.5); Immature Grans % 0.4; Lymphocytes % 18.2; MCH 29.6 pg (27.0-33.0); MCHC 33.2 % (32.0-36.0); MCV 89 fL (80-95); MPV 9.8 fL (8.0-11.0); Monocytes % 10.5; Neutrophils % 66.8; Platelet Count 184 10^3/uL (130-400); RBC 4.46 10^6/uL (4.36-5.78); RDW 13.3 % (11.8-14.1); RDW-SD 43.8 fL; WBC 7.97 10^3/uL (4.4-10.8)
--- NOTE | 2023-04-08 12:09 | INITIAL_ITS ---
Date of service: 04/08/23 Time of Service: 12:10 Care Management Initial Assmt Initial Assessment REASON FOR HOSPITALIZATION:: chest pain PREVIOUS FUNCTIONAL STATUS/SOCIAL/FAMILY SUPPORTS:: Kelvin lives alone in a single family home in [place], [place] He has a son that lives in [place] and another that lives in [place]. Kelvin also has 4 grandchildren and 4 great grandchildren; some live in [place] and some are in [place]. 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 he shared that he loved meeting people all over the country. 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 Kelvin is independent at baseline and does not receive any services. CURRENT FUNCTIONAL STATUS:: Kelvin was sitting up in a chair when CM met with him. He stated that he had completed all of his testing and was waiting to get the results which would determine if he could be discharged. He was very pleasant and shared stories of his trips across country. Kelvin did share that he has Financial [employer] 100% but recently received a bill from [facility]. CM was bale to contact Financial services and get the matter straightened out. Kelvin shared that he has a very limited income and the bill would have been challenging to pay. ADVANCE DIRECTIVES:: On file at [facility]. Monique Will is [facility]. Has patient been provided with info about the portal/API?: Yes Did the patient sign up for the portal?: No CODE STATUS:: Full Code INSURANCE COVERAGE / FINANCIAL ISSUES:: [facility] Medicare replacement plan CURRENT HOME/COMMUNITY SERVICES/EQUIPMENT:: none PRIMARY CARE PHYSICIAN:: Lizett Sanchez POTENTIAL DISCHARGE NEEDS:: follow up with PCP and plan of care PATIENT/FAMILY EDUCATION NEEDS:: Review of discharge instructions, activity, limitations, follow up plan, discuss Ask Me Three TRANSPORTATION:: via private vehicle with family PLAN:: Anticipate Kelvin will be discharged home with no new services. He will follow up with his community providers and plan of care and transport with family. CM will continue to support Adrienne and his discharge planning needs. PFSH All Active Problems (Updated 04/07/23 @ 10:24 by Pradeep Tavarez MD) Chest pain (Acute) Adrenal nodule (Acute) Kidney stone (Chronic) Therapeutic drug monitoring (Acute) Pneumonia due to COVID-19 virus (Acute) Lumbar spinal stenosis (Acute) Trochanteric bursitis, right hip (Acute) Trochanteric bursitis, left hip (Acute) History of total bilateral knee replacement (Acute) Pt reports: Right TKA 2010 followed by revision 2015 [place] [facility] [place]ary artery disease (Chronic) Atrial fibrillation (Chronic) Medical History Bladder cancer Diabetes DJD (degenerative joint disease) GERD (gastroesophageal reflux disease) HTN (hypertension) Hyperlipemia Migraine Nephrolithiasis Obstructive sleep apnea Prinzmetal variant angina Rotator cuff impingement syndrome of left shoulder Shortness of breath Surgical History History of bladder surgery History of hernia repair History of knee replacement Social History Smoking/Tobacco Use Status: Former Tobacco Use Quit Date: 07/26/84 Tobacco: How many years used: 25 Smoking risk assessment performed?: Yes Alcohol Intake: former Drug use: Never Substance use type: does not use Housing: house What type of physical activity do you participate in: none Do you feel safe at home: Yes Do you feel safe in your relationship?: Yes
[2023-04-08] MEDS: Regadenoson 0.4 MG/5 ML SYR IVP (13:52)
[2023-04-08] MEDS: Cholecalciferol (Vitamin D3) 1,000 UNIT TAB 1000 UNITS PO (14:29)
[2023-04-08] MEDS: Finasteride 5 MG TAB PO (14:30)
[2023-04-08] MEDS: Sennosides/Docusate Sodium TAB 1 TAB PO (14:30)
[2023-04-08] MEDS: Ferrous Sulfate 325 MG TAB PO (14:30)
[2023-04-08] MEDS: Atorvastatin 40 MG TAB PO (14:30)
[2023-04-08] MEDS: Tamsulosin 0.4 MG CAPCR PO (14:30)
[2023-04-08] MEDS: Furosemide 40 MG TAB PO (14:30)
[2023-04-08] MEDS: Magnesium Oxide 400 MG TAB 200 MG PO (14:31)
[2023-04-08] MEDS: Amiodarone 200 MG TAB PO (14:31)
[2023-04-08] MEDS: Pantoprazole 20 MG TABCR PO (14:31)
[2023-04-08 15:30] VITALS: BP 149/73; PULSE 63; RESP 18; TEMP 36.1; O2SAT 95
--- NOTE | 2023-04-08 15:40 | W.PM.DS.N ---
Date of service: 04/08/23 Time of Service: 15:41 DS: Diagnosis Discharge Diagnosis (1) Chest pain: Status: Acute (2) Coronary artery disease: Status: Chronic (3) Atrial fibrillation: Status: Chronic Discharge Plan Disposition Patient Disposition: Home Condition: Good Discharge Details Reason For Visit: Chest Pain Admit Date/Time: 04/07/23 10:58 Admit Provider: Oscar Crowell Attending Provider: Oscar Crowell Primary Care Provider: Lizett Sanchez Hospital Course Hospital Course: This is a 77 yo male with hx of afib s/p watchmen procedure, (no anticoagulation) htn, CAD per chart review but he denied having had a prior heart attack or stent/bypass, who presented to the [facility] ED via ems on 04/07 for evaluation of three days of chest pressure with exertion.? It resolved when he sat down and stopped exerting himself. The pain intermittently radiated to the epigastric area. No vomiting, no diaphoresis, no dyspnea, denied fevers/chills. In the ED no chest pain, no shortness of breath, did complain of some abdominal pain and was tender in the ruq and epigastric area. EKG nondiagnostic. Patient was placed on observation status on the medical floor. Patient had an uneventful overnight, no pain, no shortness of breath, third troponin negative. Echocardiogram - Moderate concentric left ventricular hypertrophy.? Ejection fraction is 55%.? Wall motion is normal, Normal right ventricular size and systolic function, Both atria are normal in size, Aortic valve is sclerotic and trileaflet without stenosis or regurgitation, Mitral annular calcification, mild mitral regurgitation, Normal tricuspid valve with mild regurgitation.? Estimated right ventricular systolic pressure is 35 mmHg. Borderline dilated ascending aorta, 3.52 cm. Nuclear stress test negative. CT of the chest showed a very small pericardial effusion (8mm). Liver steatosis, no discrete focal hepatic lesions identified. Right kidney surgically absent. There is a nonobstructive calcuclus in the lower pole of the left kidney evident which measures 8-9 mm. No hydronephrosis. Patient has a midline anterior abdominal wall hernia 6 cm x 4 cm. There is a nodule in the left adrenal gland with measures 1.5 x `.3 cm. Appears unchanged from 2018, and probable adenoma. Right adrenal gland is surgically absent. There are diverticuli in the sigmoid colon, no diverticulitis. Patient was discharged to home, his nitroglycerin was refilled as the bottle he has he stated was old. He was asked to follow up wtih his PCP in 1-2 weeks. His vital signs are stable, he has no chest pain and no shortness of breath. Home Meds and New Rx's Prescriptions: Continued magnesium oxide 250 mg magnesium tablet 250 mg PO TID indomethacin 50 mg capsule 50 mg PO BID PRN tramadol 50 mg tablet 50 mg PO Q8H PRN (Reason: pain) Qty: 21 0RF diclofenac sodium 1 % gel 2 gm TP QID pantoprazole 20 mg tablet,delayed release (DR/EC) 20 mg PO DAILY amiodarone 200 mg tablet 200 mg PO DAILY ferrous sulfate 325 mg (65 mg iron) tablet 325 mg PO DAILY cholecalciferol (vitamin D3) 25 mcg (1,000 unit) tablet 25 mcg PO DAILY triamcinolone acetonide 0.1 % cream 1 applic topical BID PRN furosemide 40 mg tablet 40 mg PO DAILY tamsulosin 0.4 mg capsule 0.4 mg PO DAILY polyethylene glycol 3350 17 gram/dose powder 8.5 g PO DAILY PRN insulin glargine [Basaglar KwikPen U-100 Insulin] 100 unit/mL (3 mL) insulin pen 27 unit SC QHS atorvastatin [Lipitor] 40 MG tablet 40 mg PO DAILY sennosides-docusate sodium [Senokot-S] 1 EACH tablet 1 tab PO BID nitroglycerin [Nitrostat] 0.4 MG tablet, sublingual 0.4 mg Sublingual Q5 MIN PRN X3 PRNQty: 30 0RF finasteride 5 mg Tablet 5 mg PO DAILY Discontinued ibuprofen 800 MG tablet 800 mg PO PRN PRN Patient Comments: patient states he only takes Tylenol Discharge Instructions Instructions: Nitroglycerin (By mouth), Chest Pain (DC) Additional Instructions: Take nitroglycerin 1 tablet under your tongue every 5 minutes Stand Alone Forms: Nursing Discharge Form Referrals: Lizett Sanchez [Primary Care Provider] - (follow up with your PCP in 1-2 weeks) Activity:: Activity as Tolerated Equipment/Supplies:: No Equipment Needed Diet:: Low Sodium Discharge Orders Discharge Orders: Discharge Order (Routine); Ordered 04/08/23 Ordered By: Jaquelin Torres Discharge Data Discharge Date/Time-TO BE ENTERED AT DEPARTURE: 04/08/23 17:38 Discharge Comment: dc home DS: Summary Time Spent with Patient providing and/or coordinating discharge services: Greater than 30 minutes Status at Discharge Functional status at discharge: independent ambulation Overall status at discharge: patient is back to baseline Mental Status: mental status grossly normal Speech and Movement: speech and movement normal Mood: congruent mood Affect: normal affect Exam Const General: no acute distress Orientation: alert HENMT Head: normal to inspection Ears: external ears normal General nose exam: external nose normal Mouth: moist mucous membranes Eyes General: appearance normal, both eyes and all related structures Neck Neck: normal visual inspection Resp Effort & Inspection: normal respiratory effort and able to speak in complete sentences Auscultation: clear to auscultation bilaterally Cardio Jugular venous pressure: no JVD Rate: regular rate Heart Sounds: no murmurs GI Palpation: soft and tender Skin General skin exam: no rashes or lesions noted Neuro General: patient alert and patient oriented x3 Extrem General: normal to inspection Psych Mental Status: mental status grossly normal Speech and Movement: speech and movement normal Mood: congruent mood Affect: normal affect DS: Data Vitals/I&O Vitals and I&O: Vital Signs Temperature 36.1 C L 04/08/23 15:30 Temperature Source Tympanic 04/08/23 15:30 Pulse 63 04/08/23 15:30 Pulse Rhythm Irregular 04/08/23 08:30 Pulse 56 L 04/07/23 11:02 Respiratory Rate 18 04/08/23 15:30 Respiratory Effort Normal 04/08/23 08:30 Respiratory Depth Normal 04/08/23 08:30 Respiratory Pattern Normal 04/08/23 08:30 Blood Pressure 149/73 H 04/08/23 15:30 Blood Pressure Mean 89 04/07/23 11:02 Pulse Oximetry 95 04/08/23 15:30 Oxygen Delivery Method Room Air 04/08/23 15:30 Oxygen Flow Rate 0 04/08/23 15:30 Pain Level 0 04/08/23 15:30 Intake & Output 04/07/23 04/08/23 04/08/23 23:59 11:59 23:59 Intake Total 480 / 480 Balance 480 / 480 Weight 133.81 kg 134.8 kg Intake: IV Oral 480 / 480 Other: Urine Color Yellow Urine Appearance Clear Clear Comment pt reports toileting Data Completed and Pending Labs on day of discharge: Labs from last 24 hours 04/08/23 04/08/23 06:22 06:22 WBC 7.97 RBC 4.46 Hgb 13.2 L Hct 39.7 L MCV 89 MCH 29.6 MCHC 33.2 RDW 13.3 Plt Count 184 MPV 9.8 Immature Gran % 0.4 Neutrophils % 66.8 Lymphocytes % 18.2 Monocytes % 10.5 Eosinophils % 3.5 Basophils % 0.6 Nucleated RBC % 0.0 Absolute Neutrophils 5.32 Absolute Lymphocytes 1.45 Absolute Monocytes 0.84 H Absolute Eosinophils 0.28 Absolute Basophils 0.05 Sodium 137 Potassium 4.4 Chloride 102 Carbon Dioxide 26.3 Anion Gap 8.7 BUN 36 H Creatinine 1.7 H Est GFR (CKD-EPI 2020) 40.75 Glucose 197 H Calcium 9.0 Magnesium 2.1 PFSH All Active Problems (Updated 04/07/23 @ 10:24 by Pradeep Tavarez MD) Chest pain (Acute) Adrenal nodule (Acute) Kidney stone (Chronic) Therapeutic drug monitoring (Acute) Pneumonia due to COVID-19 virus (Acute) Lumbar spinal stenosis (Acute) Trochanteric bursitis, right hip (Acute) Trochanteric bursitis, left hip (Acute) History of total bilateral knee replacement (Acute) Pt reports: Right TKA 2010 followed by revision 2015 Left [place] [facility] [place] Coronary artery disease (Chronic) Atrial fibrillation (Chronic) Medical History Bladder cancer Diabetes DJD (degenerative joint disease) GERD (gastroesophageal reflux disease) HTN (hypertension) Hyperlipemia Migraine Nephrolithiasis Obstructive sleep apnea Prinzmetal variant angina Rotator cuff impingement syndrome of left shoulder Shortness of breath Surgical History History of bladder surgery History of hernia repair History of knee replacement Social History Smoking/Tobacco Use Status: Former Tobacco Use Quit Date: 07/26/84 Tobacco: How many years used: 25 Smoking risk assessment performed?: Yes Alcohol Intake: former Drug use: Never Substance use type: does not use Housing: house What type of physical activity do you participate in: none Do you feel safe at home: Yes Do you feel safe in your relationship?: Yes Time Spent with Patient Time Spent with Patient: 45-69 minutes Time was spent: preparing to see the patient(eg.review tests), ordering medications,tests, procedures, referring, communicating with other health healthcare analyst, indepentently interpreting results, counseling the patient and care coordination
--- NOTE | 2023-04-08 15:42 | W.PM.DS.N ---
Date of service: 04/08/23 Time of Service: 15:42 DS: Diagnosis Discharge Diagnosis (1) Chest pain: Status: Acute (2) Coronary artery disease: Status: Chronic (3) Atrial fibrillation: Status: Chronic Discharge Plan Disposition Patient Disposition: Home Condition: Good Discharge Details Reason For Visit: Chest Pain Admit Date/Time: 04/07/23 10:58 Admit Provider: Oscar Crowell Attending Provider: Oscar Crowell Primary Care Provider: Lizett Sanchez Home Meds and New Rx's Prescriptions: Continued magnesium oxide 250 mg magnesium tablet 250 mg PO TID indomethacin 50 mg capsule 50 mg PO BID PRN tramadol 50 mg tablet 50 mg PO Q8H PRN (Reason: pain) Qty: 21 0RF diclofenac sodium 1 % gel 2 gm TP QID pantoprazole 20 mg tablet,delayed release (DR/EC) 20 mg PO DAILY amiodarone 200 mg tablet 200 mg PO DAILY ferrous sulfate 325 mg (65 mg iron) tablet 325 mg PO DAILY cholecalciferol (vitamin D3) 25 mcg (1,000 unit) tablet 25 mcg PO DAILY triamcinolone acetonide 0.1 % cream 1 applic topical BID PRN furosemide 40 mg tablet 40 mg PO DAILY tamsulosin 0.4 mg capsule 0.4 mg PO DAILY polyethylene glycol 3350 17 gram/dose powder 8.5 g PO DAILY PRN insulin glargine [Basaglar KwikPen U-100 Insulin] 100 unit/mL (3 mL) insulin pen 27 unit SC QHS atorvastatin [Lipitor] 40 MG tablet 40 mg PO DAILY sennosides-docusate sodium [Senokot-S] 1 EACH tablet 1 tab PO BID nitroglycerin [Nitrostat] 0.4 MG tablet, sublingual 0.4 mg Sublingual Q5 MIN PRN X3 PRNQty: 100 0RF finasteride 5 mg Tablet 5 mg PO DAILY Discontinued ibuprofen 800 MG tablet 800 mg PO PRN PRN Patient Comments: patient states he only takes Tylenol Discharge Instructions Instructions: Chest Pain (DC) Referrals: Lizett Sanchez [Primary Care Provider] - (1-2 weeks) Activity:: Activity as Tolerated Equipment/Supplies:: No Equipment Needed Diet:: Low Sodium Discharge Orders Discharge Orders: Discharge Order (Routine); Ordered 04/08/23 Ordered By: Jaquelin Brian DS: Summary Status at Discharge Mental Status: mental status grossly normal Exam Const General: no acute distress Orientation: alert HENMT Head: normal to inspection Ears: external ears normal General nose exam: external nose normal Mouth: moist mucous membranes Eyes General: appearance normal, both eyes and all related structures Neck Neck: normal visual inspection Resp Effort & Inspection: normal respiratory effort and able to speak in complete sentences Auscultation: clear to auscultation bilaterally Cardio Jugular venous pressure: no JVD Rate: regular rate Heart Sounds: no murmurs GI Palpation: soft and tender Skin General skin exam: no rashes or lesions noted Neuro General: patient alert and patient oriented x3 Extrem General: normal to inspection Psych Mental Status: mental status grossly normal DS: Data Vitals/I&O Vitals and I&O: Vital Signs Temperature 36.1 C L 04/08/23 15:30 Temperature Source Tympanic 04/08/23 15:30 Pulse 63 04/08/23 15:30 Pulse Rhythm Irregular 04/08/23 08:30 Pulse 56 L 04/07/23 11:02 Respiratory Rate 18 04/08/23 15:30 Respiratory Effort Normal 04/08/23 08:30 Respiratory Depth Normal 04/08/23 08:30 Respiratory Pattern Normal 04/08/23 08:30 Blood Pressure 149/73 H 04/08/23 15:30 Blood Pressure Mean 89 04/07/23 11:02 Pulse Oximetry 95 04/08/23 15:30 Oxygen Delivery Method Room Air 04/08/23 15:30 Oxygen Flow Rate 0 04/08/23 15:30 Pain Level 0 04/08/23 15:30 Intake & Output 04/07/23 04/08/23 04/08/23 23:59 11:59 23:59 Intake Total 480 / 480 Balance 480 / 480 Weight 133.81 kg 134.8 kg Intake: IV Oral 480 / 480 Other: Urine Color Yellow Urine Appearance Clear Clear Comment pt reports toileting Data Completed and Pending Labs on day of discharge: Labs from last 24 hours 04/08/23 04/08/23 06:22 06:22 WBC 7.97 RBC 4.46 Hgb 13.2 L Hct 39.7 L MCV 89 MCH 29.6 MCHC 33.2 RDW 13.3 Plt Count 184 MPV 9.8 Immature Gran % 0.4 Neutrophils % 66.8 Lymphocytes % 18.2 Monocytes % 10.5 Eosinophils % 3.5 Basophils % 0.6 Nucleated RBC % 0.0 Absolute Neutrophils 5.32 Absolute Lymphocytes 1.45 Absolute Monocytes 0.84 H Absolute Eosinophils 0.28 Absolute Basophils 0.05 Sodium 137 Potassium 4.4 Chloride 102 Carbon Dioxide 26.3 Anion Gap 8.7 BUN 36 H Creatinine 1.7 H Est GFR (CKD-EPI 2020) 40.75 Glucose 197 H Calcium 9.0 Magnesium 2.1 PFSH All Active Problems (Updated 04/07/23 @ 10:24 by Pradeep Tavarez MD) Chest pain (Acute) Adrenal nodule (Acute) Kidney stone (Chronic) Therapeutic drug monitoring (Acute) Pneumonia due to COVID-19 virus (Acute) Lumbar spinal stenosis (Acute) Trochanteric bursitis, right hip (Acute) Trochanteric bursitis, left hip (Acute) History of total bilateral knee replacement (Acute) Pt reports: Right TKA 2010 followed by revision 2014 [place] [facility] [place]ary artery disease (Chronic) Atrial fibrillation (Chronic) Medical History Bladder cancer Diabetes DJD (degenerative joint disease) GERD (gastroesophageal reflux disease) HTN (hypertension) Hyperlipemia Migraine Nephrolithiasis Obstructive sleep apnea Prinzmetal variant angina Rotator cuff impingement syndrome of left shoulder Shortness of breath Surgical History History of bladder surgery History of hernia repair History of knee replacement Social History Smoking/Tobacco Use Status: Former Tobacco Use Quit Date: 07/26/84 Tobacco: How many years used: 25 Smoking risk assessment performed?: Yes Alcohol Intake: former Drug use: Never Substance use type: does not use Housing: house What type of physical activity do you participate in: none Do you feel safe at home: Yes Do you feel safe in your relationship?: Yes
--- NOTE | 2023-04-08 15:51 | CHAPLAIN ---
Kelvin was up in the chair in his room when I visited. He was pleasant and easily engaged in a conversation. He's waiting to hear some test results to see if he'll be staying here or going home. He said he's agreeable to staying here if the hospitalist says he should. 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 Kelvin asked for some custard after our conversation so I checked in with the CC who okayed the custard for Kelvin.
[2023-04-08] MEDS: Insulin Aspart 300 UNITS/3 ML PEN SC (17:11)
== END 2023-04-08 17:38 | disposition home or self-care (01) ==
LOC: ER 10:24 → MS 12:32
PROVIDERS: Emergency Medicine; Nurse Practitioner Family; Admitting Provider Family Medicine; Emergency Provider Student in an Organized Health Care Education/Training Program; PCP Nurse Practitioner Family; Visit Provider Family Medicine
DX: R07.89 Other chest pain (principal); I48.91 Unspecified atrial fibrillation; I25.10 Atherosclerotic heart disease of native coronary artery without angina pectoris; I49.3 Ventricular premature depolarization; I44.7 Left bundle-branch block, unspecified; Z79.899 Other long term (current) drug therapy; Z79.4 Long term (current) use of insulin; I10 Essential (primary) hypertension; R10.13 Epigastric pain; M48.061 Spinal stenosis, lumbar region without neurogenic claudication; Z96.653 Presence of artificial knee joint, bilateral; M70.62 Trochanteric bursitis, left hip; M70.61 Trochanteric bursitis, right hip; E78.5 Hyperlipidemia, unspecified; G43.909 Migraine, unspecified, not intractable, without status migrainosus; G47.33 Obstructive sleep apnea (adult) (pediatric); Z95.818 Presence of other cardiac implants and grafts; N20.0 Calculus of kidney; Z87.891 Personal history of nicotine dependence; I08.1 Rheumatic disorders of both mitral and tricuspid valves; K76.0 Fatty (change of) liver, not elsewhere classified; K57.30 Diverticulosis of large intestine without perforation or abscess without bleeding; E27.8 Other specified disorders of adrenal gland; Z90.5 Acquired absence of kidney; E11.9 Type 2 diabetes mellitus without complications; K21.9 Gastro-esophageal reflux disease without esophagitis
CPT/HCPCS: 36415; 71275; 78452; 80048; 80053; 83690; 93005; 93016; 93018; 93306; 96374; 99285; J1650; 74174; 83735; 84484; 85025; 85610; 85730; 93010; 93017; 99222; 99239; G0378; J2785; J3490

== ENCOUNTER 2023-04-09 11:47 | Emergency (ER) | payer MEDICARE, SELFPAY ==
[2023-04-09] VITALS (30 sets, daily range): BP systolic 119–160; BP diastolic 47–86; PULSE 59–74; RESP 13–24; TEMP 36.9; O2SAT 93–97
--- NOTE | 2023-04-09 11:45 | RT.EKG_ITS ---
APPROVED REPORT Exam: Resting ECG Reason for Exam: Chest pain Patient Location: E HR:69 bpm ECG Measurements Heart Rate 69 AXIS GA 82 P 155 QRSd 155 QRS 84 QT 454 T [id number] QTc 485 Conclusion Sinus or ectopic atrial rhythm...P axis (-45,135) Nonspecific intraventricular conduction delay...QRSd >115mS, not LBBB/RBBB ST elevation secondary to IVCD...Multiple VCG criteria
--- NOTE | 2023-04-09 12:08 | ED.GENADUL_ITS ---
Discharge Plan Disposition Patient Disposition: Home Condition: Stable Discharge Details Clinical Impression: Chest pain, H/O Prinzmetal angina Primary Care Provider: Lizett Sanchez ED Provider: Padmini Jules Home Meds and New Rx's Prescriptions: New amlodipine [Norvasc] 2.5 mg tablet 2.5 mg PO DAILY Qty: 30 0RF Rx Instructions: Please take one tablet by mouth daily as directed. Continued magnesium oxide 250 mg magnesium tablet 250 mg PO TID indomethacin 50 mg capsule 50 mg PO BID PRN tramadol 50 mg tablet 50 mg PO Q8H PRN (Reason: pain) Qty: 21 0RF diclofenac sodium 1 % gel 2 gm TP QID pantoprazole 20 mg tablet,delayed release (DR/EC) 20 mg PO DAILY amiodarone 200 mg tablet 200 mg PO DAILY ferrous sulfate 325 mg (65 mg iron) tablet 325 mg PO DAILY cholecalciferol (vitamin D3) 25 mcg (1,000 unit) tablet 25 mcg PO DAILY triamcinolone acetonide 0.1 % cream 1 applic topical BID PRN furosemide 40 mg tablet 40 mg PO DAILY tamsulosin 0.4 mg capsule 0.4 mg PO DAILY polyethylene glycol 3350 17 gram/dose powder 8.5 g PO DAILY PRN insulin glargine [Basaglar KwikPen U-100 Insulin] 100 unit/mL (3 mL) insulin pen 27 unit SC QHS atorvastatin [Lipitor] 40 MG tablet 40 mg PO DAILY sennosides-docusate sodium [Senokot-S] 1 EACH tablet 1 tab PO BID nitroglycerin [Nitrostat] 0.4 MG tablet, sublingual 0.4 mg Sublingual Q5 MIN PRN X3 PRNQty: 30 0RF finasteride 5 mg Tablet 5 mg PO DAILY Discharge Instructions Instructions: Chest Pain (ED) Additional Instructions: Follow up with primary care provider in 3-5 days. Return to ED sooner if any worsening or concerns. Increase oral fluids. Please take the Norvasc daily as directed. Please follow-up with [facility] cardiology if any return of symptoms or return to the ER. Continue to take your previously prescribed medications as directed and follow the discharge instructions from the hospital. Referrals: [facility] [place] [Outside] - 1 week (Cardiology) Rebecca Muñiz MD [ [facility] STAFF PHYSICIAN] - 2 weeks (If needed) Lizett Sanchez [Primary Care Provider] - 3 days Discharge Data Discharge Date/Time-TO BE ENTERED AT DEPARTURE: 04/09/23 16:50 Medical Decision Making <David Coates NP - Last Filed: 04/10/23 08:23> Patient presenting to the emergency department for chief complaint of chest pain. Patient reports that he was admitted to the hospital a couple days ago for evaluation of chest pain and was discharged yesterday. Yesterday evening around 10 PM while sitting and resting he started having some chest pain. He took 2 nitro which resolved his pain and he was able to go to sleep but pain returned around 3 AM in the morning. Since then he has not taken any further nitro aspirin or other medications and has had continued chest pain that is not resolving. Patient does state some shortness of breath with activity along with some dizziness also with activity only. Patient has past medical history of A- fib, coronary artery disease, hypertension, hyperlipidemia. Physical exam is unremarkable and patient is not diaphoretic, no reproducible chest pain is noted on exam, normal cardiac and respiratory exam. Given patient's return of symptoms will repeat EKG and lab work. We will give patient additional nitro to see if this resolves his pain again. I am concerned for unstable angina. I did review patient's inpatient records and discharge which patient had no concerning findings on echo or stress test for emergent need of intervention at that time. Please see physician interpretation for full interpretation of EKG upon my review patient is in sinus rhythm, has signs of interventricular conduction delay with some ST changes but does not meet acute criteria for STEMI. There is some change noted in lead III and aVL compared to previous EKG but this may be lead placement as EKG otherwise looks unchanged from 1 dated 04/07. We will continue to monitor Pending results patient did have full resolution of chest pain after taking the nitro. Reviewed patient's labs and CBC is unchanged and shows no significant or severe anemia and otherwise is nondiagnostic. CMP does show slightly elevated BUN and creatinine with a GFR of 35 which is slightly decreased from normal, glucose slightly elevated at 339 negative nondetected troponin. All other labs within normal range or otherwise nondiagnostic with no significant change from his previous admission. Did reach out to [facility] cardiology department for request of consult or transfer given patient's recurrent chest pain especially at rest and his cardiac history with overall negative work-up at this time. Patient has a HEART score of 7 placing his risk of MACE at high. Discussed patient case with Mackenzie with [facility] cardiology team. She stated patient had history of Prinzmetal angina and that she felt patient's symptoms were consistent with that. She did review all the records with follow who recommended patient be started on 2.5 of Norvasc daily to see if this helps with patient's symptoms. Patient otherwise to follow-up on an outpatient basis. Did state that we could observe patient again overnight to see if patient had return of chest pain versus DC home if patient remains chest pain-free with low threshold for return. Discussed this with patient and patient is in agreement for going home after observation. After receiving new medication of Norvasc's and returning for any new return of chest pain. Medical Records Medical records reviewed: Yes I reviewed the patient's medical records. <Padmini Jules NP - Last Filed: 04/09/23 16:52> Medical Records Medical records narrative: 1600: Care assumed from provider (Luis E Coates NP) Please see their initial HPI, PE, and documentation. Discussed patient details and case and pending workup and disposition. Patient is hemodynamically stable, and alert and oriented. At the time of signout pending reevaluation at approximately 1700 for chest pain status and blood pressure. Patient has received 2.5 mg of Norvasc. 1629: Patient is chest pain-free at this time and has remained chest pain free, he is requesting to be discharged home. Repeat blood pressure 119/60. I will send patient home with a prescription for 2.5 mg of Norvasc as per cardiology recommendation and close follow-up with Cardiology and PCP, with strict returns if any worsening. This text was generated using [employer]ne[employer] system, please disregard any oddities of phrase or misspellings. HPI <David Coates NP - Last Filed: 04/10/23 08:23> General Mode of arrival: ambulatory . Date/Time Provider Initiated Documentation: 04/09/23 11:50 . Limitations to Documentation: no limitations . Information obtained by: patient, family and RN notes reviewed . History of Present Illness 77 year old M presents to the emergency department with the chief complaint of Chest pain, described as mild, with intensity rated at 2. Quality is described as aching, and is localized to the chest. Patient reports no radiation. Patient started experiencing this hour(s) (14) and it has been constant. No relieving factors improve symptom(s), Movement worsens symptoms . Patient notes no other symptoms.. Patient did receive the following treatments prior to arrival, none Related Data Home Medications Medication Instructions Recorded Confirmed atorvastatin 40 mg tablet (Lipitor) 40 mg PO DAILY 09/05/15 04/07/23 sennosides 8.6 mg-docusate sodium 1 tab PO BID 11/25/16 04/07/23 50 mg tablet (Senokot-S) finasteride 5 mg tablet 5 mg PO DAILY 08/06/18 04/07/23 diclofenac sodium 1 % topical gel 2 gm topical QID 09/27/19 04/07/23 pantoprazole 20 mg tablet,delayed 20 mg PO DAILY 09/27/19 04/07/23 release amiodarone 200 mg tablet 200 mg PO DAILY 10/03/19 04/07/23 indomethacin 50 mg capsule 50 mg PO BID PRN 10/03/19 04/07/23 magnesium oxide 250 mg PO TID 10/03/19 04/07/23 tramadol 50 mg tablet 50 mg PO Q8H PRN pain #21 tabs 10/31/20 04/07/23 cholecalciferol (vitamin D3) 25 25 mcg PO DAILY 11/13/20 04/07/23 mcg (1,000 unit) tablet ferrous sulfate 325 mg (65 mg 325 mg PO DAILY 11/13/20 04/07/23 iron) tablet furosemide 40 mg tablet 40 mg PO DAILY 04/30/21 04/07/23 tamsulosin 0.4 mg capsule 0.4 mg PO DAILY 04/30/21 04/07/23 triamcinolone acetonide 0.1 % 1 applic topical BID PRN 04/30/21 04/07/23 topical cream polyethylene glycol 3350 17 8.5 g PO DAILY PRN 05/05/21 04/07/23 gram/dose oral powder insulin glargine 100 unit/mL (3 27 unit subcut QHS 04/21/22 04/07/23 mL) subcutaneous pen (Danielle Baron U-100 Insulin) nitroglycerin 0.4 mg sublingual 0.4 mg sublingual Q5 MIN PRN X3 04/08/23 tablet (Nitrostat) PRN #30 tabs amlodipine 2.5 mg tablet (Norvasc) 2.5 mg PO DAILY Hypertension #30 04/09/23 tabs Previous Rx's Medication Instructions Recorded tramadol 50 mg tablet 50 mg PO Q8H PRN pain #21 tabs 10/31/20 nitroglycerin 0.4 mg sublingual 0.4 mg sublingual Q5 MIN PRN X3 04/08/23 tablet (Nitrostat) PRN #30 tabs amlodipine 2.5 mg tablet (Norvasc) 2.5 mg PO DAILY Hypertension #30 04/09/23 tabs Allergies Allergy/AdvReac Type Severity Reaction Status Date / Time meperidine [From Demerol] Allergy pedal edema Verified 04/07/23 07:06 General Stated Complaint: Chest Pain JACQUELINE: 2 Review of Systems <David Coates NP - Last Filed: 04/10/23 08:23> Constitutional Constitutional: Denies chills, Denies fever(s) and Denies malaise ENT Ears, Nose, Mouth, and Throat: Reports dizziness Cardiovascular Cardiovascular: Reports as per HPI, Reports chest pain, Denies chest pain with activity, Denies syncope, Denies irregular heart rhythm, Denies palpitations, Reports dyspnea and Reports dyspnea on exertion Respiratory Respiratory: Denies cough, Denies hemoptysis, Reports dyspnea and Reports dyspnea on exertion Gastrointestinal Gastrointestinal: Denies abdominal pain, Denies nausea and Denies vomiting Neurologic Neurologic: Reports dizziness and Denies syncope Psychiatric Psychiatric: Denies anxiety Endocrine Endocrine: Denies cold intolerance, Denies heat intolerance and Denies palpitations PFS <David Coates NP - Last Filed: 04/10/23 08:23> All Active Problems (Updated 04/09/23 @ 16:35 by Padmini Jules NP) Chest pain (Acute) H/O Prinzmetal angina (Acute) Therapeutic drug monitoring (Acute) Pneumonia due to COVID-19 virus (Acute) Lumbar spinal stenosis (Acute) Trochanteric bursitis, right hip (Acute) Trochanteric bursitis, left hip (Acute) History of total bilateral knee replacement (Acute) Pt reports: Right TKA 2010 followed by revision 2015 Left TKA 2015 [facility] Coronary artery disease (Chronic) Atrial fibrillation (Chronic) Medical History Adrenal nodule Bladder cancer Diabetes DJD (degenerative joint disease) GERD (gastroesophageal reflux disease) HTN (hypertension) Hyperlipemia Kidney stone Migraine Nephrolithiasis Obstructive sleep apnea Prinzmetal variant angina Rotator cuff impingement syndrome of left shoulder Shortness of breath Surgical History History of bladder surgery History of hernia repair History of knee replacement Social History Smoking/Tobacco Use Status: Former Tobacco Use Quit Date: 07/26/84 Tobacco: How many years used: 25 Smoking risk assessment performed?: Yes Alcohol Intake: former Drug use: Never Substance use type: does not use Housing: house What type of physical activity do you participate in: none Do you feel safe at home: Yes Do you feel safe in your relationship?: Yes Exam <David Coates NP - Last Filed: 04/10/23 08:23> Const General: cooperative, comfortable, no acute distress, not diaphoretic and not ill appearing Orientation: alert, awake and oriented x3 Limitations: mental status not altered Neck Neck: normal visual inspection, full ROM, trachea midline, supple and no anterior neck swelling Carotids: normal carotid upstroke and no bruits Chest Chest: normal inspection of the chest Resp Effort & Inspection: normal respiratory effort and able to speak in complete sentences Auscultation: clear to auscultation bilaterally Cardio Jugular venous pressure: no JVD Palpation: normal PMI Rate: regular rate Rhythm: regular rhythm Heart Sounds: S1 normal, S2 normal, no click, no gallops, no murmurs and no rubs Bruits: no abdominal aortic bruits and no carotid bruits Pulses: radial pulses present bilaterally 2+ GI Inspection: obesity Palpation: soft, no aortic enlargement, no pulsatile masses and nontender Auscultation: normal bowel sounds Skin General skin exam: no rashes or lesions noted Neuro General: patient alert, patient awake, patient oriented x3, tone normal and moves all extremities Course <David Coates NP - Last Filed: 04/10/23 08:23> Vital Signs Vital signs: Vital Signs Temperature 36.9 C 04/09/23 11:50 Pulse 74 04/09/23 11:50 Respiratory Rate 18 04/09/23 11:50 Blood Pressure 160/84 H 04/09/23 11:50 Pulse Oximetry 94 04/09/23 11:50 Temperature 36.9 C 04/09/23 11:50 Temperature Source Oral 04/09/23 11:50 Pulse 74 04/09/23 11:50 Respiratory Rate 18 04/09/23 11:50 Blood Pressure 160/84 H 04/09/23 11:50 Pulse Oximetry 94 04/09/23 11:50 Oxygen Delivery Method Room Air 04/09/23 11:50 Oxygen Flow Rate 0 04/09/23 11:50 Pain Level 3 04/09/23 11:50 Sign Out <David Coates NP - Last Filed: 04/10/23 08:23> Sign Out Data: Sign Out Comment: Signed out pending 2-hour observation and discharge if no pain or discomfort on Norvasc 2.5 mg daily. Low threshold to return for any new chest pain especially if chest pain returns at rest. Last updated by David Coates NP at 04/09/23 15:41
[2023-04-09 12:14] LABS: Abs Immature Grans 0.04 10^3/uL (0.0-0.06); Absolute Basophil Count 0.05 10^3/uL (0.0-0.2); Absolute Eosinophil Count 0.15 10^3/uL (0.0-0.7); Absolute Lymphocyte Count 1.26 10^3/uL (1.2-3.4); Absolute Monocyte Count 0.83 10^3/uL (0.1-0.8); Absolute Neutrophil Count 6.19 10^3/uL (1.2-6.7); Basophils % 0.6; Eosinophils % 1.8; HCT 40.3 % (40.0-50.0); HGB 13.2 g/dL (13.5-17.5); Immature Grans % 0.5; Lymphocytes % 14.8; MCH 28.8 pg (27.0-33.0); MCHC 32.8 % (32.0-36.0); MCV 88 fL (80-95); MPV 9.8 fL (8.0-11.0); Monocytes % 9.7; Neutrophils % 72.6; Platelet Count 173 10^3/uL (130-400); RBC 4.58 10^6/uL (4.36-5.78); RDW 13.2 % (11.8-14.1); RDW-SD 42.5 fL; WBC 8.52 10^3/uL (4.4-10.8)
[2023-04-09] MEDS: Aspirin 81 MG CHEW 324 MG CH (12:15)
[2023-04-09] MEDS: Normal Saline Flush 10 ML SYR IVP (12:15)
[2023-04-09] MEDS: nitroGLYcerin 0.4 MG TAB SL (12:15)
[2023-04-09 12:32] LABS: ALT 23 U/L (16-63); AST 16 U/L (15-37); Albumin 3.4 g/dL (3.4-5.0); Alkaline Phosphatase 163 U/L (46-116); Anion Gap 9.1 mmol/L (3-11); BUN 37 mg/dL (7-18); Bilirubin, Total 0.7 mg/dL (0.2-1.0); CO2 24.9 mmol/L (21.0-32.0); CREATININE 1.9 mg/dL (0.70-1.30); Calcium 8.8 mg/dL (8.5-10.1); Chloride 100 mmol/L (98-107); Estimated GFR 35.66 (mL/min/1.73m2); Glucose 339 mg/dL (74-106); Magnesium 2.1 mg/dL (1.8-2.4); Potassium 4.6 mmol/L (3.5-5.1); Sodium 134 mmol/L (136-145); Total Protein 7.4 g/dL (6.4-8.2); Troponin I < 50 ng/L (<or=60)
[2023-04-09 13:18] LABS: COVID-19 PCR Negative (Negative); Influenza A PCR Negative (Negative); Influenza B PCR Negative (Negative); RSV PCR Negative (Negative)
[2023-04-09 13:20] LABS: Source Nasopharynx
[2023-04-09 15:03] LABS: Troponin I < 50 ng/L (<or=60)
[2023-04-09] MEDS: amLODIPine 2.5 MG TAB PO (15:30)
== END 2023-04-09 16:50 | disposition home or self-care (01) ==
PROVIDERS: Nurse Practitioner Family; Emergency Provider Registered Nurse Emergency; PCP Nurse Practitioner Family
DX: R07.9 Chest pain, unspecified (principal); R06.02 Shortness of breath; R94.31 Abnormal electrocardiogram [ECG] [EKG]; I48.91 Unspecified atrial fibrillation; I25.10 Atherosclerotic heart disease of native coronary artery without angina pectoris; I10 Essential (primary) hypertension; E78.5 Hyperlipidemia, unspecified; E11.9 Type 2 diabetes mellitus without complications; Z79.4 Long term (current) use of insulin; Z87.891 Personal history of nicotine dependence
CPT/HCPCS: 36415; 80053; 87637; 93005; 99283; 83735; 84484; 85025; 93010; 99284

== ENCOUNTER 2023-04-10 10:15 | Emergency (ER) | payer MEDICARE, SELFPAY ==
[2023-04-10] VITALS (38 sets, daily range): BP systolic 103–146; BP diastolic 40–77; PULSE 53–76; RESP 11–24; TEMP 36.6; O2SAT 92–97
--- NOTE | 2023-04-10 10:15 | RT.EKG_ITS ---
APPROVED REPORT Exam: Resting ECG Reason for Exam: Chest Pain Patient Location: E HR:63 bpm ECG Measurements Heart Rate 63 AXIS VT 257 P -68 QRSd 168 QRS -14 QT 469 T 134 QTc 482 Conclusion Sinus or ectopic atrial rhythm...P axis (-45,135) Prolonged VT interval...VT >220, V-rate 50- 90 Left bundle branch block...QRSd>120, broad/notched R Consider anterolateral infarct...Q >30mS, I aVL V3-V6,I,aVL
[2023-04-10 10:53] LABS: Abs Immature Grans 0.03 10^3/uL (0.0-0.06); Absolute Basophil Count 0.02 10^3/uL (0.0-0.2); Absolute Eosinophil Count 0.21 10^3/uL (0.0-0.7); Absolute Lymphocyte Count 1.25 10^3/uL (1.2-3.4); Absolute Monocyte Count 0.69 10^3/uL (0.1-0.8); Absolute Neutrophil Count 5.68 10^3/uL (1.2-6.7); Basophils % 0.3; Eosinophils % 2.7; HCT 39.5 % (40.0-50.0); HGB 13.1 g/dL (13.5-17.5); Immature Grans % 0.4; Lymphocytes % 15.9; MCH 29.6 pg (27.0-33.0); MCHC 33.2 % (32.0-36.0); MCV 89 fL (80-95); MPV 9.6 fL (8.0-11.0); Monocytes % 8.8; Neutrophils % 71.9; Platelet Count 155 10^3/uL (130-400); RBC 4.43 10^6/uL (4.36-5.78); RDW 13.2 % (11.8-14.1); RDW-SD 43.8 fL; WBC 7.88 10^3/uL (4.4-10.8)
[2023-04-10 11:23] LABS: ALT 27 U/L (16-63); AST 15 U/L (15-37); Albumin 3.3 g/dL (3.4-5.0); Alkaline Phosphatase 166 U/L (46-116); Anion Gap 9.2 mmol/L (3-11); BUN 32 mg/dL (7-18); Bilirubin, Total 0.9 mg/dL (0.2-1.0); CO2 26.8 mmol/L (21.0-32.0); CREATININE 1.8 mg/dL (0.70-1.30); Calcium 8.6 mg/dL (8.5-10.1); Chloride 99 mmol/L (98-107); Estimated GFR 38.05 (mL/min/1.73m2); Glucose 339 mg/dL (74-106); Potassium 4.4 mmol/L (3.5-5.1); Sodium 135 mmol/L (136-145); Total Protein 7.3 g/dL (6.4-8.2); Troponin I < 50 ng/L (<or=60)
--- NOTE | 2023-04-10 11:39 | W.ED.GENAD ---
Discharge Plan Disposition Patient Disposition: Transfer-Acute Inpatient Care Discharge Details Clinical Impression: Unstable angina Primary Care Provider: Lizett Sanchez ED Provider: David Coates Home Meds and New Rx's Prescriptions: No Action magnesium oxide 250 mg magnesium tablet 250 mg PO TID indomethacin 50 mg capsule 50 mg PO BID PRN tramadol 50 mg tablet 50 mg PO Q8H PRN (Reason: pain) Qty: 21 0RF diclofenac sodium 1 % gel 2 gm TP QID pantoprazole 20 mg tablet,delayed release (DR/EC) 20 mg PO DAILY amiodarone 200 mg tablet 200 mg PO DAILY ferrous sulfate 325 mg (65 mg iron) tablet 325 mg PO DAILY cholecalciferol (vitamin D3) 25 mcg (1,000 unit) tablet 25 mcg PO DAILY triamcinolone acetonide 0.1 % cream 1 applic topical BID PRN furosemide 40 mg tablet 40 mg PO DAILY tamsulosin 0.4 mg capsule 0.4 mg PO DAILY polyethylene glycol 3350 17 gram/dose powder 8.5 g PO DAILY PRN insulin glargine [Basaglar KwikPen U-100 Insulin] 100 unit/mL (3 mL) insulin pen 27 unit SC QHS atorvastatin [Lipitor] 40 MG tablet 40 mg PO DAILY sennosides-docusate sodium [Senokot-S] 1 EACH tablet 1 tab PO BID nitroglycerin [Nitrostat] 0.4 MG tablet, sublingual 0.4 mg Sublingual Q5 MIN PRN X3 PRNQty: 30 0RF amlodipine [Norvasc] 2.5 mg tablet 2.5 mg PO DAILY Qty: 30 0RF Rx Instructions: Please take one tablet by mouth daily as directed. finasteride 5 mg Tablet 5 mg PO DAILY Discharge Data Discharge Date/Time-TO BE ENTERED AT DEPARTURE: 04/10/23 14:41 Medical Decision Making Patient presenting to the emergency department for chief complaint of chest pain. 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 Patient has recently been admitted and had stress test and echo and was discharged home with recommendation to follow-up with primary care provider. Then yesterday he returned due to return of chest pain. Spoke with [facility] solar energy engineer who recommended Norvasc as they felt this was his Prinzmetal angina given negative troponins and overall unremarkable stress and echo. There was question of possible different read of stress test based upon [facility] cardiology reading but could not get a reread yesterday. Patient was discharged home yesterday to continue Norvasc but he stated this morning both during activity and rest that he had chest pain that was slightly worse than before. He also stated some dizziness and shortness of breath during the chest pain episode. Did state that pain radiated to right side of chest but denies radiation anywhere else. Patient states he took a nitro prior to coming here. Patient now reports that pain has improved. Physical exam is unremarkable. We will plan on rechecking labs and EKG but I do feel that patient should be transferred to tertiary care center for diagnostic cath given failed outpatient management on multiple occasions. Reviewed patient's labs with her unchanged in any significant form from yesterday and still showing negative troponin. Please see physician interpretation for full interpretation of EKG that does show some mild changes which I noted in lead III but these are nondiagnostic and patient does not meet acute STEMI criteria. Did speak with cardiology Dr. Ellis at [facility] who after discussion of case stated that patient should be transferred for diagnostic cath. She stated that no further interventions were needed unless patient has return of chest pain while resting here and that we should initiate heparin and nitro drip. Patient remained chest pain-free pending bed assignment at [facility]. Patient was transferred with no return of chest pain while at rest here in the emergency department. Patient remained stable at time of transfer Lab Data Lab results reviewed: Yes I reviewed the patient's lab results. HPI General Mode of arrival: ambulatory. Date/Time Provider Initiated Documentation: 04/10/23 10:27. Limitations to Documentation: no limitations. Information obtained by: patient and RN notes reviewed. History of Present Illness 77 year old M presents to the emergency department with the chief complaint of Chest pain, described as mild, moderate and similar to prior episodes, and is localized to the chest. Patient reports no radiation. Patient started experiencing this hour(s) (2) and it has been intermittent and now resolved. Medication improves symptom(s), (Nitro) Movement worsens symptoms . Patient did receive the following treatments prior to arrival, other (Nitro) Related Data Home Medications Medication Instructions Recorded Confirmed atorvastatin 40 mg tablet (Lipitor) 40 mg PO DAILY 09/05/15 04/10/23 sennosides 8.6 mg-docusate sodium 1 tab PO BID 11/25/16 04/10/23 50 mg tablet (Senokot-S) finasteride 5 mg tablet 5 mg PO DAILY 08/06/18 04/10/23 diclofenac sodium 1 % topical gel 2 gm topical QID 09/27/19 04/10/23 pantoprazole 20 mg tablet,delayed 20 mg PO DAILY 09/27/19 04/10/23 release amiodarone 200 mg tablet 200 mg PO DAILY 10/03/19 04/10/23 indomethacin 50 mg capsule 50 mg PO BID PRN 10/03/19 04/10/23 magnesium oxide 250 mg PO TID 10/03/19 04/10/23 tramadol 50 mg tablet 50 mg PO Q8H PRN pain #21 tabs 10/31/20 04/10/23 cholecalciferol (vitamin D3) 25 25 mcg PO DAILY 11/13/20 04/10/23 mcg (1,000 unit) tablet ferrous sulfate 325 mg (65 mg 325 mg PO DAILY 11/13/20 04/10/23 iron) tablet furosemide 40 mg tablet 40 mg PO DAILY 04/30/21 04/10/23 tamsulosin 0.4 mg capsule 0.4 mg PO DAILY 04/30/21 04/10/23 triamcinolone acetonide 0.1 % 1 applic topical BID PRN 04/30/21 04/10/23 topical cream polyethylene glycol 3350 17 8.5 g PO DAILY PRN 05/05/21 04/10/23 gram/dose oral powder insulin glargine 100 unit/mL (3 27 unit subcut QHS 04/21/22 04/10/23 mL) subcutaneous pen (Basaglar KwikPen U-100 Insulin) nitroglycerin 0.4 mg sublingual 0.4 mg sublingual Q5 MIN PRN X3 04/08/23 04/10/23 tablet (Nitrostat) PRN #30 tabs amlodipine 2.5 mg tablet (Norvasc) 2.5 mg PO DAILY Hypertension #30 04/09/23 04/10/23 tabs Previous Rx's Medication Instructions Recorded tramadol 50 mg tablet 50 mg PO Q8H PRN pain #21 tabs 10/31/20 nitroglycerin 0.4 mg sublingual 0.4 mg sublingual Q5 MIN PRN X3 04/08/23 tablet (Nitrostat) PRN #30 tabs amlodipine 2.5 mg tablet (Norvasc) 2.5 mg PO DAILY Hypertension #30 04/09/23 tabs Allergies Allergy/AdvReac Type Severity Reaction Status Date / Time meperidine [From Demerol] Allergy pedal edema Verified 04/10/23 10:24 General Stated Complaint: Chest Pain JACQUELINE: 3 Review of Systems Constitutional Constitutional: Denies chills, Denies fever(s) and Denies malaise ENT Ears, Nose, Mouth, and Throat: Reports dizziness Cardiovascular Cardiovascular: Reports as per HPI, Reports chest pain, Denies chest pain with activity, Denies syncope, Denies irregular heart rhythm, Denies palpitations, Reports dyspnea and Reports dyspnea on exertion Respiratory Respiratory: Denies cough, Denies hemoptysis, Reports dyspnea and Reports dyspnea on exertion Gastrointestinal Gastrointestinal: Denies abdominal pain, Denies nausea and Denies vomiting Neurologic Neurologic: Reports dizziness and Denies syncope Psychiatric Psychiatric: Denies anxiety Endocrine Endocrine: Denies cold intolerance, Denies heat intolerance and Denies palpitations PFSH All Active Problems (Updated 04/10/23 @ 13:32 by David Coates NP) Chest pain (Acute) H/O Prinzmetal angina (Acute) Unstable angina (Acute) Therapeutic drug monitoring (Acute) Pneumonia due to COVID-19 virus (Acute) Lumbar spinal stenosis (Acute) Trochanteric bursitis, right hip (Acute) Trochanteric bursitis, left hip (Acute) History of total bilateral knee replacement (Acute) Pt reports: Right TKA 2010 followed by revision 2015 Left TKA 2015 [facility] Coronary artery disease (Chronic) Atrial fibrillation (Chronic) Medical History Adrenal nodule Bladder cancer Diabetes DJD (degenerative joint disease) GERD (gastroesophageal reflux disease) HTN (hypertension) Hyperlipemia Kidney stone Migraine Nephrolithiasis Obstructive sleep apnea Prinzmetal variant angina Rotator cuff impingement syndrome of left shoulder Shortness of breath Surgical History History of bladder surgery History of hernia repair History of knee replacement Social History Smoking/Tobacco Use Status: Former Tobacco Use Quit Date: 07/26/84 Tobacco: How many years used: 25 Smoking risk assessment performed?: Yes Alcohol Intake: former Drug use: Never Substance use type: does not use Housing: house What type of physical activity do you participate in: none Do you feel safe at home: Yes Do you feel safe in your relationship?: Yes Exam Const General: cooperative, comfortable, no acute distress, not diaphoretic and not ill appearing Orientation: alert, awake and oriented x3 Limitations: mental status not altered Neck Neck: normal visual inspection, full ROM, trachea midline, supple and no anterior neck swelling Carotids: normal carotid upstroke and no bruits Chest Chest: normal inspection of the chest Resp Effort & Inspection: normal respiratory effort and able to speak in complete sentences Auscultation: clear to auscultation bilaterally Cardio Jugular venous pressure: no JVD Palpation: normal PMI Rate: regular rate Rhythm: regular rhythm Heart Sounds: S1 normal, S2 normal, no click, no gallops, no murmurs and no rubs Bruits: no abdominal aortic bruits and no carotid bruits Pulses: radial pulses present bilaterally 2+ GI Inspection: obesity Palpation: soft, no aortic enlargement, no pulsatile masses and nontender Auscultation: normal bowel sounds Skin General skin exam: no rashes or lesions noted Neuro General: patient alert, patient awake, patient oriented x3, tone normal and moves all extremities Course Vital Signs Vital signs: Vital Signs Temperature 36.6 C 04/10/23 10:20 Pulse 64 04/10/23 10:20 Respiratory Rate 18 04/10/23 10:20 Blood Pressure 146/77 H 04/10/23 10:20 Pulse Oximetry 96 04/10/23 10:20 Temperature 36.6 C 04/10/23 10:20 Temperature Source Temporal Artery Scan 04/10/23 10:20 Pulse 60 04/10/23 11:30 Pulse 57 L 04/10/23 11:31 Respiratory Rate 16 04/10/23 11:31 Respiratory Effort Normal 04/10/23 10:51 Respiratory Depth Normal 04/10/23 10:51 Respiratory Pattern Normal 04/10/23 10:51 Blood Pressure 142/51 H 04/10/23 11:30 Blood Pressure Mean 86 04/10/23 11:30 Blood Pressure Position Sitting 04/10/23 10:20 Pulse Oximetry 94 04/10/23 11:31 Oxygen Delivery Method Room Air 04/10/23 10:20 Oxygen Flow Rate 0 04/10/23 10:20 Pain Level 0 04/10/23 10:20 Lab/Test Results Lab/Test Results: Laboratory Tests Range/Units 04/10/23 04/10/23 10:45 10:45 WBC (4.4-10.8) 10^3/uL 7.88 RBC (4.36-5.78) 10^6/uL 4.43 Hgb (13.5-17.5) g/dL 13.1 L Hct (40.0-50.0) % 39.5 L MCV (80-95) fL 89 MCH (27.0-33.0) pg 29.6 MCHC (32.0-36.0) % 33.2 RDW (11.8-14.1) % 13.2 Plt Count (130-400) 10^3/uL 155 MPV (8.0-11.0) fL 9.6 Immature Gran % 0.4 Neutrophils % 71.9 Lymphocytes % 15.9 Monocytes % 8.8 Eosinophils % 2.7 Basophils % 0.3 Nucleated RBC % (0.0-0.3) % 0.0 Absolute Neutrophils (1.2-6.7) 10^3/uL 5.68 Absolute Lymphocytes (1.2-3.4) 10^3/uL 1.25 Absolute Monocytes (0.1-0.8) 10^3/uL 0.69 Absolute Eosinophils (0.0-0.7) 10^3/uL 0.21 Absolute Basophils (0.0-0.2) 10^3/uL 0.02 Sodium (136-145) mmol/L 135 L Potassium (3.5-5.1) mmol/L 4.4 Chloride (98-107) mmol/L 99 Carbon Dioxide (21.0-32.0) mmol/L 26.8 Anion Gap (3-11) mmol/L 9.2 BUN (7-18) mg/dL 32 H Creatinine (0.70-1.30) mg/dL 1.8 H Est GFR (CKD-EPI 2020) (mL/min/1.73m2) 38.05 Glucose (74-106) mg/dL 339 H Calcium (8.5-10.1) mg/dL 8.6 Magnesium (1.8-2.4) mg/dL 2.0 Total Bilirubin (0.2-1.0) mg/dL 0.9 AST (15-37) U/L 15 ALT (16-63) U/L 27 Alkaline Phosphatase (46-116) U/L 166 H Troponin I (<or=60) ng/L < 50 Total Protein (6.4-8.2) g/dL 7.3 Albumin (3.4-5.0) g/dL 3.3 L
[2023-04-10] MEDS: Aspirin 81 MG CHEW 324 MG CH (11:44)
--- NOTE | 2023-04-10 13:49 | NUR.NOTE ---
Report given to Noe CHOWDARY at [facility] Note:
== END 2023-04-10 14:41 | disposition short-term general hospital (02) ==
PROVIDERS: Emergency Provider Nurse Practitioner Family; PCP Nurse Practitioner Family
DX: R07.9 Chest pain, unspecified (principal); I20.1 Angina pectoris with documented spasm; R42 Dizziness and giddiness; I44.7 Left bundle-branch block, unspecified; I10 Essential (primary) hypertension; E78.5 Hyperlipidemia, unspecified
CPT/HCPCS: 80053; 93005; 99285; 83735; 84484; 85025; 93010

== ENCOUNTER 2023-04-18 09:12 | Observation (INO) | payer MEDICARE, SELFPAY ==
[2023-04-18] VITALS (18 sets, daily range): BP systolic 93–145; BP diastolic 16–97; PULSE 55–78; RESP 16–23; TEMP 35.7–36.3; O2SAT 94–97
--- NOTE | 2023-04-18 09:00 | RT.EKG_ITS ---
APPROVED REPORT Exam: Resting ECG Reason for Exam: Chest Pain Patient Location: E HR:68 bpm ECG Measurements Heart Rate 68 AXIS TX 264 P 268 QRSd 173 QRS -5 QT 472 T 126 QTc 503 Conclusion Sinus or ectopic atrial rhythm...P axis (-45,135) Prolonged TX interval...TX >220, V-rate 50- 90 Left bundle branch block.. ST elevation secondary to IVCD...Multiple VCG criteria No ST segment or T wave abnormalities to suggest occlusive [place]
--- NOTE | 2023-04-18 09:15 | DI.RAD_ITS ---
Exam(s) XR PORTABLE CHEST AP EXAM: XR PORTABLE CHEST AP CLINICAL HISTORY: chest pain TECHNIQUE: 2D digital imaging was performed of the chest. One image was obtained. An AP view was ob tained. COMPARISON: CR XR CHEST 2V PA LATERAL from 04/23/2022 FINDINGS: Poor inspiration. MEDIASTINUM: Normal. HEART: Mild cardiomegaly. PULMONARY VASCULATURE: Normal. LUNGS: Clear. PLEURAL SPACE: No pleural effusion or pneumothorax. BONE:Within normal limits for the patient's age. OTHER FINDINGS:Normal. IMPRESSION: No acute pulmonary findings. DATA REPOSITORY: RADIATION DOSE DELIVERED:
[2023-04-18] MEDS: Aspirin 81 MG CHEW 324 MG CH (09:35)
[2023-04-18 09:49] LABS: Abs Immature Grans 0.04 10^3/uL (0.0-0.06); Absolute Basophil Count 0.05 10^3/uL (0.0-0.2); Absolute Eosinophil Count 0.22 10^3/uL (0.0-0.7); Absolute Lymphocyte Count 1.09 10^3/uL (1.2-3.4); Absolute Neutrophil Count 6.14 10^3/uL (1.2-6.7); Basophils % 0.6; Eosinophils % 2.7; HCT 37.2 % (40.0-50.0); HGB 12.3 g/dL (13.5-17.5); Immature Grans % 0.5; Lymphocytes % 13.2; MCH 29.5 pg (27.0-33.0); MCHC 33.1 % (32.0-36.0); MCV 89 fL (80-95); MPV 9.8 fL (8.0-11.0); Monocytes % 8.5; Neutrophils % 74.5; Platelet Count 154 10^3/uL (130-400); RBC 4.17 10^6/uL (4.36-5.78); RDW 13.4 % (11.8-14.1); RDW-SD 43.9 fL; WBC 8.24 10^3/uL (4.4-10.8)
--- NOTE | 2023-04-18 10:05 | DI.VRAD_ITS ---
PROCEDURE INFORMATION: Exam: XR Chest Exam date and time: 04/18/2023 9:52 AM Age: 77 years old Clinical indication: Other: Chest pain TECHNIQUE: Imaging protocol: Radiologic exam of the chest. Views: 1 view. COMPARISON: CT THORAX ABD/PEL CTA 04/07/2023 6:35 AM FINDINGS: Lungs: Unremarkable. No consolidation. Pleural spaces: Unremarkable. No pleural effusion. No pneumothorax. Heart/Mediastinum: Mild cardiomegaly Bones/joints: Unremarkable. IMPRESSION: No acute findings. Dictated and Authenticated by: Clare Nicholson MD. Ordering:DIDIER Cosby MD
[2023-04-18 10:10] LABS: ALT 26 U/L (16-63); AST 18 U/L (15-37); Albumin 3.2 g/dL (3.4-5.0); Alkaline Phosphatase 148 U/L (46-116); Anion Gap 9.3 mmol/L (3-11); BUN 34 mg/dL (7-18); Bilirubin, Total 0.8 mg/dL (0.2-1.0); CO2 24.7 mmol/L (21.0-32.0); CREATININE 2.1 mg/dL (0.70-1.30); Calcium 8.6 mg/dL (8.5-10.1); Chloride 100 mmol/L (98-107); Estimated GFR 31.63 (mL/min/1.73m2); Glucose 448 mg/dL (74-106); NT-proBNP 429 pg/mL (<300); Potassium 4.8 mmol/L (3.5-5.1); Sodium 134 mmol/L (136-145); Total Protein 7.1 g/dL (6.4-8.2); Troponin I < 50 ng/L (<or=60)
--- NOTE | 2023-04-18 10:33 | ED.GENADUL_ITS ---
Discharge Plan Disposition Patient Disposition: Admit to [facility] Condition: Serious Discharge Details Chief Complaint: Chest Pain Clinical Impression: Chest pain Primary Care Provider: Lizett Sanchez ED Provider: Alea Galo Home Meds and New Rx's Prescriptions: No Action diclofenac sodium 1 % gel 2 gm TP BID PRN pantoprazole 20 mg tablet,delayed release (DR/EC) 20 mg PO DAILY amiodarone 200 mg tablet 200 mg PO DAILY cholecalciferol (vitamin D3) 25 mcg (1,000 unit) tablet 25 mcg PO DAILY furosemide 40 mg tablet 80 mg PO DAILY polyethylene glycol 3350 17 gram/dose powder 8.5 g PO DAILY PRN insulin glargine [Basaglar KwikPen U-100 Insulin] 100 unit/mL (3 mL) insulin pen 15 unit SC QHS nitroglycerin [Nitrostat] 0.4 MG tablet, sublingual 0.4 mg Sublingual Q5 MIN PRN X3 PRNQty: 30 0RF amlodipine [Norvasc] 2.5 mg tablet 2.5 mg PO DAILY Qty: 30 0RF Rx Instructions: Please take one tablet by mouth daily as directed. tramadol 50 mg tablet 50 mg PO DAILY PRN (Reason: Chronic knee and back pain) Patient Comments: TAKE ONE TABLET BY MOUTH EVERY DAY NEEDED FOR CHRONIC BACK AND KNEE PAIN Brilinta 90 mg tablet 90 mg PO BID buprenorphine 15 mcg/hour patch weekly 15 mcg topical QWEEK Patient Comments: APPLY 1 PATCH TO THE SKIN ONCE A WEEK FOR CHRONIC KNEE AND BACK PAIN Medical Decision Making 77yo M with hx of Prinzmetal angina, CAD, afib, recent admission to [facility] with coronary stent placed 04/12 presenting for chest pain and shortness of breath. Chest pain resolved on arrival s/p 3 nitro. SOB since Wednesday, persists. Vital signs reassuring on arrival, lungs CTAB with no crackles, wheeze, or rhonchi. -EKG wtih LBBB, Sgarbossa negative, no abnormalities to suggest occlusive SD, no significant changes from prior 04/10/23. -CXR independently reviewed, no focal pneumonia on my view, some interstitial edema, radiology read below -Labs reviewed as below, CBC & CMP reassuring with no actionable abnormalities, Hg and Cr near baseline on [facility] record review. Mild elevation in BNP at 429. Troponin negative x 2. -Bedside echo extremely limited 2/t habitus and positioning, unable to obtain useful IVC view. Not overtly volume overloaded on exam however symptoms consistent with possible CHF and patient on home lasix, will give 40mg IV lasix here. On reassessment remains short of breath, worse with exertion and laying flat. Remains chest pain free. Discussed with [facility] cardiology on-call; advised dc ticagrelor and plavix load 600mg tomorrow with echogardiogram in the morning. Discussed with Dr. Novak [facility] hospitalist; patient accepted to medicine service for further workup and management. Awaiting transfer to the floor. Imaging Data Radiologic Study: Imaging: X-Ray Lab Data Lab results reviewed: Yes I reviewed the patient's lab results. Labs: Laboratory Tests Range/Units 04/18/23 04/18/23 09:35 09:35 WBC (4.4-10.8) 10^3/uL 8.24 RBC (4.36-5.78) 10^6/uL 4.17 L Hgb (13.5-17.5) g/dL 12.3 L Hct (40.0-50.0) % 37.2 L MCV (80-95) fL 89 MCH (27.0-33.0) pg 29.5 MCHC (32.0-36.0) % 33.1 RDW (11.8-14.1) % 13.4 Plt Count (130-400) 10^3/uL 154 MPV (8.0-11.0) fL 9.8 Immature Gran % 0.5 Neutrophils % 74.5 Lymphocytes % 13.2 Monocytes % 8.5 Eosinophils % 2.7 Basophils % 0.6 Nucleated RBC % (0.0-0.3) % 0.0 Absolute Neutrophils (1.2-6.7) 10^3/uL 6.14 Absolute Lymphocytes (1.2-3.4) 10^3/uL 1.09 L Absolute Monocytes (0.1-0.8) 10^3/uL 0.70 Absolute Eosinophils (0.0-0.7) 10^3/uL 0.22 Absolute Basophils (0.0-0.2) 10^3/uL 0.05 Sodium (136-145) mmol/L 134 L Potassium (3.5-5.1) mmol/L 4.8 Chloride (98-107) mmol/L 100 Carbon Dioxide (21.0-32.0) mmol/L 24.7 Anion Gap (3-11) mmol/L 9.3 BUN (7-18) mg/dL 34 H Creatinine (0.70-1.30) mg/dL 2.1 H Est GFR (CKD-EPI 2020) (mL/min/1.73m2) 31.63 Glucose (74-106) mg/dL 448 H Calcium (8.5-10.1) mg/dL 8.6 Magnesium (1.8-2.4) mg/dL 2.0 Total Bilirubin (0.2-1.0) mg/dL 0.8 AST (15-37) U/L 18 ALT (16-63) U/L 26 Alkaline Phosphatase (46-116) U/L 148 H Troponin I (<or=60) ng/L < 50 NT-Pro-B Natriuret Pep (<300) pg/mL 429 H Total Protein (6.4-8.2) g/dL 7.1 Albumin (3.4-5.0) g/dL 3.2 L HPI General Date/Time Provider Initiated Documentation: 04/18/23 09:13 . Limitations to Documentation: no limitations . Information obtained by: patient and old records reviewed . HPI Narrative: 77yo M with hx of Prinzmetal angina, CAD, afib, recent admission to [facility] with coronary stent placed 04/12 presenting for chest pain and shortness of breath. Since Wed has had shortness of breath, worse while laying flat, which has been persistent and worsening. Improved with sitting upright, slightly worse with exertion. Chest pain started this morning around 0200, dull substernal heaviness, that woke him from sleep. Able to fall back asleep, but pain persisted upon reaawakening. Took nitro at 0805, 0810, and 0820; after third dose pain resolved. No chest pain currently. Has been taking all of his medications as prescribed, no missed doses. No pleuritic pain. No new lower extremity edema. He is otherwise in his usual state of health with no fevers, chills, rash, nausea, vomiting, abdominal pain, cough, rhinnorhea, or other concerns. Related Data Home Medications Medication Instructions Recorded Confirmed diclofenac sodium 1 % topical gel 2 gm topical BID PRN 09/27/19 04/18/23 pantoprazole 20 mg tablet,delayed 20 mg PO DAILY 09/27/19 04/18/23 release amiodarone 200 mg tablet 200 mg PO DAILY 10/03/19 04/18/23 cholecalciferol (vitamin D3) 25 25 mcg PO DAILY 11/13/20 04/18/23 mcg (1,000 unit) tablet furosemide 40 mg tablet 80 mg PO DAILY 04/30/21 04/18/23 polyethylene glycol 3350 17 8.5 g PO DAILY PRN 05/05/21 04/18/23 gram/dose oral powder insulin glargine 100 unit/mL (3 15 unit subcut QHS 04/21/22 04/18/23 mL) subcutaneous pen (Basaglar KwikPen U-100 Insulin) nitroglycerin 0.4 mg sublingual 0.4 mg sublingual Q5 MIN PRN X3 04/08/23 04/18/23 tablet (Nitrostat) PRN #30 tabs amlodipine 2.5 mg tablet (Norvasc) 2.5 mg PO DAILY Hypertension #30 04/09/23 04/18/23 tabs buprenorphine 15 mcg/hour weekly 15 mcg topical QWEEK 04/18/23 04/18/23 transdermal patch ticagrelor 90 mg tablet (Brilinta) 90 mg PO BID 04/18/23 04/18/23 tramadol 50 mg tablet 50 mg PO DAILY PRN Chronic knee 04/18/23 04/18/23 and back pain Previous Rx's Medication Instructions Recorded nitroglycerin 0.4 mg sublingual 0.4 mg sublingual Q5 MIN PRN X3 04/08/23 tablet (Nitrostat) PRN #30 tabs amlodipine 2.5 mg tablet (Norvasc) 2.5 mg PO DAILY Hypertension #30 04/09/23 tabs Allergies Allergy/AdvReac Type Severity Reaction Status Date / Time meperidine [From Demerol] Allergy pedal edema Verified 04/18/23 09:24 General Stated Complaint: Chest Pain JACQUELINE: 2 Review of Systems Narrative: see HPI PFSH All Active Problems (Updated 04/18/23 @ 14:42 by Sandee Augustin NP) Shortness of breath (Acute) Chest pain (Acute) H/O Prinzmetal angina (Acute) Unstable angina (Acute) Therapeutic drug monitoring (Acute) Pneumonia due to COVID-19 virus (Acute) Lumbar spinal stenosis (Acute) Trochanteric bursitis, right hip (Acute) Trochanteric bursitis, left hip (Acute) History of total bilateral knee replacement (Acute) Pt reports: Right TKA 2010 followed by revision 2015 Left TKA [address] [facility] Coronary artery disease (Chronic) Atrial fibrillation (Chronic) Medical History Adrenal nodule Bladder cancer Diabetes DJD (degenerative joint disease) GERD (gastroesophageal reflux disease) HTN (hypertension) Hyperlipemia Kidney stone Migraine Nephrolithiasis Obstructive sleep apnea Prinzmetal variant angina Rotator cuff impingement syndrome of left shoulder Shortness of breath Surgical History History of bladder surgery History of hernia repair History of knee replacement Social History Smoking/Tobacco Use Status: Former Tobacco Use Quit Date: 07/26/84 Tobacco: How many years used: 25 Smoking risk assessment performed?: Yes Alcohol Intake: former Drug use: Never Substance use type: does not use Housing: house What type of physical activity do you participate in: none Do you feel safe at home: Yes Do you feel safe in your relationship?: Yes Exam Narrative Exam Narrative: General: Alert, in no acute distress. Head: Normocephalic, atraumatic Neck: Trachea midline, Neck supple. ENT: MMM. No oropharygeal lesions or exudate. Cardiac: RRR, no murmurs appreciated Resp: No respiratory distress. CTAB. Abd: Soft, non-distended, nontender Extremities: No deformities. 1+ edema symmetric BLE. Neurologic: GCS 15. Moves all extremities freely against gravity Course Vital Signs Vital signs: Vital Signs Pulse 70 04/18/23 09:22 Respiratory Rate 16 04/18/23 09:22 Blood Pressure 145/64 H 04/18/23 09:22 Pulse Oximetry 94 04/18/23 09:22 Pulse 70 04/18/23 09:22 Respiratory Rate 16 04/18/23 09:22 Respiratory Effort Normal 04/18/23 09:24 Blood Pressure 145/64 H 04/18/23 09:22 Blood Pressure Position Supine 04/18/23 09:22 Pulse Oximetry 94 04/18/23 09:22 Oxygen Delivery Method Room Air 04/18/23 09:22 Oxygen Flow Rate 0 04/18/23 09:22 Pain Level 1 04/18/23 09:22 Lab/Test Results Lab/Test Results: Laboratory Tests Range/Units 04/18/23 04/18/23 09:35 09:35 WBC (4.4-10.8) 10^3/uL 8.24 RBC (4.36-5.78) 10^6/uL 4.17 L Hgb (13.5-17.5) g/dL 12.3 L Hct (40.0-50.0) % 37.2 L MCV (80-95) fL 89 MCH (27.0-33.0) pg 29.5 MCHC (32.0-36.0) % 33.1 RDW (11.8-14.1) % 13.4 Plt Count (130-400) 10^3/uL 154 MPV (8.0-11.0) fL 9.8 Immature Gran % 0.5 Neutrophils % 74.5 Lymphocytes % 13.2 Monocytes % 8.5 Eosinophils % 2.7 Basophils % 0.6 Nucleated RBC % (0.0-0.3) % 0.0 Absolute Neutrophils (1.2-6.7) 10^3/uL 6.14 Absolute Lymphocytes (1.2-3.4) 10^3/uL 1.09 L Absolute Monocytes (0.1-0.8) 10^3/uL 0.70 Absolute Eosinophils (0.0-0.7) 10^3/uL 0.22 Absolute Basophils (0.0-0.2) 10^3/uL 0.05 Sodium (136-145) mmol/L 134 L Potassium (3.5-5.1) mmol/L 4.8 Chloride (98-107) mmol/L 100 Carbon Dioxide (21.0-32.0) mmol/L 24.7 Anion Gap (3-11) mmol/L 9.3 BUN (7-18) mg/dL 34 H Creatinine (0.70-1.30) mg/dL 2.1 H Est GFR (CKD-EPI 2020) (mL/min/1.73m2) 31.63 Glucose (74-106) mg/dL 448 H Calcium (8.5-10.1) mg/dL 8.6 Magnesium (1.8-2.4) mg/dL 2.0 Total Bilirubin (0.2-1.0) mg/dL 0.8 AST (15-37) U/L 18 ALT (16-63) U/L 26 Alkaline Phosphatase (46-116) U/L 148 H Troponin I (<or=60) ng/L < 50 NT-Pro-B Natriuret Pep (<300) pg/mL 429 H Total Protein (6.4-8.2) g/dL 7.1 Albumin (3.4-5.0) g/dL 3.2 L POCUS Exam (ED) Limited Cardiac Exam DATE OF EXAM: 04/18/23 TIME OF EXAM: 10:15 PROVIDER THAT PERFORMED THE STUDY: Alea Galo IS THIS A REPEAT EXAM DURING THIS ENCOUNTER: no REASON FOR EXAM: Dyspnea VISUALIZED STRUCTURES: Four Chambers, LVOT and Interventricular septum VIEW OBTAINED: Apical 4-Chamber and Parasternal long-axis PERTINENT FINDINGS/IMPRESSION: No pericardial effusion and No RV dilation Did not tolerate exam (Extremely limited exam 2/t body habitus and patient unable to tolerate positioning. Unable to obtain meaningful subxiphoid or IVC view )
[2023-04-18] MEDS: Furosemide 20 MG/2 ML VIAL 40 MG IVP (10:39)
[2023-04-18 13:01] LABS: Troponin I < 50 ng/L (<or=60)
--- NOTE | 2023-04-18 14:35 | HPE_ITS ---
Date of service: 04/18/23 Time of Service: 14:35 Assessment and Plan Assessment and plan (1) Chest pain: Status: Acute Assessment and plan: with history of prinzmetal angina, which is what cardiology thinks is etiology for todays pain relieved with nitro x3, cardiology states stent occlusion unlikely as it is not typically responsive to nitro and with negative troponin x2 and no acute st segment changes therefore unlikely represents angina/ACS will continue to trend troponins and follow on telemetry (2) Shortness of breath: Status: Acute Assessment and plan: thought to be d/t ticagrelor. cardiology recommendations to stop after this evenings dose and plavix load tomorrow with 600 mg then 75 mg daily did receive IV lasix in the ED but not thought to be in fluid overload. BNP 400, lungs clear. will monitor I&O and daily weights (3) Atrial fibrillation: Status: Chronic Assessment and plan: rate controlled. continue home medication and monitor. continue amiodarone. not anticoagulated. (4) Diabetes mellitus type 2 in obese: Status: Acute Assessment and plan: checks blood sugars regularly at home, reports he's been elevated in the 200's more recently check blood sugar ac/hs with sliding scale coverage as needed. will hold lantus tonight to see how he trends. History of Present Illness History of Present Illness Chief Complaint: sob, chest pain Narrative: This is a 77 year old male who underwent a cardiac catheterization with stent placement on 04/12 who presented to the ED with c/o increased shortness of breath and chest pain which resolved with 3 nitroglycerin tabs. He's been short of breath which has been worsening for 4 days. He reports that the shortness of breath has progressively been getting worse he does report some increased lower extremity edema and orthopnea. He states he did not sleep well at all last night and had to get up and sit in the chair. He states he is typically very active and today while packing bags to bring to a clothes drop area he developed pressure across the center of his chest that felt like an elephant sitting on his chest. He reports that this pain was very similar to the pain he previously experienced that resulted in the stent placement although not as luis re. He stopped his activity ultimately took 3 nitroglycerin tabs with resolution of his symptoms. His case was discussed with cardiology at [facility] who recommends echo and switch from ticagrelor to plavix, loading with plavix 600 mg in the morning. his EKG remains unchanged and he's had 2 negative troponins. On arrival to the MedSurg unit he is asymptomatic and feels at his baseline Review of Systems All systems reviewed & are unremarkable except as noted in HPI and below PFSH All Active Problems Diabetes mellitus type 2 in obese (Acute) Shortness of breath (Acute) Chest pain (Acute) H/O Prinzmetal angina (Acute) Unstable angina (Acute) Therapeutic drug monitoring (Acute) Pneumonia due to COVID-19 virus (Acute) Lumbar spinal stenosis (Acute) Trochanteric bursitis, right hip (Acute) Trochanteric bursitis, left hip (Acute) History of total bilateral knee replacement (Acute) Pt reports: Right TKA 2010 followed by revision 2015 Left TKA 2015 [facility] Coronary artery disease (Chronic) Atrial fibrillation (Chronic) Medical History Adrenal nodule Bladder cancer Diabetes DJD (degenerative joint disease) GERD (gastroesophageal reflux disease) HTN (hypertension) Hyperlipemia Kidney stone Migraine Nephrolithiasis Obstructive sleep apnea Prinzmetal variant angina Rotator cuff impingement syndrome of left shoulder Surgical History History of bladder surgery History of hernia repair History of knee replacement Social History Smoking/Tobacco Use Status: Former Tobacco Use Quit Date: 07/26/84 Tobacco: How many years used: 25 Smoking risk assessment performed?: Yes Alcohol Intake: former Drug use: Never Substance use type: does not use Housing: house What type of physical activity do you participate in: none Do you feel safe at home: Yes Do you feel safe in your relationship?: Yes Meds Allergies and Home Medications Allergies Allergy/AdvReac Type Severity Reaction Status Date / Time meperidine [From Demerol] Allergy pedal edema Verified 04/18/23 09:24 Home Medications Medication Instructions Recorded Confirmed Type diclofenac sodium 1 % topical gel 2 gm topical BID PRN 09/27/19 04/18/23 History pantoprazole 20 mg tablet,delayed 20 mg PO DAILY 09/27/19 04/18/23 History release amiodarone 200 mg tablet 200 mg PO DAILY 10/03/19 04/18/23 History cholecalciferol (vitamin D3) 25 25 mcg PO DAILY 11/13/20 04/18/23 History mcg (1,000 unit) tablet furosemide 40 mg tablet 80 mg PO DAILY 04/30/21 04/18/23 History polyethylene glycol 3350 17 8.5 g PO DAILY PRN 05/05/21 04/18/23 History gram/dose oral powder insulin glargine 100 unit/mL (3 15 unit subcut QHS 04/21/22 04/18/23 History mL) subcutaneous pen (Basaglar KwikPen U-100 Insulin) nitroglycerin 0.4 mg sublingual 0.4 mg sublingual Q5 MIN PRN X3 04/08/23 04/18/23 Rx tablet (Nitrostat) PRN #30 tabs amlodipine 2.5 mg tablet (Norvasc) 2.5 mg PO DAILY Hypertension #30 04/09/23 04/18/23 Rx tabs buprenorphine 15 mcg/hour weekly 15 mcg topical QWEEK 04/18/23 04/18/23 History transdermal patch tramadol 50 mg tablet 50 mg PO DAILY PRN Chronic knee 04/18/23 04/18/23 History and back pain clopidogrel 75 mg tablet 75 mg PO DAILY #30 tabs 04/19/23 Rx Exam Const General: cooperative, comfortable and no acute distress Orientation: alert, awake and oriented x3 Neck Neck: normal visual inspection, full ROM and supple Chest Chest: normal inspection of the chest Resp Effort & Inspection: normal respiratory effort and able to speak in complete sentences Auscultation: clear to auscultation bilaterally Cardio Rate: regular rate Rhythm: regular rhythm GI Inspection: obesity Palpation: soft and nontender Auscultation: normal bowel sounds Skin General skin exam: no rashes or lesions noted Neuro General: patient alert, patient awake, patient oriented x3, tone normal and moves all extremities Results Labs 04/18/23 09:35 04/18/23 09:35 Labs: Laboratory Results - last 24 hr 04/18/23 04/18/23 04/18/23 09:35 09:35 12:22 WBC 8.24 RBC 4.17 L Hgb 12.3 L Hct 37.2 L MCV 89 MCH 29.5 MCHC 33.1 RDW 13.4 Plt Count 154 MPV 9.8 Immature Gran % 0.5 Neutrophils % 74.5 Lymphocytes % 13.2 Monocytes % 8.5 Eosinophils % 2.7 Basophils % 0.6 Nucleated RBC % 0.0 Absolute Neutrophils 6.14 Absolute Lymphocytes 1.09 L Absolute Monocytes 0.70 Absolute Eosinophils 0.22 Absolute Basophils 0.05 Sodium 134 L Potassium 4.8 Chloride 100 Carbon Dioxide 24.7 Anion Gap 9.3 BUN 34 H Creatinine 2.1 H Est GFR (CKD-EPI 2020) 31.63 Glucose 448 H Calcium 8.6 Magnesium 2.0 Total Bilirubin 0.8 AST 18 ALT 26 Alkaline Phosphatase 148 H Troponin I < 50 < 50 NT-Pro-B Natriuret Pep 429 H Total Protein 7.1 Albumin 3.2 L Last Vital Signs Pulse 70 04/18/23 09:22 Resp 16 04/18/23 09:22 BP 145/64 H 04/18/23 09:22 Pulse Ox 94 04/18/23 09:22 Time Spent Time spent with Patient: 55-74 minutes Time was spent: preparing to see the patient(eg.review tests), obtaining and/or reviewing separately otained hiistory, ordering medications,tests, procedures, indepentently interpreting results and counseling the patient
[2023-04-18 15:10] LABS: Lab Add On Test DONE
[2023-04-18 15:48] LABS: D-Dimer 769 ng/mlFEU (<500)
[2023-04-18 16:30] LABS: Lab Add On Test DONE
[2023-04-18 16:47] LABS: Hemoglobin A1C 9.1 % (<5.7)
[2023-04-18] MEDS: Ticagrelor 90 MG TAB PO (17:15)
[2023-04-18] MEDS: Insulin Aspart 300 UNITS/3 ML PEN SC (17:44)
[2023-04-18 19:01] LABS: Troponin I < 50 ng/L (<or=60)
[2023-04-18] MEDS: Insulin Glargine 300 UNITS/3 ML PEN 15 UNITS SC (22:29)
[2023-04-19 04:06] VITALS: O2SAT 92
[2023-04-19 06:21] VITALS: BP 127/68; PULSE 58; RESP 18; TEMP 36.6; O2SAT 94
[2023-04-19 07:41] VITALS: BP 124/83; PULSE 60; RESP 18; TEMP 36.1; O2SAT 93
--- NOTE | 2023-04-19 08:14 | DI.US_ITS ---
APPROVED REPORT EXAM: Comprehensive 2D, Doppler, and color-flow Echocardiogram Patient Location: In-Patient Room/Bed: 212 Parts Room Clerk: Redd Herrera RDCS (AE) Indications: sob, chest pain, recent stent placement, limited echo for function Conclusion Moderate concentric left ventricular hypertrophy. Ejection fraction is 60%. Wall motion is normal Normal right ventricular size and systolic function Atria are normal in size Aortic valve is sclerotic There is mitral annular calcification Trivial pericardial effusion Wall motion Left Ventricle The left ventricle is normal size. The left ventricular systolic function is normal. The left ventric ular ejection fraction is within the normal range. Moderate concentric left ventricular hypertrophy. There is normal LV segmental wall motion. LVEF is 60%. Right Ventricle The right ventricle is normal size. Right ventricular systolic function is grossly normal. Atria The left atrium size is normal. The right atrium size is normal. Aortic Valve The Aortic valve is sclerotic. Mitral Valve Moderate mitral annular calcification. Tricuspid Valve The tricuspid valve is normal in structure. Pulmonic Valve The pulmonary valve is normal in structure. Great Vessels IVC is normal in size and collapses >50% with inspiration. Pericardium Trace pericardial effusion. 2D Dimensions IVSD d PLAX 1.64 cm M: 0.6-1.2 LVPW d PLAX 1.64 cm M: 0.6 - 1.2 LVID d PLAX 4.44 cm M: 4.2 - 5.8 LVDs 3.03 cm M: 2.5 - 4.0 LV EF Teichholz 59.7 % FS 31.60 % LV EDV (Teich) 89.4 mL LV ESV (Teich) 36.0 mL Stroke Vol Index (Teich) 21.64 Auto EF LV EDV A4C 177.0 mL LV EDV A2C 104.2 mL LV EDV BP LV ESV A4C 66.9 mL LV ESV A2C 43.1 mL LV ESV BP LVEF(%) A4C 62.2 % LVEF(%) A2C 58.6 % LVEF(%) BP LV SV A4C 110.1 ml LV SV A2C 61.1 ml LV SV BP LV CO A4C 6.4 L/min LV CO A2C 3.0 L/min LV CO BP HR A4C 57.97 BPM HR A2C 49.45 BPM LV EDV Index (BP)
[2023-04-19] MEDS: Clopidogrel 300 MG TAB 600 MG PO (08:54)
[2023-04-19] MEDS: Amiodarone 200 MG TAB PO (08:54)
--- NOTE | 2023-04-19 08:58 | CCONE_ITS ---
Date of service: 04/19/23 Time of Service: 08:58 Assessment and Plan Assessment and plan (1) Shortness of breath: Status: Acute Assessment and plan: I think this most likely is a combination of Brilinta as well as diastolic heart failure. Medication has been changed and he is now on Plavix. His ech ocardiogram shows no change in LV function. He should continue on diuretics follow daily weights and adjust furosemide as necessary (2) Coronary artery disease: Status: Chronic Assessment and plan: Recent RCA stent. No evidence of myocardial necrosis (3) Atrial fibrillation: Status: Chronic Assessment and plan: He is in sinus rhythm on amiodarone. He has had a Watchman procedure for stroke prevention History of Present Illness History of Present Illness Chief Complaint: Shortness of breath and chest heaviness Narrative: This is a 77-year-old man who presented to the hospital with chest heaviness and difficulty breathing. He recently was hospitalized at [facility] with unstable angina. He had cardiac catheterization performed and ended up with a stent to the proximal right coronary artery. He was treated with Brilinta as well as baby aspirin, along with low-dose amlodipine and atorvastatin. Patient was volume overloaded while at [facility] and was given some additional diuresis. This was attributed to IV fluids administered for his cardiac procedure. There was actually discussion as to whether or not he should continue on Brilinta, as that medication can also contribute to shortness of breath. After returning home he did a lot of work around the house, in particular using his arms and loading a car. He noted that he was short of breath and also had chest heaviness. At that point he took nitroglycerin and eventually came to the hospital where volume overload was suspected. Telephone consultation was undertaken with [facility], who recommended stopping the Brilinta and using Plavix instead. This has been done. There is no evidence of acute myocardial infarction. His echocardiogram was just repeated, again shows left ventricular hypertrophy with preserved systolic function. Patient currently sitting in a chair, denies dyspnea, no chest pain. He has a chronic LBBB Review of Systems Cardiovascular Cardiovascular: Reports as per HPI and Reports system reviewed and no additional complaints, except as documented PFSH All Active Problems Diabetes mellitus type 2 in obese (Acute) Shortness of breath (Acute) Chest pain (Acute) H/O Prinzmetal angina (Acute) Unstable angina (Acute) Therapeutic drug monitoring (Acute) Pneumonia due to COVID-19 virus (Acute) Lumbar spinal stenosis (Acute) Trochanteric bursitis, right hip (Acute) Trochanteric bursitis, left hip (Acute) History of total bilateral knee replacement (Acute) Pt reports: Right TKA 2010 followed by revision 2015 Left TKA [address] [facility] [place] Coronary artery disease (Chronic) Atrial fibrillation (Chronic) Medical History Adrenal nodule Bladder cancer Diabetes DJD (degenerative joint disease) GERD (gastroesophageal reflux disease) HTN (hypertension) Hyperlipemia Kidney stone Migraine Nephrolithiasis Obstructive sleep apnea Prinzmetal variant angina Rotator cuff impingement syndrome of left shoulder Surgical History History of bladder surgery History of hernia repair History of knee replacement Social History Smoking/Tobacco Use Status: Former Tobacco Use Quit Date: 07/26/84 Tobacco: How many years used: 25 Smoking risk assessment performed?: Yes Alcohol Intake: former Drug use: Never Substance use type: does not use Housing: house What type of physical activity do you participate in: none Do you feel safe at home: Yes Do you feel safe in your relationship?: Yes Exam Const Other: Obese looks a bit younger than stated age no acute distress Neck Other: Unable to assess JVP carotid pulsations are normal no bruits Chest Other: Increased AP diameter Resp Auscultation: clear to auscultation bilaterally Cardio Other: Heart is regular distant S2 is paradoxic there is a brief systolic ejection quality murmur Extrem Other: No significant edema Results Last Vital Signs Temp 36.1 C L 04/19/23 07:41 Pulse 60 04/19/23 07:41 Resp 18 04/19/23 07:41 BP 124/83 04/19/23 07:41 Pulse Ox 93 04/19/23 07:41 Labs 04/18/23 09:35 04/18/23 09:35 Labs: Laboratory Results - last 24 hr 04/18/23 04/18/23 04/18/23 09:35 09:35 09:35 WBC 8.24 RBC 4.17 L Hgb 12.3 L Hct 37.2 L MCV 89 MCH 29.5 MCHC 33.1 RDW 13.4 Plt Count 154 MPV 9.8 Immature Gran % 0.5 Neutrophils % 74.5 Lymphocytes % 13.2 Monocytes % 8.5 Eosinophils % 2.7 Basophils % 0.6 Nucleated RBC % 0.0 Absolute Neutrophils 6.14 Absolute Lymphocytes 1.09 L Absolute Monocytes 0.70 Absolute Eosinophils 0.22 Absolute Basophils 0.05 D-Dimer Sodium 134 L Potassium 4.8 Chloride 100 Carbon Dioxide 24.7 Anion Gap 9.3 BUN 34 H Creatinine 2.1 H Est GFR (CKD-EPI 2020) 31.63 Glucose 448 H Hemoglobin A1c Calcium 8.6 Magnesium 2.0 Total Bilirubin 0.8 AST 18 ALT 26 Alkaline Phosphatase 148 H Troponin I < 50 NT-Pro-B Natriuret Pep 429 H Total Protein 7.1 Albumin 3.2 L Add-On Test Request DONE 04/18/23 04/18/23 04/18/23 09:35 09:35 09:35 WBC RBC Hgb Hct MCV MCH MCHC RDW Plt Count MPV Immature Gran % Neutrophils % Lymphocytes % Monocytes % Eosinophils % Basophils % Nucleated RBC % Absolute Neutrophils Absolute Lymphocytes Absolute Monocytes Absolute Eosinophils Absolute Basophils D-Dimer 769 H Sodium Potassium Chloride Carbon Dioxide Anion Gap BUN Creatinine Est GFR (CKD-EPI 2020) Glucose Hemoglobin A1c 9.1 H Calcium Magnesium Total Bilirubin AST ALT Alkaline Phosphatase Troponin I NT-Pro-B Natriuret Pep Total Protein Albumin Add-On Test Request DONE 04/18/23 04/18/23 12:22 18:38 WBC RBC Hgb Hct MCV MCH MCHC RDW Plt Count MPV Immature Gran % Neutrophils % Lymphocytes % Monocytes % Eosinophils % Basophils % Nucleated RBC % Absolute Neutrophils Absolute Lymphocytes Absolute Monocytes Absolute Eosinophils Absolute Basophils D-Dimer Sodium Potassium Chloride Carbon Dioxide Anion Gap BUN Creatinine Est GFR (CKD-EPI 2020) Glucose Hemoglobin A1c Calcium Magnesium Total Bilirubin AST ALT Alkaline Phosphatase Troponin I < 50 < 50 NT-Pro-B Natriuret Pep Total Protein Albumin Add-On Test Request
[2023-04-19] MEDS: Pantoprazole 20 MG TABCR PO (09:00)
[2023-04-19] MEDS: Furosemide 40 MG TAB 80 MG PO (09:01)
[2023-04-19] MEDS: Cholecalciferol (Vitamin D3) 1,000 UNIT TAB 1000 UNITS PO (09:02)
[2023-04-19] MEDS: Normal Saline Flush 10 ML SYR IVP ×2 (09:03→12:30)
[2023-04-19] MEDS: Polyethylene Glycol 3350 17 GM PACKET 8.5 GM PO (09:15)
[2023-04-19] MEDS: amLODIPine 2.5 MG TAB PO (09:15)
[2023-04-19] MEDS: Insulin Aspart 300 UNITS/3 ML PEN SC ×2 (09:16→12:32)
--- NOTE | 2023-04-19 09:30 | RESPIRATORY ---
RT discussed history of ANIVAL with patient and if he uses a device or Oxygen. Patient has attempted to use a PAP device two times and is unsuccessful at doing so. Patient currently does not sleep in a bed but instead sleeps in a recliner at night and finds this works for him.
[2023-04-19 11:40] VITALS: BP 136/84; PULSE 60; RESP 18; TEMP 36; O2SAT 94
--- NOTE | 2023-04-19 12:16 | DSE_ITS ---
Date of service: 04/19/23 Time of Service: 12:16 DS: Diagnosis Discharge Diagnosis (1) Shortness of breath: Status: Acute (2) Coronary artery disease: Status: Chronic (3) Atrial fibrillation: Status: Chronic Discharge Plan Disposition Patient Disposition: Home Condition: Stable Discharge Details Reason For Visit: chest pain, sob Admit Date/Time: 04/18/23 14:28 Admit Provider: Rosemarie Novak Attending Provider: Rosemarie Novak Primary Care Provider: Lizett Sanchez Hospital Course Hospital Course: This is a 77-year-old male patient who presented to the emergency department with complaints of chest heaviness and difficulty breathing. He was just released from [facility] after having undergone cardiac catheterization and stent placement in the right proximal RCA. He was discharged on Brilinta and after being at home started developing shortness of breath he states this started 4 days prior to arrival. He states the shortness of breath worsened and on the day of presentation while doing work around the house he developed chest heaviness. He stated this responded to 3 nitro. He presented to the emergency department where he was given IV Lasix and ruled out for an acute myocardial infarction. He remained chest pain-free and hemodynamically stable. Consult with cardiology at [facility] recommended stopping his Brilinta and transitioning him to Plavix. He was seen by cardiology here who is in agreement with this plan. He is safe and ready for discharge to home. Continue all previous meds except for Brilinta has been discontinued add Plavix 75 mg daily. He is discharged home with no new services Home Meds and New Rx's Prescriptions: New clopidogrel 75 mg Tablet 75 mg PO DAILY Qty: 30 0RF Continued diclofenac sodium 1 % gel 2 gm TP BID PRN pantoprazole 20 mg tablet,delayed release (DR/EC) 20 mg PO DAILY amiodarone 200 mg tablet 200 mg PO DAILY cholecalciferol (vitamin D3) 25 mcg (1,000 unit) tablet 25 mcg PO DAILY furosemide 40 mg tablet 80 mg PO DAILY polyethylene glycol 3350 17 gram/dose powder 8.5 g PO DAILY PRN insulin glargine [Basaglar KwikPen U-100 Insulin] 100 unit/mL (3 mL) insulin pen 15 unit SC QHS nitroglycerin [Nitrostat] 0.4 MG tablet, sublingual 0.4 mg Sublingual Q5 MIN PRN X3 PRNQty: 30 0RF amlodipine [Norvasc] 2.5 mg tablet 2.5 mg PO DAILY Qty: 30 0RF Rx Instructions: Please take one tablet by mouth daily as directed. tramadol 50 mg tablet 50 mg PO DAILY PRN (Reason: Chronic knee and back pain) Patient Comments: TAKE ONE TABLET BY MOUTH EVERY DAY NEEDED FOR CHRONIC BACK AND KNEE PAIN buprenorphine 15 mcg/hour patch weekly 15 mcg topical QWEEK Patient Comments: APPLY 1 PATCH TO THE SKIN ONCE A WEEK FOR CHRONIC KNEE AND BACK PAIN Discontinued Brilinta 90 mg tablet 90 mg PO BID Discharge Instructions Instructions: Chest Pain (DC) Stand Alone Forms: Nursing Discharge Form Referrals: Lizett Sanchez [Primary Care Provider] - 04/21/23 (keep scheduled appointment) Activity:: Activity as Tolerated Equipment/Supplies:: No Equipment Needed Diet:: As Tolerated Discharge Orders Discharge Orders: Discharge Order (Routine); Ordered 04/19/23 Ordered By: Sandee Augustin Discharge Data Discharge Date/Time-TO BE ENTERED AT DEPARTURE: 04/19/23 13:16 DS: Summary Time Spent with Patient providing and/or coordinating discharge services: Less than 30 minutes Status at Discharge Functional status at discharge: independent ambulation Overall status at discharge: patient is back to baseline Mental Status: mental status grossly normal Speech and Movement: speech and movement normal Mood: congruent mood Affect: normal affect Exam Const General: cooperative, comfortable and no acute distress Orientation: alert, awake and oriented x3 Neck Neck: normal visual inspection, full ROM and supple Chest Chest: normal inspection of the chest Resp Effort & Inspection: normal respiratory effort and able to speak in complete sentences Auscultation: clear to auscultation bilaterally Cardio Rate: regular rate Rhythm: regular rhythm GI Inspection: obesity Palpation: soft and nontender Auscultation: normal bowel sounds Skin General skin exam: no rashes or lesions noted Neuro General: patient alert, patient awake, patient oriented x3, tone normal and moves all extremities Psych Mental Status: mental status grossly normal Speech and Movement: speech and movement normal Mood: congruent mood Affect: normal affect DS: Data Vitals/I&O Vitals and I&O: Vital Signs Temperature 36.1 C L 04/19/23 07:41 Temperature Source Tympanic 04/19/23 07:41 Pulse 60 04/19/23 07:41 Pulse Rhythm Regular 04/18/23 21:03 Pulse 60 04/18/23 15:07 Respiratory Rate 18 04/19/23 07:41 Respiratory Effort Normal 04/18/23 21:03 Respiratory Depth Normal 04/18/23 21:03 Respiratory Pattern Normal 04/18/23 21:03 Blood Pressure 124/83 04/19/23 07:41 Blood Pressure Mean 44 04/18/23 15:07 Blood Pressure Position Supine 04/18/23 09:22 Pulse Oximetry 93 04/19/23 07:41 Oxygen Delivery Method Room Air 04/19/23 07:41 Oxygen Flow Rate 0 04/19/23 07:41 Pain Level 3 04/18/23 16:22 Comment RN Notified 04/18/23 20:51 Intake & Output 04/18/23 04/19/23 04/19/23 23:59 11:59 23:59 Output Total 300 / 300 Balance -300 / -300 Output: Urine 300 / 300 Other: Urine Color Yellow Urine Appearance Clear Voiding Methods Toilet Data Completed and Pending Labs on day of discharge: Labs from last 24 hours 04/18/23 04/18/23 04/18/23 18:38 12:22 09:35 D-Dimer Hemoglobin A1c 9.1 H Troponin I < 50 < 50 Add-On Test Request 04/18/23 04/18/23 04/18/23 09:35 09:35 09:35 D-Dimer 769 H Hemoglobin A1c Troponin I Add-On Test Request DONE DONE PFSH All Active Problems Diabetes mellitus type 2 in obese (Acute) Shortness of breath (Acute) Chest pain (Acute) H/O Prinzmetal angina (Acute) Unstable angina (Acute) Therapeutic drug monitoring (Acute) Pneumonia due to COVID-19 virus (Acute) Lumbar spinal stenosis (Acute) Trochanteric bursitis, right hip (Acute) Trochanteric bursitis, left hip (Acute) History of total bilateral knee replacement (Acute) Pt reports: Right TKA 2010 followed by revision 2015 Left TKA 2016 [facility] [place] Coronary artery disease (Chronic) Atrial fibrillation (Chronic) Medical History Adrenal nodule Bladder cancer Diabetes DJD (degenerative joint disease) GERD (gastroesophageal reflux disease) HTN (hypertension) Hyperlipemia Kidney stone Migraine Nephrolithiasis Obstructive sleep apnea Prinzmetal variant angina Rotator cuff impingement syndrome of left shoulder Surgical History History of bladder surgery History of hernia repair History of knee replacement Social History Smoking/Tobacco Use Status: Former Tobacco Use Quit Date: 07/26/84 Tobacco: How many years used: 25 Smoking risk assessment performed?: Yes Alcohol Intake: former Drug use: Never Substance use type: does not use Housing: house What type of physical activity do you participate in: none Do you feel safe at home: Yes Do you feel safe in your relationship?: Yes Time Spent with Patient Time Spent with Patient: <45 minutes Time was spent: preparing to see the patient(eg.review tests), ordering medications,tests, procedures, referring, communicating with other health primary care coordinator, indepentently interpreting results and counseling the patient
[2023-04-19] MEDS: Insulin Glargine 300 UNITS/3 ML PEN 10 UNITS SC (12:58)
--- NOTE | 2023-04-19 13:11 | W.INDIABCONS ---
Date of service: 04/19/23 Time of Service: 13:11 Diabetes Inpatient Consult Reason for Visit: routine consult = diabetes education DESCRIPTION/ASSESSMENT: Visited Kelvin and his sig other for diabetes education consult. They live separately and Kelvin states he does all the meal prep for himself at home. He has been managing diabetes too long to remember and admits that he goes in cycles of having better control and then taking a back-slide and seeing his A1C go up. Current a1c is up to 9.1% and expressed that it is a good time to get his a1c back down again with more attention to his meal planning and working with provider for the right insulin coverage. He explained he takes lantus at home qPM but states this will change with his discharge today. I offered education in-room but pt rathered to take my contact info and schedule outpatient visit if he can't get it back under control himself. Gave pt my contact number to call for outpatient education and meal planning support when ready INTERVENTION: pt being d/c'd later today. no aggressive nutrition intervention planned while inpatient status PLAN: will await pt to contact if he desires further diabetes education Time Spent in Nutritional Counseling and Treatment: 15 minutes
== END 2023-04-19 13:16 | disposition home or self-care (01) ==
LOC: ER 14:48 → MS 15:27
PROVIDERS: Nurse Practitioner Acute Care; Admitting Provider Internal Medicine; Emergency Provider Student in an Organized Health Care Education/Training Program; PCP Nurse Practitioner Family; Visit Provider Internal Medicine
DX: R07.89 Other chest pain (principal); R06.02 Shortness of breath; I25.10 Atherosclerotic heart disease of native coronary artery without angina pectoris; I48.91 Unspecified atrial fibrillation; E66.9 Obesity, unspecified; Z68.41 Body mass index [BMI] 40.0-44.9, adult; I44.7 Left bundle-branch block, unspecified; R94.31 Abnormal electrocardiogram [ECG] [EKG]; Z79.4 Long term (current) use of insulin; Z79.899 Other long term (current) drug therapy; Z95.5 Presence of coronary angioplasty implant and graft; Z96.653 Presence of artificial knee joint, bilateral; E78.5 Hyperlipidemia, unspecified; G43.909 Migraine, unspecified, not intractable, without status migrainosus; G47.33 Obstructive sleep apnea (adult) (pediatric); K21.9 Gastro-esophageal reflux disease without esophagitis; I10 Essential (primary) hypertension; M70.62 Trochanteric bursitis, left hip; M70.61 Trochanteric bursitis, right hip; M48.061 Spinal stenosis, lumbar region without neurogenic claudication; C67.9 Malignant neoplasm of bladder, unspecified; N20.0 Calculus of kidney
CPT/HCPCS: 36415; 36416; 80053; 82962; 93005; 93306; 96372; 96374; 99285; 71045; 83036; 83735; 83880; 84484; 85025; 85379; 93010; 99223; 99238; G0378; J1941; J3490

== ENCOUNTER → 2023-04-19 07:30 | Outpatient (BNVA) | payer MEDICARE, SELFPAY | PROVIDERS: PCP Nurse Practitioner Family; Referring Provider Nurse Practitioner Family; Visit Provider Internal Medicine Cardiovascular Disease ==

== ENCOUNTER 2023-04-21 11:30 | Outpatient (REF) | payer MEDICARE, SELFPAY ==
[2023-04-21 16:10] LABS: Anion Gap 9.8 mmol/L (3-11); BUN 32 mg/dL (7-18); CO2 27.2 mmol/L (21.0-32.0); CREATININE 2.1 mg/dL (0.70-1.30); Calcium 9.2 mg/dL (8.5-10.1); Chloride 97 mmol/L (98-107); Estimated GFR 31.63 (mL/min/1.73m2); Glucose 241 mg/dL (74-106); Potassium 4.3 mmol/L (3.5-5.1); Sodium 134 mmol/L (136-145)
== END 2023-04-21 11:31 | disposition home or self-care (01) ==
LOC: NCHCN 11:30
PROVIDERS: PCP Nurse Practitioner Family; Visit Provider Nurse Practitioner Family
DX: I10 Essential (primary) hypertension (principal)
CPT/HCPCS: 80048

== ENCOUNTER 2023-04-28 11:09 | Outpatient (REF) | payer MEDICARE, SELFPAY ==
[2023-04-28 16:29] LABS: Anion Gap 7.9 mmol/L (3-11); BUN 26 mg/dL (7-18); CO2 26.1 mmol/L (21.0-32.0); CREATININE 1.8 mg/dL (0.70-1.30); Calcium 8.5 mg/dL (8.5-10.1); Chloride 100 mmol/L (98-107); Estimated GFR 38.05 (mL/min/1.73m2); Glucose 362 mg/dL (74-106); Potassium 4.5 mmol/L (3.5-5.1); Sodium 134 mmol/L (136-145)
== END 2023-04-28 11:10 | disposition home or self-care (01) ==
LOC: NCHCN 11:09
PROVIDERS: PCP Nurse Practitioner Family; Visit Provider Nurse Practitioner Family
DX: N18.32 Chronic kidney disease, stage 3b (principal)
CPT/HCPCS: 80048

== ENCOUNTER 2023-05-21 08:00 | Outpatient (RCR) | payer MEDICARE, SELFPAY | END 2023-05-25 23:59 | disposition home or self-care (01) | LOC: CR 08:00 | PROVIDERS: PCP Nurse Practitioner Family; Visit Provider Internal Medicine Cardiovascular Disease | DX: Z95.5 Presence of coronary angioplasty implant and graft (principal); Z51.89 Encounter for other specified aftercare; I25.10 Atherosclerotic heart disease of native coronary artery without angina pectoris | CPT/HCPCS: S9472 ==

== ENCOUNTER 2023-06-23 08:26 | Outpatient (RCR) | payer MEDICARE, SELFPAY | END 2023-06-24 23:59 | disposition home or self-care (01) | LOC: CR 08:26 | PROVIDERS: PCP Nurse Practitioner Family; Visit Provider Internal Medicine Cardiovascular Disease | DX: Z95.5 Presence of coronary angioplasty implant and graft (principal); Z51.89 Encounter for other specified aftercare | CPT/HCPCS: S9472 ==

== ENCOUNTER 2023-07-23 08:10 | Outpatient (RCR) | payer MEDICARE, SELFPAY | END 2023-07-25 23:59 | disposition home or self-care (01) | LOC: CR 08:10 | PROVIDERS: PCP Nurse Practitioner Family; Visit Provider Internal Medicine Cardiovascular Disease | DX: Z95.5 Presence of coronary angioplasty implant and graft (principal); Z51.89 Encounter for other specified aftercare | CPT/HCPCS: S9472 ==

== ENCOUNTER → 2023-08-06 02:47 | Outpatient (CLI) | payer MEDICARE, SELFPAY ==
--- NOTE | 2023-08-06 | DI.RAD_ITS ---
Exam(s) XR THORACIC SPINE COMPLETE EXAM: XR THORACIC SPINE COMPLETE CLINICAL HISTORY: PAIN THORACIC SPINE,M54.6. TECHNIQUE: 2D digital imaging was performed of the thoracic spine. Three views were obtained. AP, swimmer's and lateral views were obtained. COMPARISON: CR XR CHEST 2V PA LATERAL from 04/23/2022 FINDINGS: BONES: There is no fracture or destructive lesion. Degenerative changes are seen in the spine charact erized by disc space narrowing and osteophytes. DISKS:Alignment is within normal limits. There is disc space narrowing at several levels of the thora cic spine. SOFT TISSUE: Visualized lungs are clear. IMPRESSION: [id number] degenerative changes in the thoracic spine. DATA REPOSITORY: RADIATION DOSE DELIVERED:
== END ==
PROVIDERS: PCP Nurse Practitioner Family; Visit Provider Nurse Practitioner Family
DX: M51.34 Other intervertebral disc degeneration, thoracic region (principal)
CPT/HCPCS: 72072

== ENCOUNTER 2023-08-13 08:00 | Outpatient (RCR) | payer MEDICARE, SELFPAY | END 2023-08-25 23:59 | disposition home or self-care (01) | LOC: CR 08:00 | PROVIDERS: PCP Nurse Practitioner Family; Visit Provider Internal Medicine Cardiovascular Disease | DX: Z95.5 Presence of coronary angioplasty implant and graft (principal); Z51.89 Encounter for other specified aftercare | CPT/HCPCS: S9472 ==

== ENCOUNTER 2023-08-23 18:44 | Outpatient (REF) | payer MEDICARE, SELFPAY ==
[2023-08-23 22:15] LABS: BUN 29 mg/dL (7-18); CREATININE 1.8 mg/dL (0.70-1.30); Calcium 8.8 mg/dL (8.5-10.1); Chloride 105 mmol/L (98-107); Estimated GFR 38.05 (mL/min/1.73m2); Glucose 174 mg/dL (74-106); NT-proBNP 391 pg/mL (<300); Potassium 4.5 mmol/L (3.5-5.1); Sodium 142 mmol/L (136-145)
== END 2023-08-23 18:45 | disposition home or self-care (01) ==
LOC: NCHCN 18:44
PROVIDERS: PCP Nurse Practitioner Family; Visit Provider Nurse Practitioner Family
DX: R06.09 Other forms of dyspnea (principal)
CPT/HCPCS: 80048; 83880

== ENCOUNTER → 2023-08-25 14:07 | Outpatient (CLI) | payer MEDICARE, SELFPAY ==
--- NOTE | 2023-08-25 13:27 | DI.RAD_ITS ---
Exam(s) XR CHEST 2V PA LATERAL EXAM: XR CHEST 2V PA LATERAL CLINICAL HISTORY: CARRERO R06.09 TECHNIQUE: 2D digital imaging was performed of the chest. Two images were obtained. PA and lateral views were obtained. COMPARISON: CR XR PORTABLE CHEST AP from 06/09/2021 CR XR CHEST 2V PA LATERAL from 04/23/2022 CR,XR XR PORTABLE CHEST AP from 04/18/2023 FINDINGS: MEDIASTINUM: Normal. HEART: Stable. PULMONARY VASCULATURE: Stable. LUNGS: Clear. PLEURAL SPACE: No pleural effusion or pneumothorax. BONE:Within normal limits for the patient's age. OTHER FINDINGS:Normal. IMPRESSION: No acute pulmonary findings. DATA REPOSITORY: RADIATION DOSE DELIVERED:
== END ==
PROVIDERS: PCP Nurse Practitioner Family; Visit Provider Nurse Practitioner Family
DX: R06.09 Other forms of dyspnea (principal)
CPT/HCPCS: 71046

== ENCOUNTER → 2023-09-06 09:57 | Outpatient (BNVA) | payer MEDICARE, SELFPAY | PROVIDERS: PCP Nurse Practitioner Family; Referring Provider Nurse Practitioner Family; Visit Provider Physician Assistant Surgical | DX: R06.02 Shortness of breath (principal); G47.33 Obstructive sleep apnea (adult) (pediatric); I42.9 Cardiomyopathy, unspecified; Z87.891 Personal history of nicotine dependence | CPT/HCPCS: 94618; 99215 ==

== ENCOUNTER → 2023-09-08 01:41 | Outpatient (CLI) | payer MEDICARE, SELFPAY ==
--- NOTE | 2023-09-08 | DI.NM_ITS ---
Exam(s) NM LUNG SCAN VENT PERF GRP EXAM: NM LUNG SCAN VENT PERF GRP CLINICAL HISTORY: OTHER FORM OF DYSPNEA,R06.09. TECHNIQUE: Injected Dose: Ventilation: 30 mCi Tc-99m DTPA via inhalation Perfusion: 4 mCi Tc-99m MAA via IV COMPARISON: CT CT THORAX ABD/PEL CTA from 04/07/2023 CR XR CHEST 2V PA LATERAL from 09/08/2023 FINDINGS: Chest X-Ray: Clear lungs. Perfusion: Normal. Ventilation:Moderate clumping of the radiopharmaceutical near the esther. Otherwise normal. IMPRESSION: 1. Low probability VQ examination. . . . Modified PIOPED II criteria Probability Criteria High Two or more segments of V/Q mismatch Low Normal Perfusion, Non segmental perfusion abnormalitie s, pleural effusion in at least 1/3 of pleural cavity with no other defect Radiograph/perfusion matched defect in mid to upper lung confined to segment, one to three small segmental perfusion defects (<25% of segment) Perfusion defect smaller than corresponding radiogra phic lesion. Intermediate All other findings DATA REPOSITORY:
--- NOTE | 2023-09-08 07:43 | DI.RAD_ITS ---
Exam(s) XR CHEST 2V PA LATERAL EXAM: XR CHEST 2V PA LATERAL CLINICAL HISTORY: DYSPNEA ON EXERTION,R06.09 TECHNIQUE: 2D digital imaging was performed. COMPARISON: No exams were available for comparison FINDINGS: HEART: Normal size. Aorta: Not dilated. PULMONARY VASCULATURE: Normal. LUNGS: Clear. PLEURAL SPACE: No pleural effusion or pneumothorax. BONE:Unremarkable for age. Soft tissues: Unremarkable. IMPRESSION: No acute abnormality. DATA REPOSITORY: RADIATION DOSE DELIVERED:
== END ==
PROVIDERS: PCP Nurse Practitioner Family; Visit Provider Family Medicine
DX: R06.09 Other forms of dyspnea (principal)
CPT/HCPCS: 78582; 71046

== ENCOUNTER 2023-09-14 04:41 | Outpatient (CLI) | payer MEDICARE, SELFPAY ==
[2023-09-14] MEDS: Inhaler, Assist Device 1 EACH MC (09:05)
[2023-09-14] MEDS: Levalbuterol HFA 15 GM INH 4 PUFF IH (09:05)
--- NOTE | 2023-09-16 14:04 | W.PFT ---
Date of service: 09/14/23 Time of Service: 07:57 Pulmonary Function Test Result Indications: Dyspnea Interpretation Spirometry: There is no airflow limitation.There is no bronchodilator response. FVC is low. Lung Volumes: Normal lung volumes Diffusion Capacity: Normal diffusion Airway Pressure: Normal airways resistance Impression Normal pulmonary function testing. Low FVC is likely pseudo-restriction from obesity. Clinical Correlation therefore is recommended.
--- NOTE | 2023-09-16 14:18 | W.NOCTURNAL ---
Date of service: 09/14/23 Time of Service: 20:56 Nocturnal Oximetry Note: Overnight Oximetry Amount of time analyzed: 7 hours 52 minutes Number of minutes under 88%: 144.7 JASON: 12.0 Appearance of oxygen saturation pattern: Sharp increases and decreased which may represent ANIVAL. Recommendation: Recommend formal sleep study or repeat study on nocturnal oxygen Belem Armenta MD Pulmonary & Critical Care Medicine
== END 2023-09-14 04:42 | disposition home or self-care (01) ==
LOC: RT 04:41
PROVIDERS: PCP Nurse Practitioner Family; Visit Provider Physician Assistant Surgical
DX: J44.9 Chronic obstructive pulmonary disease, unspecified (principal)
CPT/HCPCS: 94060; 94726; 94729; 94762

== ENCOUNTER 2023-10-18 08:43 | Outpatient (CLI) | payer MEDICARE, SELFPAY ==
--- NOTE | 2023-10-18 08:30 | RT.EKG_ITS ---
APPROVED REPORT Exam: Resting ECG Reason for Exam: pt on amiodarone, QT monitoring Patient Location: O HR:57 bpm ECG Measurements Heart Rate 57 AXIS TX 303 P -33 QRSd 164 QRS -28 QT 493 T 101 QTc 480 Conclusion Sinus rhythm...normal P axis, V-rate 50- 99 Prolonged TX interval...TX >220, V-rate 50- 90 Left bundle branch block...QRSd>120, broad/notched R
== END 2023-10-18 08:44 | disposition home or self-care (01) ==
LOC: DI.CARD 08:44
PROVIDERS: PCP Nurse Practitioner Family; Visit Provider Internal Medicine Cardiovascular Disease
DX: Z79.899 Other long term (current) drug therapy
CPT/HCPCS: 93010

== ENCOUNTER → 2023-10-18 10:23 | Outpatient (BNVA) | payer MEDICARE, SELFPAY | PROVIDERS: PCP Nurse Practitioner Family; Visit Provider Internal Medicine Cardiovascular Disease | DX: I48.0 Paroxysmal atrial fibrillation (principal); I44.7 Left bundle-branch block, unspecified; I25.10 Atherosclerotic heart disease of native coronary artery without angina pectoris; I10 Essential (primary) hypertension | CPT/HCPCS: 93005; 99213 ==

== ENCOUNTER → 2023-11-09 13:28 | Outpatient (BNVA) | payer MEDICARE, SELFPAY | PROVIDERS: PCP Nurse Practitioner Family; Referring Provider Nurse Practitioner Family; Visit Provider Student in an Organized Health Care Education/Training Program | DX: J98.4 Other disorders of lung (principal); E66.9 Obesity, unspecified; R06.09 Other forms of dyspnea; G47.33 Obstructive sleep apnea (adult) (pediatric); Z87.891 Personal history of nicotine dependence | CPT/HCPCS: 99214 ==

== ENCOUNTER 2023-12-02 14:08 | Outpatient (REF) | payer MEDICARE, SELFPAY ==
[2023-12-02 15:14] LABS: Anion Gap 7.1 mmol/L (3-11); BUN 33 mg/dL (7-18); CO2 27.9 mmol/L (21.0-32.0); CREATININE 1.8 mg/dL (0.70-1.30); Calcium 8.4 mg/dL (8.5-10.1); Chloride 105 mmol/L (98-107); Estimated GFR 37.82 (mL/min/1.73m2); Glucose 177 mg/dL (74-106); Potassium 4.8 mmol/L (3.5-5.1); Sodium 140 mmol/L (136-145)
== END 2023-12-02 14:09 | disposition home or self-care (01) ==
LOC: NCHCN 14:08
PROVIDERS: PCP Nurse Practitioner Family; Visit Provider Family Medicine
DX: I10 Essential (primary) hypertension (principal)
CPT/HCPCS: 80048

== ENCOUNTER → 2024-02-07 14:31 | Outpatient (BNVA) | payer MEDICARE, SELFPAY | PROVIDERS: PCP Nurse Practitioner Family; Referring Provider Nurse Practitioner Family; Visit Provider Physician Assistant Surgical | DX: R06.09 Other forms of dyspnea (principal); G47.33 Obstructive sleep apnea (adult) (pediatric); J98.4 Other disorders of lung; E66.9 Obesity, unspecified; Z87.891 Personal history of nicotine dependence | CPT/HCPCS: 94618; 99214 ==

== ENCOUNTER 2024-03-02 22:48 | Outpatient (REF) | payer MEDICARE, SELFPAY ==
[2024-03-02 15:27] LABS: Bilirubin Negative (Negative); Blood Negative (Negative); Clarity Clear (Clear); Glucose >=1000 mg/dL (Negative); Ketones Negative (Negative); Leukocyte Esterase Negative (Negative); Nitrite Negative (Negative); Specific Gravity 1.015 (1.005-1.025); Urobilinogen 0.2 mg/dL (Up to 0.2)
[2024-03-02 15:33] LABS: Bacteria Negative HPF (Negative); C & S Indicated? No; Crystals Negative HPF (Negative); Epithelial Cells Rare HPF (Negative); Mucus Negative (Negative); RBC 0-2 HPF (0-2); WBC Negative HPF (0-5)
[2024-03-02 15:45] LABS: Anion Gap 6.9 mmol/L (3-11); BUN 29 mg/dL (7-18); CO2 28.1 mmol/L (21.0-32.0); Calcium 8.7 mg/dL (8.5-10.1); Chloride 104 mmol/L (98-107); Estimated GFR 33.32 (mL/min/1.73m2); Glucose 150 mg/dL (74-106); Potassium 4.9 mmol/L (3.5-5.1); Sodium 139 mmol/L (136-145)
[2024-03-02 16:37] LABS: COMMENT (LAB VIEW ONLY) 72.18 mg/dL; Microalb ug/mg Crea 30.3 ug/mg Cr
== END 2024-03-02 22:49 | disposition home or self-care (01) ==
LOC: NCHCN 22:48
PROVIDERS: PCP Nurse Practitioner Family; Visit Provider Nurse Practitioner Family
DX: N18.32 Chronic kidney disease, stage 3b (principal); E11.9 Type 2 diabetes mellitus without complications; R31.0 Gross hematuria
CPT/HCPCS: 80048; 81003; 81015; 82043; 82570

== ENCOUNTER 2024-03-07 15:15 | Outpatient (REF) | payer MEDICARE, SELFPAY ==
[2024-03-07 17:02] LABS: Abs Immature Grans 0.02 10^3/uL (0.0-0.06); Absolute Basophil Count 0.04 10^3/uL (0.0-0.2); Absolute Eosinophil Count 0.24 10^3/uL (0.0-0.7); Absolute Lymphocyte Count 1.34 10^3/uL (1.2-3.4); Absolute Monocyte Count 0.81 10^3/uL (0.1-0.8); Basophils % 0.7 %; Eosinophils % 3.9 %; HCT 41.3 % (40.0-50.0); HGB 12.8 g/dL (13.5-17.5); Immature Grans % 0.3 %; Lymphocytes % 21.8 %; MCV 93 fL (80-95); MPV 10.2 fL (8.0-11.0); Monocytes % 13.2 %; Neutrophils % 60.1 %; Platelet Count 194 10^3/uL (130-400); RBC 4.42 10^6/uL (4.36-5.78); RDW 13.5 % (11.8-14.1); RDW-SD 46.2 fL; WBC 6.15 10^3/uL (4.4-10.8)
[2024-03-07 17:50] LABS: BUN 25 mg/dL (7-18); Calcium 8.9 mg/dL (8.5-10.1); Chloride 104 mmol/L (98-107); Estimated GFR 33.32 (mL/min/1.73m2); Glucose 212 mg/dL (74-106); NT-proBNP 354 pg/mL (<300); Potassium 4.8 mmol/L (3.5-5.1); Sodium 142 mmol/L (136-145); Uric Acid 7.4 mg/dL (3.5-7.2)
== END 2024-03-07 15:16 | disposition home or self-care (01) ==
LOC: NCHCN 15:15
PROVIDERS: PCP Physician Assistant Medical; Visit Provider Physician Assistant Medical
DX: R06.09 Other forms of dyspnea (principal); R60.0 Localized edema; N18.32 Chronic kidney disease, stage 3b; R79.89 Other specified abnormal findings of blood chemistry
CPT/HCPCS: 80048; 83880; 84550; 85025

== ENCOUNTER → 2024-04-27 12:07 | Outpatient (BNVA) | payer MEDICARE, SELFPAY | PROVIDERS: PCP Physician Assistant Medical; Referring Provider Nurse Practitioner Family; Visit Provider Physician Assistant Surgical | DX: J98.4 Other disorders of lung (principal); R06.09 Other forms of dyspnea; G47.33 Obstructive sleep apnea (adult) (pediatric); E66.9 Obesity, unspecified; Z87.891 Personal history of nicotine dependence | CPT/HCPCS: 99214 ==

== ENCOUNTER → 2024-06-06 13:59 | Outpatient (BNVA) | payer MEDICARE, SELFPAY | PROVIDERS: PCP Physician Assistant Medical; Referring Provider Physician Assistant Medical; Visit Provider Internal Medicine Cardiovascular Disease | DX: I48.0 Paroxysmal atrial fibrillation (principal); I42.9 Cardiomyopathy, unspecified; I25.10 Atherosclerotic heart disease of native coronary artery without angina pectoris | CPT/HCPCS: 99213 ==

== ENCOUNTER 2024-08-22 15:17 | Outpatient (REF) | payer MEDICARE, SELFPAY ==
[2024-08-22 16:03] LABS: Anion Gap 7.6 mmol/L (3-11); BUN 31 mg/dL (7-18); CO2 27.4 mmol/L (21.0-32.0); CREATININE 2.2 mg/dL (0.70-1.30); Calcium 8.7 mg/dL (8.5-10.1); Chloride 104 mmol/L (98-107); Estimated GFR 29.72 (mL/min/1.73m2); Glucose 239 mg/dL (74-106); Potassium 4.7 mmol/L (3.5-5.1); Sodium 139 mmol/L (136-145)
== END 2024-08-22 15:18 | disposition home or self-care (01) ==
LOC: NCHCN 15:17
PROVIDERS: PCP Physician Assistant Medical; Visit Provider Family Medicine
DX: N18.30 Chronic kidney disease, stage 3 unspecified (principal)
CPT/HCPCS: 80048

== ENCOUNTER → 2024-10-24 09:27 | Outpatient (BNVA) | payer MEDICARE, SELFPAY | PROVIDERS: PCP Nurse Practitioner Family; Referring Provider Physician Assistant Medical; Visit Provider Physician Assistant Surgical | DX: R06.09 Other forms of dyspnea (principal); J98.4 Other disorders of lung; E66.9 Obesity, unspecified; Z87.891 Personal history of nicotine dependence | CPT/HCPCS: 99214 ==

== ENCOUNTER → 2024-11-29 12:53 | Outpatient (BNVA) | payer MEDICARE, SELFPAY | PROVIDERS: PCP Nurse Practitioner Family; Referring Provider Nurse Practitioner Family; Visit Provider Podiatrist | DX: E11.22 Type 2 diabetes mellitus with diabetic chronic kidney disease (principal); N18.4 Chronic kidney disease, stage 4 (severe); Z79.4 Long term (current) use of insulin; B35.1 Tinea unguium; I87.2 Venous insufficiency (chronic) (peripheral); R60.0 Localized edema; R20.8 Other disturbances of skin sensation; I83.93 Asymptomatic varicose veins of bilateral lower extremities; M79.671 Pain in right foot; M79.672 Pain in left foot; R23.8 Other skin changes; L60.8 Other nail disorders; I73.89 Other specified peripheral vascular diseases | CPT/HCPCS: 11719; 99214 ==

== ENCOUNTER 2024-12-25 04:29 | Outpatient (CLI) | payer MEDICARE, SELFPAY ==
--- NOTE | 2025-01-14 09:25 | W.PFT ---
Date of service: 12/25/24 Time of Service: 07:58 Pulmonary Function Test Result Indications: Amiodarone use Interpretation Spirometry: No airflow limitation. Lung Volumes: Normal lung volumes Diffusion Capacity: Reduced diffusion Airway Pressure: Normal airways resistance Impression Normal pulmonary function testing Clinical Correlation therefore is recommended.
== END 2024-12-25 04:30 | disposition home or self-care (01) ==
PROVIDERS: PCP Nurse Practitioner Family; Visit Provider Student in an Organized Health Care Education/Training Program
DX: Z79.899 Other long term (current) drug therapy (principal); I48.0 Paroxysmal atrial fibrillation
CPT/HCPCS: 94726; 94729; 94010

== ENCOUNTER 2025-01-03 02:51 | Outpatient (CLI) | payer MEDICARE, SELFPAY ==
--- NOTE | 2025-01-03 08:30 | DI.RAD_ITS ---
Exam(s) XR CHEST 2V PA LATERAL EXAM: XR CHEST 2V PA LATERAL CLINICAL HISTORY: monitoring on amiodarone,medication management,[id number] TECHNIQUE: 2D digital imaging was performed of the chest. Two images were obtained. PA and lateral views were obtained. COMPARISON: CR XR CHEST 2V PA LATERAL from 09/08/2023 FINDINGS: MEDIASTINUM: Normal. HEART: Normal. PULMONARY VASCULATURE: Normal. LUNGS: No focal consolidating infiltrates. PLEURAL SPACE: No pleural effusion or pneumothorax. BONE:Within normal limits for the patient's age. OTHER FINDINGS:Normal. IMPRESSION: No acute pulmonary findings. DATA REPOSITORY: RADIATION DOSE DELIVERED:
== END 2025-01-03 03:11 ==
PROVIDERS: PCP Nurse Practitioner Family; Visit Provider Nurse Practitioner Family
DX: Z79.899 Other long term (current) drug therapy (principal)
CPT/HCPCS: 71046

== ENCOUNTER 2025-01-03 05:08 | Outpatient (CLI) | payer MEDICARE, SELFPAY ==
[2025-01-03 15:06] LABS: HCT 40.4 % (40.0-50.0); HGB 12.8 g/dL (13.5-17.5); MCH 28.8 pg (27.0-33.0); MCHC 31.7 % (32.0-36.0); MCV 91 fL (80-95); MPV 9.6 fL (8.0-11.0); Platelet Count 153 10^3/uL (130-400); RBC 4.44 10^6/uL (4.36-5.78); RDW 14.8 % (11.8-14.1); RDW-SD 49.4 fL; WBC 8.59 10^3/uL (4.4-10.8)
[2025-01-03 15:15] LABS: Hemoglobin A1C 7.8 % (<5.7)
[2025-01-03 16:27] LABS: Iron 38 ug/dL (65-175); Total Iron Binding Capacity 272 ug/dL (250-450); Transferrin Sat 14 % (20-55)
[2025-01-03 16:51] LABS: ALT 24 U/L (16-63); AST 16 U/L (15-37); Albumin 3.4 g/dL (3.4-5.0); Alkaline Phosphatase 137 U/L (46-116); Anion Gap 8.8 mmol/L (3-11); BUN 28 mg/dL (7-18); Bilirubin, Total 0.8 mg/dL (0.2-1.0); CO2 29.2 mmol/L (21.0-32.0); CREATININE 1.7 mg/dL (0.70-1.30); Calcium 8.8 mg/dL (8.5-10.1); Chloride 103 mmol/L (98-107); Estimated GFR 40.25 (mL/min/1.73m2); Ferritin 68 ng/mL (26-388); Glucose 145 mg/dL (74-106); Potassium 4.9 mmol/L (3.5-5.1); Sodium 141 mmol/L (136-145); TSH (W/Ref FT4) 3.42 uIU/mL (0.36-3.74); Total Protein 7.3 g/dL (6.4-8.2)
[2025-01-03 18:23] LABS: Bilirubin, Direct 0.2 mg/dL (0.0-0.2)
== END 2025-01-03 05:09 | disposition home or self-care (01) ==
LOC: LBO 05:08
PROVIDERS: PCP Nurse Practitioner Family; Visit Provider Nurse Practitioner Family
DX: E61.1 Iron deficiency (principal); Z79.899 Other long term (current) drug therapy
CPT/HCPCS: 36415; 80048; 80076; 85027; 82728; 83036; 83540; 83550; 84443

== ENCOUNTER 2025-01-03 14:38 | Outpatient (CLI) | payer MEDICARE, SELFPAY ==
--- NOTE | 2025-01-03 | DI.US_ITS ---
Exam(s) US RENAL EXAM: US RENAL CLINICAL HISTORY: N18.32 Stage 3b Chronic kidney disease. TECHNIQUE: Recinos scale, color and spectral Doppler were used. COMPARISON: CT CT THORAX ABD/PEL CTA from 04/07/2023 FINDINGS: Renal size in cm: Right: The patient has had a right nephrectomy.. Left: 12.3. Echogenicity: Normal. Hydronephrosis: No. Cyst or mass: No. Nephrolithiasis: No. Other findings: None. Bladder:Normal. Ureteral jets: Left: Visualized and unremarkable. Prevoid vol:174 cc Postvoid vol:12 cc Prostate: 24 cc Renal color flow: Symmetric and within normal limits. IMPRESSION: 1. Prior right nephrectomy. 2. Unremarkable left kidney. DATA REPOSITORY:
== END 2025-01-03 14:58 ==
PROVIDERS: PCP Nurse Practitioner Family; Visit Provider Registered Nurse Nephrology
DX: N18.32 Chronic kidney disease, stage 3b (principal); Z79.899 Other long term (current) drug therapy
CPT/HCPCS: 76770

== ENCOUNTER 2025-02-01 10:44 | Outpatient (RCR) | payer MEDICARE, SELFPAY ==
--- NOTE | 2025-02-06 15:28 | W.HOLTRPT ---
Date of service: 02/06/25 Time of Service: 15:29 Holter Monitor Report Referring Provider:: Gil Murray Indications:: Atrial fibrillation Holter Monitor Note: This is a 48-hour Holter monitor Predominant rhythm was sinus with an average heart rate of 96. Minimum was 63, maximum 151 There were frequent premature ventricular contractions comprising 6% of total There were frequent atrial premature beats, comprising 8% of total Runs of apparent supraventricular tachycardia or possibly sinus tachycardia did occur. Atrial flutter could not be excluded There was no high-grade AV block, no pauses greater than 3 seconds. Symptoms correlated to sinus rhythm
== END 2025-02-22 23:59 | disposition home or self-care (01) ==
LOC: CARDOPNVT 10:44
PROVIDERS: PCP Nurse Practitioner Family; Visit Provider Internal Medicine Cardiovascular Disease
DX: I45.4 Nonspecific intraventricular block (principal); I48.0 Paroxysmal atrial fibrillation; I47.10 Supraventricular tachycardia, unspecified
CPT/HCPCS: 93227; 93225; 93226

== ENCOUNTER 2025-02-06 07:54 | Outpatient (CLI) | payer MEDICARE, SELFPAY | END 2025-02-06 07:55 | disposition home or self-care (01) | LOC: DI.CARD 07:55 | PROVIDERS: PCP Nurse Practitioner Family; Visit Provider Internal Medicine Cardiovascular Disease | CPT/HCPCS: 93010 ==

== ENCOUNTER 2025-03-06 13:08 | Outpatient (CLI) | payer MEDICARE, SELFPAY ==
[2025-03-06 12:32] LABS: Vitamin B12 720 pg/mL (193-986)
[2025-03-07 11:09] LABS: Lyme Ab w Rflx to Lyme Confirm Negative (Negative)
[2025-03-09 00:53] LABS: B. miyamotoi PCR Negative (Negative); Babesia divergens/MO-1 Negative (Negative); Ehrlichia muris eauclairensis Negative (Negative)
== END 2025-03-06 13:09 | disposition home or self-care (01) ==
LOC: LBO 13:08
PROVIDERS: PCP Nurse Practitioner Family; Visit Provider Nurse Practitioner Family
DX: T14.90XA Injury, unspecified, initial encounter (principal); W57.XXXA Bitten or stung by nonvenomous insect and other nonvenomous arthropods, initial encounter; R53.83 Other fatigue
CPT/HCPCS: 36415; 87798; 82607; 86618

== ENCOUNTER 2025-06-04 03:24 | Outpatient (CLI) | payer MEDICARE, SELFPAY ==
[2025-06-04 16:30] LABS: BUN 39 mg/dL (7-18); Potassium 3.8 mmol/L (3.5-5.1)
== END 2025-06-04 03:25 | disposition home or self-care (01) ==
LOC: LBO 03:24
PROVIDERS: PCP Nurse Practitioner Family; Referring Provider Nurse Practitioner Family; Visit Provider Nurse Practitioner Family
DX: N18.4 Chronic kidney disease, stage 4 (severe) (principal)
CPT/HCPCS: 36415; 84520; 82565; 84132